=== PATIENT | female | born 1965 | race African-American/Black ===

== ENCOUNTER 2024-09-18 11:17 | Emergency (ER) | payer BC, SELFPAY ==
[2024-09-18 11:38] LABS: Glucose Point of Care 180 mg/dl (65-105)
[2024-09-18 11:40] VITALS: BP 137/70; PULSE 86
[2024-09-18 11:42] VITALS: BP 122/104; PULSE 90
[2024-09-18 11:44] VITALS: BP 133/85; PULSE 85
[2024-09-18 11:55] VITALS: BP 134/76; O2SAT 100
--- NOTE | 2024-09-18 12:18 | ED_ITS ---
HPI - General Adult General Chief complaint: Chest Pain Stated complaint: left side hurts History of Present Illness HPI narrative: Neetu Thakkar Is a 58 year female with past medical history CVA 1 year ago, diabetes, hypertension who presents with son with having generalized weakness this started today, left sided chest wall pain for 1 week. During triage her blood pressure was noted to be 61/42, patient felt dizzy repeated blood pressure was 62/44. Related Data Home Medications ?Medication ?Instructions ?Recorded ?Confirmed ?Last Taken ?Type aspirin 81 mg tablet,delayed 81 mg PO DAILY 09/18/24 09/18/24 Unknown History release carvedilol 6.25 mg tablet 6.25 mg PO DAILY 09/18/24 09/18/24 Unknown History dapagliflozin propanediol 10 mg 10 mg PO DAILY 09/18/24 09/18/24 Unknown History tablet (Farxiga) duloxetine 30 mg capsule,delayed 30 mg PO DAILY 09/18/24 09/18/24 Unknown History release furosemide 40 mg tablet 40 mg PO DAILY 09/18/24 09/18/24 Unknown History hydralazine 25 mg tablet 25 mg PO DAILY 09/18/24 09/18/24 Unknown History latanoprost 0.005 % eye drops 1 drp EACH EYE QPM 09/18/24 09/18/24 Unknown History Allergies Allergy/AdvReac Type Severity Reaction Status Date / Time No Known Allergies Allergy Verified 09/18/24 12:27 Review of Systems Review of Systems: All systems reviewed & are unremarkable except as noted in HPI and below PMFSH Past Medical History Medical History (Updated 09/18/24 @ 18:54 by Jasmine Lea PA-C) History of CVA (cerebrovascular accident) History of hypertension History of diabetes mellitus Social History Social History Substance use: never Exam Narrative: GENERAL: frail HEAD: Normocephalic, atraumatic. ENT: Nares clear, no rhinorrhea or epistaxis. NECK: Supple. No adenopathy or masses. CHEST: Clear to auscultation. No respiratory distress. No wheezes rales or rhonchi HEART: Regular rate and rhythm. Normal peripheral pulses. EXTREMITIES: Normal range of motion. No edema. SKIN: Warm, dry, no rash. NEURO: alert/ left sided residual weakness PSYCH: Normal mood, flat Course Course Level of Care: Express Care Visit Vital Signs Vital signs: Vital Signs Pulse Rate 86 09/18/24 11:40 Blood Pressure 137/70 09/18/24 11:40 Pulse Rate 85 09/18/24 11:44 Blood Pressure 134/76 09/18/24 11:55 Pulse Oximetry 100 09/18/24 11:55 Oxygen Delivery Room Air 09/18/24 11:55 Medical Decision Making MDM Narrative Medical decision making narrative: with pt arriving with weakness/ hypotension - she was taken to an exam room and layed down. she states she has had left sided chest pain for a week, Son states she has been more fatigued and weak today. She has needed help getting up which is new. EKG was done which is Normal Sinus rate 88, No ST elevation noted Orthostatics done and were negative but pt felt dizzy and if she was going to pass out. Blood sugar 180 Discussed with pt and son that I would recommend she go to the ER for more of a work up. She and her son are agreeable to this plan and agree to EMS transport I spoke with Attending Dr. Castillo at [facility], who accepts pt transfer. Medical Records Medical records reviewed: Yes I reviewed the external patient's medical records. Vital Signs Vital Signs: Vital Signs Pulse Rate 86 09/18/24 11:40 Blood Pressure 137/70 09/18/24 11:40 Pulse Rate 85 09/18/24 11:44 Blood Pressure 134/76 09/18/24 11:55 Pulse Oximetry 100 09/18/24 11:55 Oxygen Delivery Room Air 09/18/24 11:55 Lab Data Lab results reviewed: Yes I reviewed the patient's lab results. Labs: Lab Results 09/18/24 Range/Units 11:35 POC Capillary Glucose 180 H (65-105) mg/dl ECG Data EKG #1: Attestation: I personally reviewed and interpreted this ECG as follows: ECG completion date: 09/18/24 ECG completion time: 11:42 Prior ECG tracings: not available for review Interpretation: Sinus Rhythm Normal ECG, Rate 88, GA 144, QRS 84, QT 350, P 46 EKG Interpretation: normal rate, sinus rhythm and no ectopy Discharge Plan Discharge Clinical Impression: Chest pain in adult, Weakness Hypotension Qualifiers: Hypotension type: unspecified hypotension type Qualified Code(s): I95.9 - Hypotension, unspecified Patient Disposition: Acute Care Hospital [facility] Condition: Stable Patient Language: Indian Prescriptions: No Action loratadine [Claritin] 10 mg tablet 10 mg PO DAILY Qty: 30 0RF fluticasone propionate [Flonase Allergy Relief] 50 mcg/actuation s pray,suspension 2 spray NASAL DAILY Qty: 15.8 0RF Rx Instructions: administer into each nostril aspirin 81 mg tablet,delayed release (DR/EC) 81 mg PO DAILY carvedilol 6.25 mg tablet 6.25 mg PO DAILY dapagliflozin propanediol [Farxiga] 10 mg tablet 10 mg PO DAILY duloxetine 30 mg capsule,delayed release(DR/EC) 30 mg PO DAILY furosemide 40 mg tablet 40 mg PO DAILY hydralazine 25 mg tablet 25 mg PO DAILY latanoprost 0.005 % drops 1 drp EACH EYE QPM Follow-up/Referrals: Torsten,CAMI Daly [Primary Care Provider] - Time of Disposition: 12:05
--- NOTE | 2024-09-18 16:03 | ECG_ITS ---
Test Date: 2024-09-18 16:41:21 Measurements Intervals [place] Rate: 94 P: 56 HI: 150 QRS: 16 QRSD: 81 T: 49 QT: 343 QTc: 430 Interpretive Statements SINUS RHYTHM ST ELEVATION IN DIFFUSE LEAD- PROBABLY EARLY REPOLARIZATION BASELINE ARTIFACT- I, II, AVR, AVL, AVF, V1 BORDERLINE ECG Compared to ECG 09/18/2024 11:42:08 No significant changes Electronically Signed On 09-18-2024 16:44:11 PAINT PREPARER by Soy Chambers D.O.
== END 2024-09-18 11:55 | disposition short-term general hospital (02) ==
PROVIDERS: Emergency Provider Nurse Practitioner Family; PCP Physician Assistant
DX: I95.9 Hypotension, unspecified (principal); R07.9 Chest pain, unspecified; R53.1 Weakness; I10 Essential (primary) hypertension; E11.9 Type 2 diabetes mellitus without complications; Z86.73 Personal history of transient ischemic attack (TIA), and cerebral infarction without residual deficits; Z79.899 Other long term (current) drug therapy; Z79.82 Long term (current) use of aspirin
CPT/HCPCS: 82948; 93005; 99215; G0463

== ENCOUNTER 2024-09-18 12:21 | Emergency (ER) | payer BC, SELFPAY ==
[2024-09-18] VITALS (8 sets, daily range): BP systolic 94–143; BP diastolic 56–79; PULSE 89–93; RESP 14–20; TEMP 36.6; O2SAT 100
--- NOTE | ~2024-09-18 | XR_ITS ---
EXAMINATION: XR chest 2V DATE: 09/18/2024 15:27 INDICATION: Left-sided chest pain and dizziness TECHNIQUE: PA and lateral views of the chest were obtained. COMPARISON: Chest radiograph dated 05/21/2018 and 03/05/2012 FINDINGS: The lungs are clear with no focal airspace opacities, pulmonary edema, pleural effusion or pneumothor ax. The cardiomediastinal silhouette is normal. Mild thoracic spondylosis with chronic mild anterior wedging of a midthoracic vertebral body. IMPRESSION: 1. No acute cardiopulmonary disease. Reviewed, dictated and finalized at location A. TER [facility]ART[facility]APHIC
--- OUTSIDE RECORDS SUMMARY | 2024-09-18 12:24 | XMS_ITS | Clinical Summary ---
Author Organization [facility] Address [address] [place] [id number] Phone Care Team Providers Care Clinical Academic Allergist Name Role Phone Malika Sarmiento Primary Care Provider [phone] Allergies No known active allergies Medications Medication Sig Dispensed Refills Start Date End Date Status furosemide (LASIX) 40 MG tablet Take 40 mg by mouth 1 (one) time each day Active latanoprost (XALATAN) 0.005 % ophthalmic solution Administer 1 drop into both eyes every night Active carvedilol (COREG) 6.25 MG tablet Take 6.25 mg by mouth in the morning and 6.25 mg in the evening. Take with meals. Active hydrALAZINE (APRESOLINE) 25 MG tablet Take 25 mg by mouth in the morning and 25 mg in the evening and 25 mg before bedtime. Active aspirin (ST AHMET) 81 MG EC tablet Take 81 mg by mouth 1 (one) time each day Active insulin lispro (HumaLOG) 100 UNIT/ML injection Inject under the skin 3 (three) times a day before meals Active rosuvastatin (CRESTOR) 10 MG tablet Take 10 mg by mouth at bed time Active insulin glargine (LANTUS) 100 UNIT/ML injection Inject 30 Units under the skin every night Active Dapagliflozin Propanediol (Farxiga) 10 MG tablet Take 10 mg by mouth 1 (one) time each day Active DULoxetine (CYMBALTA) [address] capsule Take 30 mg by mouth 1 (one) time each day Active latanoprost (XALATAN) 0.005 % ophthalmic solution 1 drop every night Active brimonidine (ALPHAGAN P) 0.1 % ophthalmic solution Active Active Problems Problem Noted Date Diagnosed Date Iron deficiency anemia 06/17/2024 Serum creatinine above reference range Diabetes mellitus 06/16/2024 Essential hypertension 06/16/2024 Encounters Date Type Department Care Team Description 06/18/2024 1:40 PM LEAD COATER Office Visit [facility] [address] [facility] [address] [place] [address] Timmy Gomez MD Stage 3b chronic kidney disease (CMS-HCC) (Primary Dx); Essential hypertension from Last 3 Months Social History Tobacco Use Types Packs/Day Years Used Date Smoking Tobacco: Never Smokeless Tobacco: Never Tobacco Cessation:Counseling Given: Not Answered Sex and Gender Information Value Date Recorded Sex Assigned at Not on file Gender Identity Not on file Sexual Orientation Not on file Last Filed Vital Signs Vital Sign Reading Time Taken Comments Blood Pressure 138/77 06/18/2024 1:39 PM LEAD COATER Pulse 98 06/18/2024 1:39 PM LEAD COATER Temperature - - Respiratory Rate - - Oxygen Saturation - - Inhaled Oxygen Concentration - - Weight 66.2 kg (146 lb) 06/18/2024 1:39 PM LEAD COATER Height 165.1 cm (5' 5 ) 06/18/2024 1:39 PM LEAD COATER Body Mass Index 24.3 06/18/2024 1:39 PM LEAD COATER Plan of Treatment Upcoming Encounters Date Type Department Care Team (Late st Contact Info) Description 09/22/2024 1:20 PM LEAD COATER Office Visit [facility] [address] [facility] [address] [place] [address] Timmy Gomez MD [address] [address] Health Maintenance Due Date Last Done Comments Diabetic Foot Exam 10/19/1975 Ophthalmology Exam 10/19/1975 Pneumococcal PPSV23 Highest Risk Adult (1 of 3 - PCV13 ) 1984 Influenza Vaccine (#1) 2024 Care Teams Clinical Academic Allergist Relationship Specialty Start Date End Date Malika Sarmiento PA [address] [place] [phone] PCP - General Family Medicine 06/16/24
--- OUTSIDE RECORDS SUMMARY | 2024-09-18 12:24 | XMS_ITS | Encounter Summary ---
Author Organization [facility] Address [address] [place] [id number] Care Team Providers Care Medical Technician Assistant Name Role Phone Dianna Garcia MD Primary Care Provider [facility] Malika Sarmiento PA-C Primary Care Provider [phone] Encounter Details Date Type Department Care Team (Latest Contact Info) Description 06/03/2018 Abstract [facility] , Maxine Whipple MD Social History Tobacco Use Types Packs/Day Years Used Date Smoking Tobacco: Never Comments Unknown Sex and Gender Information Value Date Recorded Sex Assigned at Female 08/19/2024 1:31 PM CHEMIST INTERN Legal Sex Female 9:22 PM CDT Gender Identity Not on file Sexual Orientation Not on file documented as of this encounter Plan of Treatment Not on file documented as of this encounter Visit Diagnoses Not on filedocumented in this encounter Care Teams Medical Technician Assistant Relationship Specialty Start Date End Date Dianna Garcia MD PCP - General 05/22/13 04/30/24 Malika Sarmiento PA-C [address] [place] [id number] PCP - General PHYSICIAN ZIPPER JOINER 05/01/24 documented as of this encounter
--- OUTSIDE RECORDS SUMMARY | 2024-09-18 12:24 | XMS_ITS | Clinical Summary ---
Author Organization [facility] Address [address] [place] [address] Care Team Providers Care Bulb Farmworker Name Role Phone Benji Zeng MD Unavailable Source Comments [facility],non-owned Affiliates and Associated Physician Practices is amultiple site organization consisting of ambulatory clinics and hospital sitesin [place], [place]. This disclosure is being madepursuant to the Care Everywhere program and may not contain all information available regarding this patient. Last updated 18.[facility] [employer] Social History Tobacco Use Types Packs/Day Years Used Date Smoking Tobacco: Never Assessed Sex and Gender Information Value Date Recorded Sex Assigned at Not on file Gender Identity Not on file Sexual Orientation Not on file Plan of Treatment Health Maintenance Due Date Last Done Comments COLOGUARD (AGES 45-75) - COL ON CA SCREENING 1965 COLON MONITORING 1965 COLONOSCOPY - COLON CA SCREENING 1965 CT COLONOGRAPHY - COLON CA SCREENING 1965 Colorectal Cancer Screening 1965 FIT - COLON CA SCREENING 1965 FLEX SIG - COLON CA SCREENING 1965 LIPID TESTING 1965 MAMMOGRAM 1965 PAP SMEAR 1965 HIV SCREENING 1980 HEPATITIS C SCREENING 10/14/1983 DTAP/TDAP/TD VACCINES (1 - Tdap) 1984 HEPATITIS B VACCINE (1 of 3 - 19+ 3-dose series) 1984 PNEUMOCOCCAL VACCINE 50+ (1 of 1 - PCV) 10/19/2015 ZOSTER VACCINE (1 of 2) 10/19/2015 COVID-19 VACCINE ( - 2023-2 5 season) 2024 INFLUENZA VACCINE (#1) 2024 DEPRESSION SCREENING 07/29/2024 HIB VACCINE Aged Out No longer eligi ble based on patient's age to complete this topic HPV VACCINE Aged Out No longer eligi ble based on patient's age to complete this topic MENINGOCOCCAL (Group B) VACCINE Aged Out No longer eligible based on patient's age to complete this topic MENINGOCOCCAL VACCINE Aged Out No aleshia juan diego eligible based on patient's age to complete this topic PNEUMOCOCCAL VACCINE Aged Out No long er eligible based on patient's age to complete this topic Care Teams Bulb Farmworker Relationship Specialty Start Date End Date Benji Zeng MD [address] [place] [address] Hospitalist 12/25/23
--- OUTSIDE RECORDS SUMMARY | 2024-09-18 12:24 | XMS_ITS | Patient Health Summary ---
Author Organization [facility] Address [address] [place] [address] Care Team Providers Care Washing Machine Operator Name Role Phone Benji Zeng MD Unavailable [phone] Note from [facility],non-owned Affiliates and Associated Physician Practices is amultiple site organization consisting of ambulatory clinics and hospital sitesin [place], [place], [place] and [place]. This disclosure is being madepursuant to the Care Everywhere program and may not contain all information available regarding this patient. Last updated 18.[facility] Social History Tobacco Use Types Packs/Day Years Used Date Smoking Tobacco: Never Assessed Sex and Gender Information Value Date Recorded Sex Assigned at Not on file Gender Identity Not on file Sexual Orientation Not on file Care Teams Washing Machine Operator Relationship Specialty Start Date End Date Benji Zeng MD [address] [facility] [place] [place] [address] Hospitalist 12/25/23
--- OUTSIDE RECORDS SUMMARY | 2024-09-18 12:24 | XMS_ITS | Clinical Summary ---
Author Organization [facility] Address [address] [place] [address] Care Team Providers Care Tearoom Hostess Name Role Phone Malika Sarmiento Primary Care Provider [phone] Allergies No known active allergies Medications aspirin 81 mg enteric coated tablet Take 1 tablet (81 mg total) by mouth daily 30 tablet 11 12/27/2023 12/27/19 25 Active carvediloL (COREG) 6.25 mg tablet Take 1 tablet (6.25 mg total) by mouth 2 (two) times a day with meals 60 tablet 1 12/26/2023 12/26/19 25 Active clopidogreL (PLAVIX) 75 mg tablet Take 1 tablet (75 mg total) by mouth daily 30 tablet 11 12/27/2023 12/27/19 25 Active furosemide (LASIX) 40 mg tablet Take 1 tablet (40 mg total) by mouth daily 30 tablet 12/27/2023 12/27/19 25 Active hydrALAZINE (APRESOLINE) 25 mg tabletIndicatio ns:hypertension Take 1 tablet (25 mg total) by mouth 3 (three) times a day 90 tablet 1 12/26/2023 12/26/19 25 Active mirtazapine (REMERON) 15 mg tablet Take 1 tablet (15 mg total) by mouth nightly 30 tablet 12/26/2023 Active rosuvastatin (CRESTOR) 10 mg tablet Take 1 tablet (10 mg total) by mouth nightly 30 tablet 11 12/26/2023 12/26/19 25 Active insulin glargine (LANTUS) 100 unit/mL (3 mL) pen for injection Inject 38 Units under the skin nightly 15 mL 12/26/2023 Active pen needle, diabetic (Pen Needle) 32 gauge x 5/32 needle Use as directed once a day. 100 each 12/26/2023 Active insulin lispro (HumaLOG) 100 unit/mL pen for injection Inject 2-10 units under the skin 3 (three) times a day with meals. Blood glucose mg/dL 150-199: 2 units, 200-249: 4 units, 250-299: 6 units, 300-349: 8 units, 350 and greater: 10 units. Notify provider for blood glucose greater than 299 mg/dL. Refer to After Visit Summary for Sliding Scale Insulin Instructions. 15 mL 12/26/2023 Active pen needle, diabetic 32 gauge x 5/32 needle Use as directed 3 times a day. 100 each 12/26/2023 Active glucagon 1 mg kit Inject 1 mg into the muscle once as directed by provider for low blood sugar. 1 kit 12/26/2023 Active Active Problems Problem Noted Date Diagnosed Date Acute kidney injury superimposed on chronic kidn ey disease 12/13/2023 DANAY (acute kidney injury) 12/11/2023 Diabetic ketoacidosis with c ki associated with type 2 diabetes mellitus ([facility]/HCC) 12/04/2023 Encounters Date Type Department Care Team Description 06/22/2024 3:20 PM ANATOMY TEACHER - 06/22/2024 11:59 PM ANATOMY TEACHER Hospital Encounter [address] [address] Stage 3b chronic kidney disease (CKD) (HCC); Primary hypertension Discharge Disposition: Discharge to home or self care from Last 3 Months Surgical History Surgery Date Site/Laterality Comments SECTION Medical History Medical History Date Comments Anemia Hypertension Depression Tendonitis De Quervain's disease (tenosynovitis) Type 2 diabetes mellitus (HCC) Social History Tobacco Use Types Packs/Day Years Used Date Smoking Tobacco: Never Tobacco Cessation:Counseling Given: Not Answered [facility] Utilities Answer Date Recorded In the past 12 months has e [employer] gas, oil, or water [employer] threatened to shut off services in your home? No 12/05/2023 Social Connection and Isolat ion Panel [NHANES] Answer Date Recorded In a typical week, how many times do you talk on the phone with family, friends, or neighbors? More than three times a week 12/05/2023 How often do you get togethe r with friends or relatives? More than three times a week 12/05/2023 How often do you attend chur ch or amish services? More than 4 times per year 12/05/2023 Do you belong to any clubs o r organizations such as mormonism groups, unions, fraternal or athletic groups, or school groups? No 12/05/2023 How often do you attend meet ings of the clubs or organizations you belong to? Never 12/05/2023 Are you , , di vorced, , never , or living with a partner? 12/05/2023 Overall Financial Resource Strain (CARDIA) Answe r Date Recorded How hard is it for you to pa y for the very basics like food, housing, medical care, and heating? Not very hard 12/05/2023 Hunger Vital Sign Answer Date Recorded Within the past 12 months, y ou worried that your food would run out before you got the money to buy more. Never true 12/05/19 24 Within the past 12 months, t he food you bought just didn't last and you didn't have money to get more. Never true 12/05/2023 PRAPARE - Transportation Answer Date Re corded In the past 12 months, has l ack of transportation kept you from medical appointments or from getting medications? No 03/2024 In the past 12 months, has l ack of transportation kept you from meetings, work, or from getting things needed for daily living? No 12/05/2023 Housing Stability Vital Sign Answer Renny e Recorded In the last 12 months, was t here a time when you were not able to pay the mortgage or rent on time? No 12/05/2023 In the last 12 months, how many places have you lived? 1 12/05/2023 In the last 12 months, was t here a time when you did not have a steady place to sleep or slept in a skilled nursing (including now)? No 12/05/2023 Personal Safety Answer Date Recorded Have you ever been in or are you currently in a harmful physical or emotional relationship or is someone making you feel afraid or unsafe? Denies 12/13/2023 Comments Unknown Sex and Gender Information Value Date Recorded Sex Assigned at Not on file Legal Sex Female 1:36 AM ANATOMY TEACHER Gender Identity Not on file Sexual Orientation Not on file Obstetrics History Last Filed Vital Signs Vital Sign Reading Time Taken Comments Blood Pressure 93/64 12/26/2023 11:29 AM CDT Pulse 98 12/26/2023 11:29 AM CDT Temperature 36.8 C (98.2 F) 12/26/2023 11:29 AM CDT Respiratory Rate 16 12/26/2023 7:16 AM CDT Oxygen Saturation 99% 12/26/2023 11:29 AM CDT Inhaled Oxygen Concentration - - Weight 73.2 kg (161 lb 4.8 oz) 12/24/2023 3:00 P M CDT Height 167.6 cm (5' 5.98 ) 12/04/2023 12:00 PM C DT Body Mass Index 26.05 12/04/2023 12:00 PM CDT Plan of Treatment Health Maintenance Due Date Last Done Comments Breast Cancer Screening-Mammogram 1965 Cervical Cancer Screening 1965 Colon Cancer Screening-Colonoscopy 1965 Depression Screening 1965 Hepatitis C Screening 1965 Dilated Eye Exam 1965 Foot Exam 1965 Hepatitis B Screening 10/19/1983 Regular Well Visit/Exam 18-64 10/19/1983 Pneumococcal vaccine <65 (1 of 2 - PCV) 1984 Zoster Vaccine (1 of 2) 10/19/2015 Influenza Vaccine (#1) 2024 , 05/10/2022, 05/09/2021 Hemoglobin A1C 06/05/2024 12/04/2023 Lipid Panel 12/10/2024 12/11/2023, 08/23/2011 Albumin Creatinine Ratio, Urine 12/11/2024 4 eGFR 12/25/2024 12/26/2023, 11/27, 12/24/2023, Additional history exists DTaP/Tdap/Td Vaccine (3 - Td or Tdap) 02/28/2030 02/29/2020, 12/22/2008 Procedures Procedure Name Priority Date/Time Associated Diagnosis Comments US KIDNEY COMPLETE Schedule Routine, Read Routine (OP Routine) 06/22/2024 4:14 PM ANATOMY TEACHER Stage 3b chronic kidney disease (CKD) (HCC) Primary hypertension EGFR Routine 12/26/2023 9:26 AM CDT ALBUMIN CREATININE RATIO, URINE Routine 12/12/2023 2:20 PM CDT LIPID PANEL Routine 12/11/2023 3:34 AM CDT HEMOGLOBIN A1C STAT 12/04/2023 4:56 AM CDT from Last 3 Months or Most Recently Relevant to Health Maintenance Results * US Kidney Complete (06/22/2024 4:14 PM ANATOMY TEACHER) Anatomical Region Laterality Modality Kidney N/A Ultrasound 06/25/2024 9:00 PM ANATOMY TEACHER Narrative 06/25/2024 9:19 PM ANATOMY TEACHER EXAM DESCRIPTION: US KIDNEY COMPLETE REASON FOR STUDY: Abnormal renal function tests 1 week ago. TECHNIQUE: Ultrasound of the kidneys and urinary bladder was performed with grayscale imaging. COMPARISON: 12/06/2023 FINDINGS: RIGHT KIDNEY: The right kidney measures 10.5 cm in length. There is no hydronephrosis. There is normal cortical thickness and echogenicity. There is a 1.3 cm right renal cyst. LEFT KIDNEY: The left kidney measures 10.6 cm in length. There is no hydronephrosis. There is normal cortical thickness and echogenicity. URINARY BLADDER: The urinary bladder, as visualized, appears unremarkable. Only the left ureteral jet was visualized. OTHER: No other additional findings. IMPRESSION: 1.3 cm right renal cyst. Otherwise negative renal ultrasound. THIS IS AN ELECTRONICALLY VERIFIED FINAL REPORT 06/25/2024 9:19 PM - Electronically signed by Jamie Staley M.D. KT T: Report ID: [id number] Reading Location: [id number] Procedure Note Jamie Staley MD - 06/25/2024 EXAM DESCRIPTION: US KIDNEY COMPLETE REASON FOR STUDY: Abnormal renal function tests 1 week ago. TECHNIQUE: Ultrasound of the kidneys and urinary bladder was performedwith grayscale imaging. COMPARISON: 12/06/2023 FINDINGS: RIGHT KIDNEY: The right kidney measures 10.5 cm in length.There is no hydronephrosis. There is normal cortical thickness and echogenicity. There is a 1.3 cm right renal cyst. LEFT KIDNEY: The left kidney measures 10.6 cm in length. There is no hydronephrosis. There is normal cortical thickness and echogenicity. URINARY BLADDER: The urinary bladder, as visualized, appearsunremarkable. Only the left ureteral jet was visualized. OTHER: No other additional findings. IMPRESSION: 1.3 cm right renal cyst. Otherwise negative renalultrasound. THIS IS AN ELECTRONICALLY VERIFIED FINAL REPORT 06/25/2024 9:19 PM - Electronically signed by Jamie Staley M.D. KT T: Report ID: [id number] Reading Location: [place] [id number] us Timmy Gomez MD IM US PROCEDURES Final Result * (ABNORMAL) eGFR (12/26/2023 9:26 AM CDT) eGFR 38(L) >=60 mL/min/1. 73 m2 Comment: Interpretive Data Reference Interval Normal >/= 90 mL/min/1.73m2 Mildly decreased* 60 - 89 mL/min/1.73m2 Mildly to moderately decreased 45 - 59 mL/min/1.73m2 Moderately to severely decreased 30 - 44 mL/min/1.73m2 Severely decreased 15 - 29 mL/min/1.73m2 Kidney Failure < 15 mL/min/1.73m2 *Relative to young adult level Estimated glomerular filtration rate is determined by the 2020 CKD-EPI equation recommended by the National Kidney Foundation (A Unifying Approach to GFR Estimation: Recommendations of the NKF-ASK Task Force on Reassessing the Inclusion of Race in Diagnosing Kidney Disease, JASN 2020). The CKD-EPI equation should not be used for patients with unstable renal function and has not been validated in children and those over 70. Current interpretive data was last reviewed 2021. Blood 12/26/2023 9:26 AM CDT 12/26/2023 9:35 AM CDT us Benji Zeng MD LAB BLOOD ORDERABLES Final Res ult Performing Organization Address [facility] Co de Phone Number SARAH [address] [address] * (ABNORMAL) Albumin Creatinine Ratio, Urine (12/12/2023 2:20 PM CDT) Albumin Ur 39.6 mg/L Comment: Interpretive Data No reference range established. Current interpretive data was last revised 2018. Creatinine Ur 20.1 mg/dL SARAH Comment: Interpretive Data No reference range established. Current interpretive data was last revised 2018. Albumin Creatinine Ratio, Ur 197(H) 1 - 29 mg/g SARAH Urine 12/12/2023 2:20 PM CDT 12/12/2023 2:26 PM CDT us Dick Hoff MD LAB URINE ORDERABLES Final Re sult Performing Organization Address [facility] Co de Phone Number [address] [address] * (ABNORMAL) Lipid panel (12/11/2023 3:34 AM CDT) Cholesterol 125 30 - 199 mg/dL Comment: Interpretive Data Ages < or = 19 years Acceptable: <170 mg/dL Borderline high: 170-199 mg/dL High: >or= 200 mg/dL Ages > or = 20 years Desirable: <200 mg/dL Borderline high: 200-239 mg/dL High: >or= 240 mg/dL Literature References: 1. Expert Panel on Integrated Guidelines for Cardiovascular Health and Risk Reduction in Children and Adolescents. Pediatrics 2011;128:S213 2. NCEP Expert Panel. Circulation 2004;110:227 Current Interpretive Data was last revised on 2018. Triglycerides 224(H) <=149 mg/dL SARAH Comment: Interpretive Data Ages < or = 9 years Acceptable: <75 mg/dL Borderline high: 75-99 mg/dL High: >or= 100 mg/dL Ages 10 to 20 years Acceptable: <90 mg/dL Borderline high: 90-129 mg/dL High: >or= 130 mg/dL Ages > or = 20 years Desirable: <150 mg/dL Borderline high: 150-199 mg/dL High: 200-499 mg/dL Very high: >or= 499 mg/dL Literature References: 1. Expert Panel on Integrated Guidelines for Cardiovascular Health and Risk Reduction in Children and Adolescents. Pediatrics 2011;128:S213 2. NCEP Expert Panel. Circulation 2004;110:227 Current Interpretive Data was last revised on 2018. HDL 17(L) >=40 mg/dL SARAH NUNEZ Comment: Interpretive Data Ages < or = 19 years Acceptable: >45 mg/dL Borderline low: 40-45 mg/dL Low: <40 mg/dL Ages > or = 20 years Desirable: >or= 60 mg/dL Low: <40 mg/dL Literature References: 1. Expert Panel on Integrated Guidelines for Cardiovascular Health and Risk Reduction in Children and Adolescents. Pediatrics 2011;128:S213 2. NCEP Expert Panel. Circulation 2004;110:227 Current Interpretive Data was last revised on 2018. LDL, calculated 63 <=129 mg/dL SARAH NUNEZ Comment: Interpretive Data Ages < or = 19 years Acceptable: <110 mg/dL Borderline high: 110-129 mg/dL High: >or= 130 mg/dL Ages > or = 20 years Optimal: <100 mg/dL Near optimal: 100-129 mg/dL Borderline high: 130-159 mg/dL High: >160 mg/dL Literature References: 1. Expert Panel on Integrated Guidelines for Cardiovascular Health and Risk Reduction in Children and Adolescents. Pediatrics 2011;128:S213 2. NCEP Expert Panel. Circulation 2004;110:227 Current Interpretive Data was last revised on 2018. Non-HDL Cholesterol 108 mg/dL SARAH NUNEZ Comment: Interpretive Data Ages < or = 19 years Acceptable: <120 mg/dL Borderline high: 120-144 mg/dL High: >145 mg/dL Ages > or = 20 years When triglycerides are >200 mg/dL, Non-HDL cholesterol is a secondary target of therapy with treatment goals that are 30 mg/dL greater than the LDL cholesterol target. Literature References: 1. Expert Panel on Integrated Guidelines for Cardiovascular Health and Risk Reduction in Children and Adolescents. Pediatrics 2011;128:S213 2. NCEP Expert Panel. Circulation 2004;110:227 Current Interpretive Data was last revised on 2018. Chol/HDL ratio 7 SARAH Blood 12/11/2023 3:34 AM CDT 12/11/2023 3:55 AM CDT Kaylen Rosenthal MD LAB BLOOD ORDERABLE S Final Result Performing Organization Address [facility] de Phone Number [facility] [address] [place] [address] * (ABNORMAL) Hemoglobin A1c (12/04/2023 4:56 AM CDT) Hgb A1C 12.9(H) 4.0 - 5.6 % Estimated Average Glucose 324 mg/dL SARAH Comment: The ADA recommends reporting an estimated Average Glucose (eAG) with all Hemoglobin A1c results using the equation derived from a study of 507 normal and diabetic adults. Minority populations were underrepresented and children were not included. (Diabetes Care 31:2621-8503, 2008). The eAG is not equivalent to a fasting glucose. Blood 12/04/2023 4:56 AM CDT 12/04/2023 5:04 AM CDT Ovidio Whitfield MD LAB BLOOD ORDERABLES Final Result Performing Organization Address [facility] Co de Phone Number [facility] [address] [place] [address] from Last 3 Months or Most Recently Relevant to Health Maintenance Insurance [facility] Advance Directives For more information, please contact: [phone] * Full Code (Latest Code Status on File) Date Activated Date Inactivated Comments 12/06/2023 4:12 PM 12/26/2023 8:17 PM Care Teams Tearoom Hostess Relationship Specialty Start Date End Date Malika Sarmiento PA [address] [place] [id number] PCP - General Physician Tactical Air Control Party Manager 12/26/23
--- OUTSIDE RECORDS SUMMARY | 2024-09-18 12:24 | XMS_ITS | Clinical Summary ---
Author Organization [facility] Address [address] [place] [id number] Care Team Providers Care Digital Specialist Name Role Phone Malika Sarmiento PA-C Primary Care Provider [phone] Encounters Date Type Department Care Team Description 09/02/2024 3:01 PM PUBLIC HEALTH REGISTRAR - 09/02/2024 11:59 PM PUBLIC HEALTH REGISTRAR [place] [address] Lazara Goldman PA-C Discharge Disposition: Home or Self Care (Routine Discharge) 09/02/2024 Travel 07/06/2024 1:04 PM PUBLIC HEALTH REGISTRAR - 07/06/2024 11:59 PM PUBLIC HEALTH REGISTRAR [place] [address] Timmy Gomez MD Discharge Disposition: Home or Self Care (Routine Discharge) 07/06/2024 Travel 07/01/2024 4:26 PM PUBLIC HEALTH REGISTRAR - 07/01/2024 11:59 PM PUBLIC HEALTH REGISTRAR [place] [address] Timmy Gomez MD Discharge Disposition: Home or Self Care (Routine Discharge) 07/01/2024 10:07 AM PUBLIC HEALTH REGISTRAR - 07/01/2024 4:25 PM PUBLIC HEALTH REGISTRAR [place] [address] Timmy Gomez MD Discharge Disposition: Home or Self Care (Routine Discharge) 07/01/[address] [place] [address] Timmy Gomez MD 07/01/2024 Travel from Last 3 Months Social History Tobacco Use Types Packs/Day Years Used Date Smoking Tobacco: Never Comments Unknown Sex and Gender Information Value Date Recorded Sex Assigned at Female 08/19/2024 1:31 PM PUBLIC HEALTH REGISTRAR Legal Sex Female 9:22 PM CDT Gender Identity Not on file Sexual Orientation Not on file Last Filed Vital Signs Vital Sign Reading Time Taken Comments Blood Pressure 132/86 05/22/2013 8:57 AM CDT Pulse 94 05/22/2013 8:57 AM CDT Temperature - - Respiratory Rate - - Oxygen Saturation - - Inhaled Oxygen Concentration - - Weight 88.5 kg (195 lb) 05/22/2013 8:57 AM CDT Height 165.1 cm (5' 5 ) 08/12/2012 12:06 PM PUBLIC HEALTH REGISTRAR Body Mass Index 32.45 08/12/2012 12:06 PM PUBLIC HEALTH REGISTRAR Plan of Treatment Health Maintenance Due Date Last Done Comments Cervical Cancer Screening Pa p Smear (Age 30 to 64) Every 3 Years 1965 Colorectal Cancer Screening Colonoscopy (10 Years) 1965 Kidney Health Evaluation 1965 Annual Physical 1968 Pneumococcal Vaccine: Pediatrics (0 to 5 Years) and At-Risk Patients (6 to 64 Years) (1 of 2 - PCV) 10/19/1971 Diabetes: Retinopathy Eye Exam 10/19/1983 Hepatitis C 10/19/1983 DTaP, Tdap and Td Vaccines ( 1 - Tdap) 1984 Hepatitis B Vaccines (1 of 3 - 19+ 3-dose series) 1984 Cervical Cancer Screening Pa p with HPV Testing (Age 30 to 64) Every 5 Years 10/19/1995 Cervical Cancer Screening wi th HPV 10/19/1995 Mammogram Screening 2005 Lipid Panel 08/23/2012 08/23/2011 Zoster Vaccines (1 of 2) 10/19/2015 COVID-19 Vaccine ( - 2023-2 5 season) 2024 06/17/2021, 05/12/2021 Influenza Adult (#1) 2024 Hemoglobin A1C 12/30/2024 07/01/2024, 12/04/2023, 05/22/2013 Meningococcal B Vaccine Aged Out No l onger eligible based on patient's age to complete this topic Meningococcal Vaccine Aged Out No aleshia juan diego eligible based on patient's age to complete this topic RSV Immunizations Under 20 Months Aged Out No longer eligible b ased on patient's age to complete this topic Procedures Procedure Name Priority Date/Time Associated Diagnosis Comments MRI BRAIN WO CON Routine 09/02/2024 4:58 PM PUBLIC HEALTH REGISTRAR Epilepsy, unspecified, not intractable, without status epilepticus ([facility]/HCC HHS/HCC) CREATININE URINE RANDOM Routine 07/06/2024 1:05 PM PUBLIC HEALTH REGISTRAR Stage 3b chronic kidney disease ([facility]/HCC HHS/HCC) Hypertension, essential PROTEIN TOTAL URINE RANDOM Routine 07/06/2024 1:05 PM PUBLIC HEALTH REGISTRAR Stage 3b chronic kidney disease ([facility]/HCC HHS/HCC) Hypertension, essential HC URINALYSIS AUTO W/O MICRO Routine 07/06/2024 1:05 PM PUBLIC HEALTH REGISTRAR Stage 3b chronic kidney disease (CMS/HCC HHS/HCC) Hypertension, essential FERRITIN Routine 07/01/2024 10:21 AM PUBLIC HEALTH REGISTRAR Stage 3b chronic kidney disease ([facility]/HCC HHS/HCC) Hypertension, essential HEMOGLOBIN, GLYCOSYLATED Routine 07/01/2024 10:21 AM PUBLIC HEALTH REGISTRAR Stage 3b chronic kidney disease ([facility]/HCC HHS/HCC) Hypertension, essential VITAMIN D, 25 OH Routine 07/01/2024 10:2 1 AM PUBLIC HEALTH REGISTRAR Stage 3b chronic kidney disease (CMS/HCC HHS/HCC) Hypertension, essential CBC W/DIFF AUTOMATED Routine 07/01/2024 10:21 AM PUBLIC HEALTH REGISTRAR Stage 3b chronic kidney disease (CMS/HCC HHS/HCC) Hypertension, essential RENAL FUNCTION PANEL Routine 07/01/2024 10:21 AM PUBLIC HEALTH REGISTRAR Stage 3b chronic kidney disease ([facility]/HCC HHS/HCC) Hypertension, essential LIPID PANEL Routine 08/23/2011 12:00 AM PUBLIC HEALTH REGISTRAR from Last 3 Months or Most Recently Relevant to Health Maintenance Results * MRI BRAIN WO CON (09/02/2024 4:58 PM PUBLIC HEALTH REGISTRAR) Anatomical Region Laterality Modality Head Magnetic Resonan ce 09/02/2024 7:45 PM PUBLIC HEALTH REGISTRAR Impressions 09/02/2024 7:47 PM PUBLIC HEALTH REGISTRAR IMPRESSION: 1. No acute intracranial abnormality. 2. 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 Referred By: LAZARA GOLDMAN Interpreted By: Klever Chavis MD, 09/02/2024 7:45 PM Narrative 09/02/2024 7:47 PM PUBLIC HEALTH REGISTRAR [address] [address] EXAMINATION: MRI BRAIN WO CON, 09/02/2024 7:45 PM TECHNIQUE: Multiplanar multisequence magnetic resonance images of the brain were obtained without intravenous contrast. HISTORY: Seizure on 2023 COMPARISON: CT head 02/19/2007 FINDINGS: There is no restricted diffusion to suggest an acute infarction. No hemorrhagic focus of susceptibility. Hippocampal formations demonstrate normal volume, signal intensity and architecture. Sella, callosal, pineal, and craniovertebral junction regions appear within normal limits. There is no extra-axial fluid collection. Old infarct involving the left centrum semiovale region extending into the internal capsule. Old infarct involving the inferolateral right cerebellar hemisphere. Possible additional old infarct involving the posterior limb of the internal capsule on the right/anterior thalamus. Orbital contents appear normal. Mild mucosal thickening of the paranasal sinuses. Trace left mastoid air cell fluid. The right mastoid air cells are well-aerated. Procedure Note Klever Chavis MD - 09/02/20[address], [place] [address] EXAMINATION: MRI BRAIN WO CON, 09/02/2024 7:45 PM TECHNIQUE: Multiplanar multisequence magnetic resonance images of thebrain were obtained without intravenous contrast. HISTORY: Seizure on 2023 COMPARISON: CT head 02/19/2007 FINDINGS: There is no restricted diffusion to suggest an acute infarction.No hemorrhagic focus of susceptibility. Hippocampal formationsdemonstrate normal volume, signal intensity and architecture. Sella,callosal, pineal, and craniovertebral junction regions appear withinnormal limits. There is no extra-axial fluid collection. Old infarct involving the leftcentrum semiovale region extending into the internal capsule. Old infarctinvolving the inferolateral right cerebellar hemisphere. Possibleadditional old infarct involving the posterior limb of the internalcapsule on the right/anterior thalamus. Orbital contents appear normal.Mild mucosal thickening of the paranasal sinuses. Trace left mastoid aircell fluid. The right mastoid air cells are well-aerated. IMPRESSION: 1. No acute intracranial abnormality. 2. 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 Referred By: LAZARA GOLDMAN Interpreted By: Klever Chavis MD, 09/02/2024 7:45 PM Lazara Goldman PA-C MRI Final Resu lt * PROTEIN TOTAL URINE RANDOM (07/06/2024 1:05 PM PUBLIC HEALTH REGISTRAR) PROTEIN URINE TOTAL RANDOM 5.6 <10 MG/DL 07/06/2024 1:49 PM PUBLIC HEALTH REGISTRAR [facility] URINE SPECIMEN / Unknown 07/06/2024 1:05 PM PUBLIC HEALTH REGISTRAR us Timmy Gomez MD URINE ORDERABLES Final Result [facility] [address] [place] [address], [place] [phone] * CREATININE URINE RANDOM (07/06/2024 1:05 PM PUBLIC HEALTH REGISTRAR) CREATININE (U) 40.5 28 - 217 MG/DL 07/06/2024 1:49 PM [facility] URINE SPECIMEN / Unknown 07/06/2024 1:05 PM PUBLIC HEALTH REGISTRAR Timmy Gomez MD URINE ORDERABLES Final Result [facility] [address] [place] [address], [place] [phone] * (ABNORMAL) URINALYSIS (07/06/2024 1:05 PM PUBLIC HEALTH REGISTRAR) SPECIMEN TYPE URINE CLEAN CATCH 07/06/2024 1:05 PM [facility] COLOR (U) LIGHT YELLOW 07/06/2024 1:45 PM [facility] TRANSPARENCY CLEAR 07/06/2024 1:45 PM [facility] SPECIFIC GRAVITY (U) 1.007 1.001 - 1.030 07/06/2024 1:45 PM PUBLIC HEALTH REGISTRAR [facility] U PH 5.0 5.0 - 9.0 07/06/2024 1:45 PM [facility] LEUKOCYTES (U) 250(A) NEGATIVE 07/06/2024 1:45 PM [facility] NITRITES NEGATIVE NEGATIVE 07/06/2024 1:45 PM [facility] PROTEIN RANDOM (U) NEGATIVE <30 MG/DL 07/06/2024 1:45 PM [facility] GLUCOSE (U) >1000(A) NORMAL MG/DL 07/06/2024 1:45 PM [facility] KETONES MG/DL (U) NEGATIVE NEGATIVE MG/DL 07/06/2024 1:45 PM PUBLIC HEALTH REGISTRAR [facility] UROBILINOGEN NORMAL NORMAL MG/DL 07/06/2024 1:45 PM PUBLIC HEALTH REGISTRAR [facility] BILIRUBIN (U) NEGATIVE NEGATIVE MG/DL 07/06/2024 1:45 PM PUBLIC HEALTH REGISTRAR [facility] BLOOD (U) NEGATIVE NEGATIVE 07/06/2024 1:45 PM PUBLIC HEALTH REGISTRAR [facility] MUCUS MANY /LPF 07/06/2024 1:45 PM PUBLIC HEALTH REGISTRAR [facility] WBC/HPF 14(H) <6 /HPF 07/06/2024 1:45 PM PUBLIC HEALTH REGISTRAR [facility] BACTERIA (U) RARE(A) NONE /HPF 07/06/2024 1:45 PM PUBLIC HEALTH REGISTRAR [facility] SQUAMOUS EPITHELIALS RARE /HPF 07/06/2024 1:45 PM PUBLIC HEALTH REGISTRAR [facility] URINE SPECIMEN OBTAINED BY CLEAN CATCH PROCEDURE / Unknown 07/06/2024 1:05 PM PUBLIC HEALTH REGISTRAR Timmy Gomez MD URINE ORDERABLES Final Result [facility] [address] [place] [address], * (ABNORMAL) HEMOGLOBIN, GLYCOSYLATED (07/01/2024 10:21 AM PUBLIC HEALTH REGISTRAR) HGB A1C 6.3(H) <5.7 % 07/01/2024 11:10 AM PUBLIC HEALTH REGISTRAR [facility] Comment: ADA GUIDELINES 2010 5.7 TO 6.4% INCREASED RISK OF DIABETES > OR = 6.5% CONSISTENT WITH DIABETES ESTIMATED AVG GLUCOSE 134 mg/dL 07/01/2024 11:10 AM PUBLIC HEALTH REGISTRAR [facility] 07/01/2024 10:2 1 AM PUBLIC HEALTH REGISTRAR Timmy Gomez MD LABORATORY Final Result [facility] [address] [place] [address], * (ABNORMAL) RENAL FUNCTION PANEL (07/01/2024 10:21 AM PUBLIC HEALTH REGISTRAR) [facility] Signature GLUCOSE 88 70 - 99 MG/DL 07/01/2024 11:03 AM [facility] BUN 25(H) 7 - 18 MG/DL 07/01/2024 11:03 AM [facility] CREATININE S/P/B 1.47(H) 0.55 - 1.02 MG/DL 07/01/2024 11:03 AM [facility] SODIUM S/P/B 137 136 - 145 MMOL/L 07/01/2024 11:03 AM [facility] POTASSIUM S/P/B 3.8 3.5 - 5.1 MMOL/L 07/01/2024 11:03 AM [facility] CHLORIDE S/P/B 106 97 - 115 MMOL/L 07/01/2024 11:03 AM [facility] CO2 27.5 21 - 32 MMOL/L 07/01/2024 11:03 AM [facility] CALCIUM S/P/B 9.9 8.5 - 10.1 MG/DL 07/01/2024 11:03 AM [facility] ALBUMIN S/P/B 3.3(L) 3.4 - 5.0 G/DL 07/01/2024 11:03 AM [facility] PHOSPHORUS 3.7 2.5 - 4.9 MG/DL 07/01/2024 11:03 AM [facility] ANION GAP 3.5 2 - 10 MMOL/L 07/01/2024 11:03 AM [facility] BUN CREATININE RATIO 17.0 6 - 26 07/01/2024 11:03 AM [facility] GFR ESTIMATE 41(L) >90 ML/MIN/1.7 3 M2 07/01/2024 11:03 AM [facility] Comment: NOTE: eGFR is not calculated for patients <18 years of age or gender unknown. This is an estimated GFR calculation using the new CKD EPI creatinine equation without race and so does not require a correction factor for race. This estimated GFR should not be used for calculating drug doses. 07/01/2024 10:2 1 AM PUBLIC HEALTH REGISTRAR Timmy Gomez MD LABORATORY Final Result [facility] [address] [place] [address], * (ABNORMAL) CBC W/DIFF AUTOMATED (07/01/2024 10:21 AM PUBLIC HEALTH REGISTRAR) WBC 5.77 4.5 - 11.0 x10'3/uL 07/01/2024 10:41 AM [facility] RBC 3.56(L) 4.20 - 5.40 x10'6/uL 07/01/2024 10:41 AM [facility] HGB 10.2(L) 12.0 - 16.0 G/DL 07/01/2024 10:41 AM [facility] HCT 31.2(L) 38.0 - 48.0 % 07/01/2024 10:41 AM [facility] MCV 87.6 81.0 - 99.0 FL 07/01/2024 10:41 AM [facility] MCH 28.7 27.0 - 31.0 PG 07/01/2024 10:41 AM [facility] MCHC 32.7 32.0 - 36.0 G/DL 07/01/2024 10:41 AM [facility] RDW 12.5 11.5 - 14.5 % 07/01/2024 10:41 AM [facility] PLT 239 130 - 400 x10'3/uL 07/01/2024 10:41 AM [facility] MPV 9.5 9.3 - 12.2 FL 07/01/2024 10:41 AM [facility] DIFFERENTIAL TYPE AUTOMATED DIFFERENTIAL 07/01/2024 10:41 AM [facility] NEUTROPHILS % 54.1 % 07/01/2024 10:41 AM [facility] LYMPHOCYTES % 37.3 % 07/01/2024 10:41 AM [facility] MONOCYTES % 6.6 % 07/01/2024 10:41 AM [facility] EOSINOPHILS 1.4 % 07/01/2024 10:41 AM [facility] BASOPHILS 0.3 % 07/01/2024 10:41 AM [facility] IMMATURE GRANS % 0.3 % 07/01/20 10:41 AM [facility] ABS. NEUTROPHILS 3.12 1.80 - 7.70 x10'3/uL 07/01/2024 10:41 AM [facility] ABS. LYMPHOCYTES 2.15 1.00 - 4.80 x10'3/uL 07/01/2024 10:41 AM [facility] ABS. MONOCYTES 0.38 0.24 - 0.86 x10'3/uL 07/01/2024 10:41 AM [facility] ABS. EOSINOPHILS 0.08 0.04 - 0.36 x10'3/uL 07/01/2024 10:41 AM PUBLIC HEALTH REGISTRAR [facility] ABS. BASOPHILS 0.02 0.01 - 0.08 x10'3/uL 07/01/2024 10:41 AM PUBLIC HEALTH REGISTRAR [facility] ABS. IMMATURE GRANULOCYTES 0.02 0.00 - 0.49 x10'3/uL 07/01/2024 10:41 AM PUBLIC HEALTH REGISTRAR [facility] 07/01/2024 10:2 1 AM PUBLIC HEALTH REGISTRAR us Timmy Gomez MD LABORATORY Final Result [facility] [address] [place] [address], [place] [phone] * (ABNORMAL) VITAMIN D, 25 OH (07/01/2024 10:21 AM PUBLIC HEALTH REGISTRAR) VITAMIN D 25 HYDROXY S/P/B 29(L) 30 - 100 NG/ML 07/01/2024 11:10 AM PUBLIC HEALTH REGISTRAR [facility] Comment: INTERPRETATION DEFICIENT <20 INSUFFICIENT 20-29 SUFFICIENT 30-100 07/01/2024 10:2 1 AM PUBLIC HEALTH REGISTRAR us Timmy Gomez MD LABORATORY Final Result [facility] [address] [place] [address], [place] [phone] * FERRITIN (07/01/2024 10:21 AM PUBLIC HEALTH REGISTRAR) FERRITIN 239.2 8.0 - 388.0 NG/ML 07/01/2024 12:34 PM PUBLIC HEALTH REGISTRAR [facility] 07/01/2024 10:2 1 AM PUBLIC HEALTH REGISTRAR us Timmy Gomez MD LABORATORY Final Result [facility] [address] [place] [address], * LIPID PANEL (08/23/2011 12:00 AM PUBLIC HEALTH REGISTRAR) TRIGLYCERIDES 92 20 - 199 MEDINF ORMATIX TO EPIC CONVERSION CHOLESTEROL 220 50 - 199 MEDINFOR MATIX TO EPIC CONVERSION LDL CHOLESTEROL (LMP) 143 45 - 99 MEDINFORMATIX T O EPIC CONVERSION GLUCOSE 208 70 - 120 MEDINFORMA TIX TO EPIC CONVERSION HDL 59 46 - 100 MEDINFORMA TIX TO EPIC CONVERSION 08/23/2011 08/23/2011 us Generic Conversion [facility] Final R esult MEDINFORMATIX TO EPIC CONVERSION from Last 3 Months or Most Recently Relevant to Health Maintenance Insurance [facility] C/O PROVIDER SERVICES [employer] [id number] Care Teams Digital Specialist Relationship Specialty Start Date End Date Malika Sarmiento PA-C [address] [place] [id number] PCP - General PHYSICIAN SALESPERSON WIGS 05/01/24
--- OUTSIDE RECORDS SUMMARY | 2024-09-18 12:24 | XMS_ITS | Referral Summary ---
Author Organization [facility] Address [address] [place] [address] Care Team Providers Care Corporate Strategy Intern Name Role Phone Benji Zeng MD Unavailable [phone] Source Comments [facility] Affiliates and Associated Physician Practices is amultiple site organization consisting of ambulatory clinics and hospital sitesin [place], [place], [place] and [place]. This disclosure is being madepursuant to the Care Everywhere program and may not contain all information available regarding this patient. Last updated 18.[facility] Social History Tobacco Use Types Packs/Day Years Used Date Smoking Tobacco: Never Assessed Sex and Gender Information Value Date Recorded Sex Assigned at Not on file Gender Identity Not on file Sexual Orientation Not on file Plan of Treatment Not on file Care Teams Corporate Strategy Intern Relationship Specialty Start Date End Date Benji Zeng MD [address] [place] [address] Hospitalist 12/25/23
--- OUTSIDE RECORDS SUMMARY | 2024-09-18 12:24 | XMS_ITS | Referral Summary ---
Author Organization [facility] Address [address] [place] [address] Care Team Providers Care Program Director Name Role Phone Malika Sarmiento Primary Care Provider [phone] Encounters Date Type Department Care Team Description 06/22/2024 3:20 PM INFORMATION ASSURANCE ANALYST - 06/22/2024 11:59 PM INFORMATION ASSURANCE ANALYST Hospital Encounter [facility] [place] [address], [place] [id number] Stage 3b chronic kidney disease (CKD) (HCC); Primary hypertension Discharge Disposition: Discharge to home or self care from Last 3 Months Allergies No known active allergies Medications aspirin [...] daily 30 tablet 12/27/2023 12/27/19 25 Active furosemide (LASIX) 40 mg tablet Take 1 tablet (40 mg total) by mouth daily 30 tablet 11 12/27/2023 12/27/19 25 Active hydrALAZINE (APRESOLINE) 25 [...] ki associated with type 2 diabetes mellitus ([facility]) 12/04/2023 Social History Tobacco Use Types Packs/Day Years Used Date Smoking Tobacco: Never Tobacco Cessation:Counseling Given: Not Answered [facility] Utilities Answer Date Recorded In the past 12 months has [employer], [employer], [employer], or water [employer] threatened to shut off services in your [...] often do you attend chur ch or sabianism services? More than 4 times per year 12/05/2023 Do you belong to any clubs o r organizations such as rastafarian groups, unions, fraternal or athletic groups, or [...] place to sleep or slept in a chcf (including now)? No 12/05/2023 Personal Safety Answer Date Recorded Have you ever been in or are you currently in a harmful physical or emotional relationship or is someone making you feel afraid or unsafe? Denies 12/13/2023 Comments Unknown Sex and Gender Information Value Date Recorded Sex Assigned at Not on file Legal Sex Female 1:36 AM INFORMATION ASSURANCE ANALYST Gender Identity Not on file Sexual Orientation [...] 12/04/2023 12:00 PM CDT Plan of Treatment Not on file Procedures Procedure Name Priority Date/Time Associated Diagnosis Comments US KIDNEY COMPLETE Schedule Routine, Read Routine (OP Routine) 06/22/2024 4:14 PM INFORMATION ASSURANCE ANALYST Stage 3b chronic kidney disease (CKD) (HCC) Primary hypertension EGFR Routine 12/26/2023 9:26 AM CDT ALBUMIN CREATININE RATIO, URINE Routine 12/12/2023 2:20 PM CDT LIPID PANEL Routine 12/11/2023 3:34 AM CDT HEMOGLOBIN A1C STAT 12/04/2023 4:56 AM CDT from Last 3 Months or Most Recently Relevant to Health Maintenance Results * US Kidney Complete (06/22/2024 4:14 PM INFORMATION ASSURANCE ANALYST) Anatomical Region Laterality Modality Kidney N/A Ultrasound 06/25/2024 9:00 PM INFORMATION ASSURANCE ANALYST Narrative 06/25/2024 9:19 PM INFORMATION ASSURANCE ANALYST EXAM DESCRIPTION: US KIDNEY COMPLETE REASON FOR [...] Jamie Staley M.D. KT T: Report ID: [id number] Reading Location: [id number] Procedure Note Jamie Staley MD - 06/25/2024 [...] Jamie Staley M.D. KT T: Report ID: [id number] Reading Location: [id number] Timmy Gomez MD [facility] US PROCEDURES Final Result * (ABNORMAL) eGFR [...] ORDERABLES Final Res ult Performing Organization Address City/[facility]/ZIP Co de Phone Number [id number] [place] [address] * (ABNORMAL) Albumin Creatinine Ratio, Urine (12/12/2023 2:20 PM CDT) Albumin Ur 39.6 mg/L Comment: Interpretive Data No reference range established. Current interpretive data was last revised 2018. Creatinine Ur 20.1 mg/dL [facility] Comment: Interpretive Data No reference range established. Current interpretive data was last revised 2018. Albumin Creatinine Ratio, Ur 197(H) 1 - 29 mg/g [facility] Urine 12/12/2023 2:20 PM CDT 12/12/2023 2:26 PM CDT us Dick Hoff MD LAB URINE ORDERABLES Final Re sult Performing Organization Address City/[facility]/ZIP Co de Phone Number [address] [place] [address] * (ABNORMAL) Lipid panel (12/11/2023 3:34 AM [...] on 2018. HDL 17(L) >=40 mg/dL [facility] Comment: Interpretive Data Ages < [...] 2018. LDL, calculated 63 <=129 mg/dL [facility]AH Comment: Interpretive Data Ages < [...] on 2018. Non-HDL Cholesterol 108 mg/dL [facility] Comment: Interpretive Data Ages < [...] MD LAB BLOOD ORDERABLE S Final Result [facility] [address] [facility] [place] [address] * (ABNORMAL) Hemoglobin A1c (12/04/2023 4:56 AM CDT) Hgb A1C 12.9(H) 4.0 - 5.6 % Estimated Average Glucose 324 mg/dL [facility] Comment: The ADA recommends reporting an estimated Average Glucose (eAG) with all Hemoglobin A1c results using the equation derived from a study of 507 normal and diabetic adults. Minority populations were underrepresented and children were not included. (Diabetes Care 31:0630-2396, 2008). The eAG is not equivalent to a fasting glucose. Blood 12/04/2023 4:56 AM CDT 12/04/2023 5:04 AM CDT us Ovidio Whitfield MD LAB BLOOD ORDERABLES Final Result [facility] [address] [facility] [place] [address] from Last 3 Months or Most Recently Relevant to Health Maintenance Insurance PLAN PLAN Advance Directives For more information, please contact: [phone] * Full Code (Latest Code Status on File) Date Activated Date Inactivated Comments 12/06/2023 4:12 PM 12/26/2023 8:17 PM Care Teams Program Director Relationship Specialty Start Date End Date Malika Sarmiento PA [address] [place] [id number] PCP - General Physician Carpentry Teacher 12/26/23
--- OUTSIDE RECORDS SUMMARY | 2024-09-18 12:24 | XMS_ITS | Encounter Summary ---
Author Organization [facility] Address [address] [place] [address] Care Team Providers Care Slip Tender Name Role Phone Benji Zeng MD Unavailable Reason for Referral * Consultation (Routine) - Denied Specialty Diagnoses / Procedures Referred By Contac t Referred To Contact Neurology Diagnoses Other specified polyneuropathies Malika Sarmiento PA-C [address] [place] [phone] Job Knox MD [address] [place] [address] Referral ID Status Reason Start Date Expiration Date V isits Requested Visits Authorized [id number] Denied Specialty Services Required 06/17/2024 06/17/2025 1 0 R Encounter Details Date Type Department Care Team (Latest Contact Info) Description 06/17/2024 Transcribe Orders [facility] - Centralized Scheduling [address] [place] [phone] Malika Sarmiento PA-C [address] [place] [phone] Other specified polyneuropathies Social History Tobacco Use Types Packs/Day Years Used Date Smoking Tobacco: Never Assessed Sex and Gender Information Value Date Recorded Sex Assigned at Not on file Gender Identity Not on file Sexual Orientation Not on file documented as of this encounter Plan of Treatment Scheduled Referrals Name Type Priority Associated Diagnoses Orde r Schedule AMB REFERRAL TO NEUROLOGY Outpatient Referral Routine Other specified polyneuropathies 1 Occurrences starting 06/17/2024 until 06/17/2025 documented as of this encounter Visit Diagnoses Diagnosis Other specified polyneuropathies- Primary documented in this encounter Care Teams Slip Tender Relationship Specialty Start Date End Date Benji Zeng MD [address] [address] Hospitalist 12/25/23 documented as of this encounter
--- OUTSIDE RECORDS SUMMARY | 2024-09-18 12:25 | XMS_ITS | Data Portability ---
Author Organization [facility] Address [address] [place] [address] Care Team Providers Care Product Distribution Specialist Name Role Phone MALIKA CAMPBELL Primary Care Provider [phone] Assessment Encounter Date Assessment Date Assessment LastModified by Organization Details LastModified Time 06/17/2024 06/17/2024 Lab completed on 06/09/2024 A1C 6.4%, Albumin 11.1, Creatinine 91.0 Labs completed on 05/19/2024 Cholesterol 190, Trig 124, LDL 120, HDL 52, Sodium 137, Potassium 4.4, Chloride 99, Co2 27, BUN 29, Creatinine 1.64, Glucose 130, Calcium 10.3, Bilirubin 0.2, AST 11, ALT 7, Protein 7.8, Albumin 4.2, Alkphos 78, CK 44 Laboratories performed on 04/07/2024 labs performed on glucose 178, BUN 19, creatinine 1.37, sodium 131 potassium 4.4, chloride 94, bicarb 27, calcium 10.1, protein 7.0, albumin 3.9, bilirubin 0.2, alkaline phosphatase 100, AST 12, ALT 6, white blood cell count 7500, hemoglobin 9.5, platelet count [id number] iron binding capacity, iron and iron saturations are within normal limits, ferritin was elevated at 359 03/03/2024 cholesterol 150 triglycerides 203 HDL 36, LDL 80, white blood cell count 7400, hemoglobin 9.0, platelet count [id number] ECG performed on 04/22/2024 shows sinus rhythm with a rate 92 beats per minute, early repolarization pattern. ASSESSMENT CORONARY CALCIFICATION with a calcium score of [address] calcium scoring done on 05/01/2024. 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 PLAN: Recommend a low-fat low-cholesterol low-sodium diabetic diet. I would recommend she undergo a treadmill stress test in light of her elevated coronary calcium score of 179. I recommend she remain on aspirin 81 mg daily, carvedilol 6.25 mg p.o. b.i.d., clopidogrel 75 mg daily, furosemide 40 mg daily, Farxiga 10 mg daily hydralazine 25 mg p.o. t.i.d. and I asked her to increase her rosuvastatin from 10 mg up to 20 mg p.o. daily. I asked her to stop her rosuvastatin if she has any muscle pains or weakness. I would like to set her up for a Lexiscan Myoview stress test evaluate her for myocardial ischemia in light of her coronary calcification and diabetes mellitus as well as her hypertension and hyperlipidemia but she can not walk on a treadmill due to her left-sided weakness she walks with a cane so we will set her up for the Lexiscan Myoview stress test. I would like her to return in 6 weeks' time and obtain a fasting lipid profile, complete metabolic profile, CBC and a CPK prior to her follow-up visit. CARDIAC TESTING TRANSESOPHAGEAL ECHOCARDIOGRAM 12/13/2023 which showed normal Doppler flow and structure of the aortic mitral tricuspid and pulmonic valves intact interatrial septum with no evidence of [id number] shunt normal left ventricular systolic function mildly dilated left atrial appendage the left atrium was normal in size as was the right atrium ECHOCARDIOGRAM 12/10/2023 when she was admitted with DKA. It showed LV is normal in size with moderate concentric left ventricular hypertrophy LVEF 60 to 65% RV cavity size and function are normal severe left atrial enlargement the aortic valve is trileaflet with a mobile entity on the ventricular side of the valve with 8 mm x 3 mm echo density could not rule out vegetation there is moderate tricuspid regurgitation trace to mild mitral regurgitation the IVC was upper limits of normal with impaired respiratory variation consistent with elevated right atrial pressure and unable to calculate RVSP, by strict criteria, diastolic function is normal. EVENT MONITOR 12/27/2023 it stated she word for 3 days however I believe it is a typo as she tells me she worked for the entire 30 day baseline rhythm was sinus rhythm with an average heart rate of 98 beats per minute a minimal heart rate was 77 beats per minute maximum heart rate was 120 beats per minute less than 1% PVC burden and less than 1% Pac burden there were no pauses more than 3 seconds and no episodes of atrial fibrillation there was no serious or critical events there were no patient triggered events CT CALCIUM SCORE 05/01/2024: Total Cardiac Calcium Score: 179. Left main coronary artery score 4.3, lad a score of 0.642, left circumflex artery score 89.4 and right coronary artery had score 84.3. This implies a moderate plaque burden with moderate nonobstructive coronary artery disease highly likely. A cardiac calcium score of 179 is above the 90th percentile for women between the ages of 55 and 59, exact percentile is calculated to be 99%. This means that 98% of the population is a lower calcium score. [email or web address] Not available 06/17/2024 17:16:42 Plan of Treatment Reminders Order Date Submit Date Provider Last Modified By Organization Details Last Modified Time Details Appointments ANY 15 2024 09:00A Javy Carrasco MD Not available Not available Not available ANY 30 2024 09:00A CAMI GRIMM Not available Not available Not available Lab CMP, serum or plasma 2023 024 MEET [facility] (Lab), [address] [place], [address], 07/16/2024 14:11:40 glucose, fingerst ick, blood 2023 024 [email or web address] In-Office Order, Internal Use Only DO Not Attach Compendium DO Not Attach Compendium, Do Not Delete/merge, [id number] 07/13/2024 15:22:47 lipid panel, serum 2023 025 MEET [employer] [facility] (Lab), [address] [place], [address], 07/31/2024 21:22:48 CK (creatin e kinase), total, serum 2023 025 [facility] (Lab), [address], [place], [address], 07/31/2024 21:22:41 CMP, serum or plasma 2023 025 [facility] (Lab), [address], [place], [address], 07/31/2024 21:22:47 CBC 2023 025 [facility] (Lab), [address], [place], [address], 07/31/2024 21:17:25 HbA1c (hemoglo bin A1c), blood 2023 024 [email or web address] In-Office Order, Internal Use Only DO Not Attach Compendium DO Not Attach Compendium, Do Not Delete/merge, [id number] 06/09/2024 10:16:34 microalb umin/cre atinine, mass ratio, urine 2023 024 SCRANTON [facility], [address], [facility] [address], [address], 06/10/2024 11:17:12 Referral neurolog ist referral 2023 024 [email or web address] [facility], [address] [place] [facility], [facility] [address], [address], 09/07/2024 15:38:30 hematolo gist referral 2023 024 [email or web address] Fortune MD, [address] [facility], [address], 05/26/2024 07:57:57 Procedures lexiscan cardioli te stress test (PROC) [id number] [facility] Central Scheduling, [address] [place], [address], 07/16/2024 07:22:17 upper endoscop y procedur e (EGD) (PROC) 2023 024 [facility] (Surgery Sched), [address] [place], [address], 05/05/2024 14:26:45 colonosc opy procedur e (PROC) - Is patient on blood thinners ?: NPacemak er or defibril lator?: NPrep (Colonos copy Procedur e): PEG 3350, Go Lytely, Colyte or Gavalyte G, dependin g on insuranc e coverage If patient has had coronary / vascular stent, provide date: NoIf patient has had heart attack or stroke, provide date: NoHas patient ever had problems with anesthes ia or sedation ?: NoHas patient had problems with opening mouth or breathin g tubes?: NoDoes patient use a wheelcha ir?: N 2023 [facility] (Surgery Sched), [address] [place], [address], 05/05/2024 14:24:59 Surgeries None recorded . Imaging MRI, brain, w/o contrast [address] Scheduling, [place], [address], 08/28/2024 07:44:10 electrom yogram + nerve conducti on study - BILATERA L UPPER EXTREMIT IES [address] Scheduling, [place], [address], 05/20/2024 08:17:50 Medication Orders rosuvast atin 20 mg tablet [id number] [facility] [address], [address], [place], [address], 06/17/2024 17:17:25 duloxeti ne 30 mg capsule, delayed release 2023 [facility] [address], [address], [place], [address], 06/09/2024 10:27:33 Farxiga 10 mg tablet 2023 [facility] [address], [address], [place], [address], 06/09/2024 10:28:46 Dulcolax (bisacod yl) 5 mg tablet,d elayed release 2023 [facility] [address], [address], [place], [address], 05/05/2024 14:13:55 Miralax 17 gram/dos e oral powder 2023 [facility] [address], [address], [place], [address], 05/05/2024 14:13:55 Patient TargetsNo targets recorded. Patient Instructions Encounter Date Encounter Id Patient Instructions Last Modified By Organization Details Last Modified Time 05/05/2024 [id number] RL About Your Colonoscopy 1 Day Prep [email or web address] Not available 05/05/2024 14:13:47 Reason for Referral Referring Physician: Malika Campbell, Family Medicine, Encounter Date: 05/08/2024 Neurologist Referral for Epi lepsy concern for absence seizures vs other seizure activity vs TIA vs CVA Referring Physician: Rina Goldman, Family Medicine, Encounter Date: 07/13/2024 Results Created Date Observation Date Name Description Value Unit Range Abnormal Flag Note LastModifiedBy Organization Detail LastModifiedTime 04/07/20 24 04/09/2024 COMP. METAB OLIC PANEL (14) glucose 178 mg/dL 70-99 above high normal Not Available [facility] [address] [place] [address], [address], 04/09/2024 21:07:57 04/07/20 24 04/09/2024 COMP. METAB OLIC PANEL (14) BUN 19 mg/dL 6-24 Not Available [facility] [address] [place] [address], [address], 04/09/2024 21:07:57 04/07/20 24 04/09/2024 COMP. METAB OLIC PANEL (14) creatinine 1.37 mg/dL 0.76-1 .27 above high normal Not Available [facility] [address] [place] [address], [address], 04/09/2024 21:07:57 04/07/20 24 04/09/2024 COMP. METAB OLIC PANEL (14) eGFR 45 >=60 below low normal Units for eGFR value s are mL/mi n/1.7 3 The eGFR Calcu latio n has not been valid ated for patie nts under the age of 18. If test resul ts are displ ayed for a patie nt under the age of 18, disre génesis that value . Not Available [facility] [address] [place] [address], [address], 04/09/2024 21:07:57 04/07/20 24 04/09/2024 COMP. METAB OLIC PANEL (14) BUN/creatini ne ratio 14 9-23 Not Available [facility] [address] [place] [address], [address], 04/09/2024 21:07:57 04/07/20 24 04/09/2024 COMP. METAB OLIC PANEL (14) sodium 131 mmol/ L 134-14 4 below low normal Not Available [facility] [address] [place] [address], [address], 04/09/2024 21:07:57 04/07/20 24 04/09/2024 COMP. METAB OLIC PANEL (14) potassium 4.4 mmol/ L 3.5-5. 2 Not Available [facility] [address] [place], [address], 04/09/2024 21:07:57 04/07/20 24 04/09/2024 COMP. METAB OLIC PANEL (14) chloride 94 mmol/ L 96-106 below low normal Not Available [facility] [address] [place], [address], 04/09/2024 21:07:57 04/07/20 24 04/09/2024 COMP. METAB OLIC PANEL (14) carbon dioxide, total 27 mmol/ L 20-29 Not Available [facility] [address] [place], [address], 04/09/2024 21:07:57 04/07/20 24 04/09/2024 COMP. METAB OLIC PANEL (14) calcium 10.1 mg/dL 8.7-10 .2 Not Available [facility] [address] [place], [address], 04/09/2024 21:07:57 04/07/20 24 04/09/2024 COMP. METAB OLIC PANEL (14) protein, total 7.0 g/dL 6.0-8. 5 Not Available [facility] [address] [place], [address], 04/09/2024 21:07:57 04/07/20 24 04/09/2024 COMP. METAB OLIC PANEL (14) albumin 3.9 g/dL 3.8-4. 9 Not Available [facility] [address] [place], [address], 04/09/2024 21:07:57 04/07/20 24 04/09/2024 COMP. METAB OLIC PANEL (14) globulin, total 3.1 g/dL 1.5-4. 5 Not Available [facility] [address] [place] [address], [address], 04/09/2024 21:07:57 04/07/20 24 04/09/2024 COMP. METAB OLIC PANEL (14) A/G ratio 1.0 1.2-2. 2 below low normal Not Available [facility] [address] [place] [address], [address], 04/09/2024 21:07:57 04/07/20 24 04/09/2024 COMP. METAB OLIC PANEL (14) bilirubin, total 0.2 mg/dL 0.0-1. 2 Not Available [facility] [address] [place] [address], [address], 04/09/2024 21:07:57 04/07/20 24 04/09/2024 COMP. METAB OLIC PANEL (14) alkaline phosphatase 100 IU/L 44-121 Not Available [facility] Department [address] [place], [address], 04/09/2024 21:07:57 04/07/20 24 04/09/2024 COMP. METAB OLIC PANEL (14) AST (SGOT) 12 IU/L 0-40 Not Available [facility] [address] [place] [address], [address], 04/09/2024 21:07:57 04/07/20 24 04/09/2024 COMP. METAB OLIC PANEL (14) ALT (SGPT) 6 IU/L 0-32 Not Available [facility] [address] [place] [address], [address], 04/09/2024 21:07:57 04/07/20 24 04/09/2024 CBC WITH DIFFE RENTI AL/PL ATELE T WBC 7.5 x10e3 /uL 3.4-10 .8 Not Available [facility] [address] [place] [address], [address], 04/09/2024 21:07:58 04/07/20 24 04/09/2024 CBC WITH DIFFE RENTI AL/PL ATELE T RBC 3.35 x10e6 /uL 3.77-5 .28 below low normal Not Available [facility] [address] [place], [address], 04/09/2024 21:07:58 04/07/20 24 04/09/2024 CBC WITH DIFFE RENTI AL/PL ATELE T hemoglobin 9.5 g/dL 11.1-1 5.9 below low normal Not Available [facility] [address] [place], [address], 04/09/2024 21:07:58 04/07/2004/09/2024 CBC WITH DIFFE RENTI AL/PL ATELE T hematocrit 29.7 % 34.0-4 6.6 below low normal Not Available [facility] [address] [place] [address], [address], 04/09/2024 21:07:58 04/07/20 24 04/09/2024 CBC WITH DIFFE RENTI AL/PL ATELE T MCV 89 fL 79-97 Not Available [facility] [address] [place] [address], [address], 04/09/2024 21:07:58 04/07/20 24 04/09/2024 CBC WITH DIFFE RENTI AL/PL ATELE T MCH 28.4 pg 26.6-3 3.0 Not Available [facility] [address] [place] [address], [address], 04/09/2024 21:07:58 04/07/20 24 04/09/2024 CBC WITH DIFFE RENTI AL/PL ATELE T MCHC 32.0 g/dL 31.5-3 5.7 Not Available [facility] [address] [place] [address], [address], 04/09/2024 21:07:58 04/07/20 24 04/09/2024 CBC WITH DIFFE RENTI AL/PL ATELE T RDW 12.8 % 11.5-1 4.5 Not Available [facility] [address] [place], [address], 04/09/2024 21:07:58 04/07/2004/09/2024 CBC WITH DIFFE RENTI AL/PL ATELE T platelets 345 x10e3 /uL 150-45 0 Not Available [facility] [address] [place], [address], 04/09/2024 21:07:58 04/07/2004/09/2024 CBC WITH DIFFE RENTI AL/PL ATELE T neutrophils 62 % notest b. Not Available [facility] [address] [place] [address], [address], 04/09/2024 21:07:58 04/07/20 24 04/09/2024 CBC WITH DIFFE RENTI AL/PL ATELE T lymphs 30 % notest b. Not Available [facility] [address] [place] [address], [address], 04/09/2024 21:07:58 04/07/20 24 04/09/2024 CBC WITH DIFFE RENTI AL/PL ATELE T monocytes 6 % notest b. Not Available [facility] [address] [place] [address], [address], 04/09/2024 21:07:58 04/07/2004/09/2024 CBC WITH DIFFE RENTI AL/PL ATELE T eos 2 % notest b. Not Available [facility] [address] [place], [address], 04/09/2024 21:07:58 04/07/2004/09/2024 CBC WITH DIFFE RENTI AL/PL ATELE T basos 0 % notest b. Not Available [facility] [address] [place] [address], [address], 04/09/2024 21:07:58 04/07/20 24 04/09/2024 CBC WITH DIFFE RENTI AL/PL ATELE T neutrophils (absolute) 4.7 x10e3 /uL 1.4-7. 0 Not Available [facility] [address] [place], [address], 04/09/2024 21:07:58 04/07/20 24 04/09/2024 CBC WITH DIFFE RENTI AL/PL ATELE T lymphs (absolute) 2.2 x10e3 /uL 0.7-3. 1 Not Available [facility] [address] [place], [address], 04/09/2024 21:07:58 04/07/2004/09/2024 CBC WITH DIFFE RENTI AL/PL ATELE T monocytes(ab solute) 0.5 x10e3 /uL 0.1-0. 9 Not Available [facility] [address] [place], [address], 04/09/2024 21:07:58 04/07/20 24 04/09/2024 CBC WITH DIFFE RENTI AL/PL ATELE T eos (absolute) 0.1 x10e3 /uL 0.0-0. 4 Not Available [facility] [address] [place], [address], 04/09/2024 21:07:58 04/07/20 24 04/09/2024 CBC WITH DIFFE RENTI AL/PL ATELE T baso (absolute) 0.0 x10e3 /uL 0.0-0. 2 Not Available [facility] [address] [place], [address], 04/09/2024 21:07:58 04/07/2004/09/2024 CBC WITH DIFFE RENTI AL/PL ATELE T immature granulocytes 0.3 % notest b. Not Available [facility] [address] [place], [address], 04/09/2024 21:07:58 04/07/20 24 04/09/2024 CBC WITH DIFFE RENTI AL/PL ATELE T immature grans (abs) 0.0 x10e3 /uL 0.0-0. 1 Not Available [facility] [address] [place], [address], 04/09/2024 21:07:58 04/07/20 24 04/09/2024 CBC WITH DIFFE RENTI AL/PL ATELE T NRBC 0 % 0-0 Not Available [facility] [address] [place], [address], 04/09/2024 21:07:58 04/07/20 24 04/10/2024 IRON AND TIBC iron bind.cap.(TI BC) 263 ug/dL 250-45 0 Not Available [facility] ([facility]) [address] [place], [address], 04/10/2024 11:16:27 04/07/20 24 04/10/2024 IRON AND TIBC UIBC 213 ug/dL 131-42 5 Not Available [facility] ([facility]) [address] [place], [address], 04/10/2024 11:16:27 04/07/20 24 04/10/2024 IRON AND TIBC iron 50 ug/dL 27-159 Not Available [facility] ([facility]) [address] [place], [address], 04/10/2024 11:16:27 04/07/20 24 04/10/2024 IRON AND TIBC iron saturation 19 % 15-55 Not Available [facility] ([facility]) [address] [place], [address], 04/10/2024 11:16:27 04/07/20 24 04/10/2024 TONY TIN ferritin 359 NG/mL 15-150 above high normal Not Available [facility] ([facility]) [address] [place], [address], 04/10/2024 11:16:28 05/19/2005/19/2024 CREAT INE KINAS E creatine kinase 44 U/L 32-182 normal Not Available [facility] (Lab) [address], [place], [address], 05/19/2024 15:26:17 05/19/20 24 05/19/2024 COMPR EHENS THOMPSON METAB OLIC PANEL sodium 137 mmol/ L 134-14 4 normal Not Available [facility] (Lab) [address] [place], [address], 05/19/2024 15:36:39 05/19/2005/19/2024 COMPR EHENS THOMPSON METAB OLIC PANEL potassium 4.4 mmol/ L 3.5-5. 2 normal Not Available [facility] ([facility]) [address] [place], [address], 05/19/2024 15:36:39 05/19/2005/19/2024 COMPR EHENS THOMPSON METAB OLIC PANEL chloride 99 mmol/ L 96-106 normal Not Available [facility] (Lab) [address] [place], [address], 05/19/2024 15:36:39 05/19/20 24 05/19/2024 COMPR EHENS THOMPSON METAB OLIC PANEL carbon dioxide 27 mmol/ L 20-29 normal Not Available [facility] ([facility]) [address] [place], [address], 05/19/2024 15:36:39 05/19/20 24 05/19/2024 COMPR EHENS THOMPSON METAB OLIC PANEL anion gap 15.0 mmol/ L Not Available [facility] (Lab) [address] [place], [address], 05/19/2024 15:36:39 05/19/20 24 05/19/2024 COMPR EHENS THOMPSON METAB OLIC PANEL blood urea nitrogen 29 mg/dL 6-24 high Not Available [facility] (Lab) [address], [place], [address], 05/19/2024 15:36:39 05/19/2005/19/2024 COMPR EHENS THOMPSON METAB OLIC PANEL creatinine 1.64 mg/dL 0.76-1 .27 high Not Available [facility] (Lab) [address], [place], [address], 05/19/2024 15:36:39 05/19/2005/19/2024 COMPR EHENS THOMPSON METAB OLIC PANEL glomerular filtration rate 36 mL/mi n/1 Not Available [facility] (Lab) [address], [place], [address], 05/19/2024 15:36:39 05/19/2005/19/2024 COMPR EHENS THOMPSON METAB OLIC PANEL BUN creatinine ratio 18 9-23 normal Not Available [facility] (Lab) [address], [place], [address], 05/19/2024 15:36:39 05/19/20 24 05/19/2024 COMPR EHENS THOMPSON METAB OLIC PANEL glucose 130 mg/dL 70-99 high Not Available [facility] (Lab) [address], [place], [address], 05/19/2024 15:36:39 05/19/20 24 05/19/2024 COMPR EHENS THOMPSON METAB OLIC PANEL osmolality calculated 281 275-29 5 normal Not Available [facility] (Lab) [address] [place], [address], 05/19/2024 15:36:39 05/19/20 24 05/19/2024 COMPR EHENS THOMPSON METAB OLIC PANEL calcium 10.3 mg/dL 8.7-10 .2 high Not Available [facility] (Lab) [address] [place], [address], 05/19/2024 15:36:39 05/19/20 24 05/19/2024 COMPR EHENS THOMPSON METAB OLIC PANEL bilirubin total 0.2 mg/dL 0.0-1. 2 normal Not Available [facility] (Lab) [address] [place], [address], 05/19/2024 15:36:39 05/19/20 24 05/19/2024 COMPR EHENS THOMPSON METAB OLIC PANEL aspartate amino transferase 11 IU/L 0-40 normal Not Available [facility] ([facility]) [address] [place], [address], 05/19/2024 15:36:39 05/19/20 24 05/19/2024 COMPR EHENS THOMPSON METAB OLIC PANEL alanine aminotransfe rase 7 IU/L 0-32 normal Not Available [facility] (Lab) [address], [place], [address], 05/19/2024 15:36:39 05/19/20 24 05/19/2024 COMPR EHENS THOMPSON METAB OLIC PANEL total protein 7.8 g/dL 6.0-8. 5 normal Not Available [facility] (Lab) [address] [place], [address], 05/19/2024 15:36:39 05/19/20 24 05/19/2024 COMPR EHENS THOMPSON METAB OLIC PANEL albumin level 4.2 g/dL 3.8-4. 9 normal Not Available [facility] (Lab) [address] [place], [address], 05/19/2024 15:36:39 05/19/20 24 05/19/2024 COMPR EHENS THOMPSON METAB OLIC PANEL globulin 3.6 g/dL 1.5-4. 5 normal Not Available [facility] (Lab) [address] [place], [address], 05/19/2024 15:36:39 05/19/20 24 05/19/2024 COMPR EHENS THOMPSON METAB OLIC PANEL albumin globulin ratio 1.0 1.2-2. 2 low Not Available [facility] (Lab) [address] [place], [address], 05/19/2024 15:36:39 05/19/2005/19/2024 COMPR EHENS THOMPSON METAB OLIC PANEL alkaline phosphatase 78 IU/L 44-121 normal Not Available [facility] ([facility]) [address] [place], [address], 05/19/2024 15:36:39 05/19/2005/19/2024 LIPID PANEL triglyceride s 124 mg/dL 0-149 normal Not Available [facility] (Lab) [address] [place], [address], 05/19/2024 15:36:39 05/19/2005/19/2024 LIPID PANEL cholesterol 190 mg/dL 100-19 9 normal Not Available [facility] (Lab) [address] [place], [address], 05/19/2024 15:36:39 05/19/2005/19/2024 LIPID PANEL LDL cholesterol 120 mg/dL 0-99 high Not Available [facility] ([facility]) [address] [place], [address], 05/19/2024 15:36:39 05/19/20 24 05/19/2024 LIPID PANEL VLDL cholesterol (calc) 25 mg/dL 5-40 normal Not Available [facility] (Lab) [address] [place], [address], 05/19/2024 15:36:39 05/19/20 24 05/19/2024 LIPID PANEL HDL cholesterol 52 mg/dL 40-999 normal Not Available [facility] ([facility]) [address] [place], [address], 05/19/2024 15:36:39 05/19/20 24 05/19/2024 LIPID PANEL LDL HDL ratio 2.3 0-3.2 normal Not Available [facility] (Lab) [address] [place], [address], 05/19/2024 15:36:39 05/19/20 24 05/19/2024 LIPID PANEL chol HDL ratio 4.0 mg/dL 0-4.4 normal Not Available [facility] (Lab) [address] [place], [address], 05/19/2024 15:36:39 06/09/20 24 06/10/2024 ALBUM IN/CR EAT RATIO , RANDO M UR creatinine, urine 91.0 mg/dL notest ab. Not Available [facility] ([facility]) [address] [facility] [address] [facility], [place], [address], 06/10/2024 11:17:12 06/09/20 24 06/10/2024 ALBUM IN/CR EAT RATIO , RANDO M UR albumin, urine 11.1 ug/mL notest ab. Not Available [facility] ([facility]) [address] [facility] [facility], [place], [address], 06/10/2024 11:17:12 06/09/20 24 06/10/2024 ALBUM IN/CR EAT RATIO , RANDO M UR alb/creat ratio 12 mg/g_ creat 0-29 Caterina l: 0 - 29 Moder ately incre ased: 30 - 300 Sever perla incre ased: >300 Not Available [facility] ([facility]) [address] [facility] [address], [place], [address], 06/10/2024 11:17:12 06/09/20 24 06/09/2024 HbA1c (hemo globi n A1c), blood HbA1c 6.4% Not Available In-Office Order Internal Use Only DO Not Attach Compendium DO Not Attach Compendium, Do Not Delete/merge, [id number] 06/09/2024 10:15:23 06/19/20 24 06/19/2024 COMPL ETE BLOOD COUNT NO DIFF white blood count 5.8 x10e3 /uL 3.4-10 .8 normal Not Available [facility] (Lab) [address], [place], [address], 06/19/2024 14:26:45 06/19/20 24 06/19/2024 COMPL ETE BLOOD COUNT NO DIFF red blood count 4.14 x10e6 /uL 3.77-5 .28 normal Not Available [facility] (Lab) [address], [place], [address], 06/19/2024 14:26:45 06/19/20 24 06/19/2024 COMPL ETE BLOOD COUNT NO DIFF hemoglobin 11.9 g/dL 11.1-1 5.9 normal Not Available [facility] (Lab) [address], [place], [address], 06/19/2024 14:26:45 06/19/20 24 06/19/2024 COMPL ETE BLOOD COUNT NO DIFF hematocrit 35.6 % 34.0-4 6.6 normal Not Available [facility] (Lab) [address], [place], [address], 06/19/2024 14:26:45 06/19/20 24 06/19/2024 COMPL ETE BLOOD COUNT NO DIFF mean corpuscular volume 86 fL 79-97 normal Not Available [facility] [address], [place], [address], 06/19/2024 14:26:45 06/19/20 24 06/19/2024 COMPL ETE BLOOD COUNT NO DIFF mean corpuscular hemoglobin 28.7 pg 26.6-3 3.0 normal Not Available [facility] (Lab) [address], [place], [address], 06/19/2024 14:26:45 06/19/20 24 06/19/2024 COMPL ETE BLOOD COUNT NO DIFF mean corpuscular HGB conc 33.4 g/dL 31.5-3 5.7 normal Not Available [facility] ([facility]) [address], [place], [address], 06/19/2024 14:26:45 06/19/20 24 06/19/2024 COMPL ETE BLOOD COUNT NO DIFF red cell distribution width 12.5 % 11.5-1 4.5 normal Not Available [facility] (Lab) [address] [place], [address], 06/19/2024 14:26:45 06/19/20 24 06/19/2024 COMPL ETE BLOOD COUNT NO DIFF platelet count 266 x10e3 /uL 150-45 0 normal Not Available [facility] (Lab) [address] [place], [address], 06/19/2024 14:26:45 06/19/20 24 06/19/2024 COMPL ETE BLOOD COUNT NO DIFF mean platelet volume 8.5 fL 8.9-12 .7 low Not Available [facility] (Lab) [address] [place], [address], 06/19/2024 14:26:45 06/19/20 24 06/19/2024 COMPL ETE BLOOD COUNT NO DIFF nucleated red blood cells auto 0 % 0-0 normal Not Available [facility] (Lab) [address] [place], [address], 06/19/2024 14:26:45 06/19/20 24 06/19/2024 CREAT INE KINAS E creatine kinase 54 U/L 32-182 normal Not Available [facility] (Lab) [address] [place], [address], 06/19/2024 15:02:50 06/19/20 24 06/19/2024 COMPR EHENS THOMPSON METAB OLIC PANEL sodium 141 mmol/ L 134-14 4 normal Not Available [facility] (Lab) [address] [place], [address], 06/19/2024 16:35:27 06/19/20 24 06/19/2024 COMPR EHENS THOMPSON METAB OLIC PANEL potassium 3.9 mmol/ L 3.5-5. 2 Not Available [facility] (Lab) [address] [place], [address], 06/19/2024 16:35:27 06/19/20 24 06/19/2024 COMPR EHENS THOMPSON METAB OLIC PANEL chloride 103 mmol/ L 96-106 normal Not Available [facility] (Lab) [address] [place], [address], 06/19/2024 16:35:27 06/19/20 24 06/19/2024 COMPR EHENS THOMPSON METAB OLIC PANEL carbon dioxide 28 mmol/ L 20-29 normal Not Available [facility] (Lab) [address] [place], [address], 06/19/2024 16:35:27 06/19/20 24 06/19/2024 COMPR EHENS THOMPSON METAB OLIC PANEL anion gap 14.0 mmol/ L Not Available [facility] (Lab) [address], [place], [address], 06/19/2024 16:35:27 06/19/20 24 06/19/2024 COMPR EHENS THOMPSON METAB OLIC PANEL blood urea nitrogen 18 mg/dL 6-24 normal Not Available [facility] [address] [place], [address], 06/19/2024 16:35:27 06/19/20 24 06/19/2024 COMPR EHENS THOMPSON METAB OLIC PANEL creatinine 1.22 mg/dL 0.76-1 .27 normal Not Available [facility] (Lab) [address], [place], [address], 06/19/2024 16:35:27 06/19/20 24 06/19/2024 COMPR EHENS THOMPSON METAB OLIC PANEL glomerular filtration rate 51 mL/mi n/1 Not Available [facility] (Lab) [address] [place], [address], 06/19/2024 16:35:27 06/19/20 24 06/19/2024 COMPR EHENS THOMPSON METAB OLIC PANEL BUN creatinine ratio 15 9-23 normal Not Available [facility] [address] [place], [address], 06/19/2024 16:35:27 06/19/20 24 06/19/2024 COMPR EHENS THOMPSON METAB OLIC PANEL glucose 96 mg/dL 70-99 normal Not Available [facility] (Lab) [address] [place], [address], 06/19/2024 16:35:27 06/19/20 24 06/19/2024 COMPR EHENS THOMPSON METAB OLIC PANEL osmolality calculated 283 275-29 5 normal Not Available [facility] (Lab) [address] [place], [address], 06/19/2024 16:35:27 06/19/20 24 06/19/2024 COMPR EHENS THOMPSON METAB OLIC PANEL calcium 10.6 mg/dL 8.7-10 .2 high Not Available [facility] (Lab) [address] [place], [address], 06/19/2024 16:35:27 06/19/20 24 06/19/2024 COMPR EHENS THOMPSON METAB OLIC PANEL bilirubin total 0.3 mg/dL 0.0-1. 2 normal Not Available [facility] (Lab) [address], [place], [address], 06/19/2024 16:35:27 06/19/20 24 06/19/2024 COMPR EHENS THOMPSON METAB OLIC PANEL aspartate amino transferase 15 IU/L 0-40 normal Not Available [facility] [address] [place], [address], 06/19/2024 16:35:27 06/19/20 24 06/19/2024 COMPR EHENS THOMPSON METAB OLIC PANEL alanine aminotransfe rase 14 IU/L 0-32 normal Not Available [facility] ([facility] [address] [place], [address], 06/19/2024 16:35:27 06/19/20 24 06/19/2024 COMPR EHENS THOMPSON METAB OLIC PANEL total protein 8.0 g/dL 6.0-8. 5 normal Not Available [facility]) [address] [place], [address], 06/19/2024 16:35:27 06/19/20 24 06/19/2024 COMPR EHENS THOMPSON METAB OLIC PANEL albumin level 4.4 g/dL 3.8-4. 9 normal Not Available [facility] ([facility]) [address] [place], [address], 06/19/2024 16:35:27 06/19/20 24 06/19/2024 COMPR EHENS THOMPSON METAB OLIC PANEL globulin 3.6 g/dL 1.5-4. 5 normal Not Available [facility] (Lab) [address], [place], [address], 06/19/2024 16:35:27 06/19/20 24 06/19/2024 COMPR EHENS THOMPSON METAB OLIC PANEL albumin globulin ratio 1.0 1.2-2. 2 low Not Available [facility] (Lab) [address], [place], [address], 06/19/2024 16:35:27 06/19/20 24 06/19/2024 COMPR EHENS THOMPSON METAB OLIC PANEL alkaline phosphatase 68 IU/L 44-121 normal Not Available [facility] (Lab) [address] [place], [address], 06/19/2024 16:35:27 06/19/20 24 06/19/2024 LIPID PANEL triglyceride s 121 mg/dL 0-149 normal Not Available [facility] ([facility]) [address] [place], [address], 06/19/2024 16:35:29 06/19/20 24 06/19/2024 LIPID PANEL cholesterol 145 mg/dL 100-19 9 normal Not Available [facility] (Lab) [address] [place], [address], 06/19/2024 16:35:29 06/19/20 24 06/19/2024 LIPID PANEL LDL cholesterol 73 mg/dL 0-99 normal Not Available [facility] (Lab) [address] [place], [address], 06/19/2024 16:35:29 06/19/20 24 06/19/2024 LIPID PANEL VLDL cholesterol (calc) 24 mg/dL 5-40 normal Not Available [facility] ([facility]) [address], [place], [address], 06/19/2024 16:35:29 06/19/20 24 06/19/2024 LIPID PANEL HDL cholesterol 55 mg/dL 40-999 normal Not Available [facility] (Lab) [address], [place], [address], 06/19/2024 16:35:29 06/19/20 24 06/19/2024 LIPID PANEL LDL HDL ratio 1.3 0-3.2 normal Not Available [facility] ([facility]) [address], [place], [address], 06/19/2024 16:35:29 06/19/20 24 06/19/2024 LIPID PANEL chol HDL ratio 3.0 mg/dL 0-4.4 normal Not Available [facility] ([facility]) [address], [place], [address], 06/19/2024 16:35:29 07/13/20 24 07/13/2024 gluco se, finge rstic k, blood Blood Glucose: mg/dl 211 Not Available In-Off ice Order Internal Use Only DO Not Attach Compendium DO Not Attach Compendium, Do Not Delete/merge, [id number] 07/13/2024 14:49:09 07/14/20 24 07/15/2024 COMP. METAB OLIC PANEL (14) glucose 169 mg/dL 70-99 above high normal Not Available [facility] ([facility]) [address] [facility] [facility], [place], [address], 07/16/2024 14:11:40 07/14/20 24 07/15/2024 COMP. METAB OLIC PANEL (14) BUN 25 mg/dL 6-24 above high normal Not Available [facility] ([facility]) [address] [place], [address], 07/16/2024 14:11:40 07/14/20 24 07/15/2024 COMP. METAB OLIC PANEL (14) creatinine 1.56 mg/dL 0.57-1 .00 above high normal Not Available [facility] ([facility]) [address] [facility], [place], [address], 07/16/2024 14:11:40 07/14/20 24 07/15/2024 COMP. METAB OLIC PANEL (14) eGFR 38 mL/mi n/1.7 3 >59 below low normal Not Available [facility] ([facility]) [address] [place], [address], 07/16/2024 14:11:40 07/14/20 24 07/15/2024 COMP. METAB OLIC PANEL (14) BUN/creatini ne ratio 16 9-23 Not Available [facility] ([facility]) [address] [place], [address], 07/16/2024 14:11:40 07/14/20 24 07/15/2024 COMP. METAB OLIC PANEL (14) sodium 141 mmol/ L 134-14 4 Not Available [facility] ([facility]) [address] [place], [address], 07/16/2024 14:11:40 07/14/20 24 07/15/2024 COMP. METAB OLIC PANEL (14) potassium 4.4 mmol/ L 3.5-5. 2 Not Available [facility] ([facility]) [address] [place], [address], 07/16/2024 14:11:40 07/14/20 24 07/15/2024 COMP. METAB OLIC PANEL (14) chloride 104 mmol/ L 96-106 Not Available [facility] ([facility]) [address] [place], [address], 07/16/2024 14:11:40 07/14/20 24 07/15/2024 COMP. METAB OLIC PANEL (14) carbon dioxide, total 25 mmol/ L 20-29 Not Available [facility] ([facility]) [address] [place], [address], 07/16/2024 14:11:40 07/14/20 24 07/15/2024 COMP. METAB OLIC PANEL (14) calcium 10.1 mg/dL 8.7-10 .2 Not Available [facility] ([facility]) [address] [facility] [address], [place], [address], 07/16/2024 14:11:40 07/14/20 24 07/15/2024 COMP. METAB OLIC PANEL (14) protein, total 7.1 g/dL 6.0-8. 5 Not Available [facility] ([facility]) [address] [place] [place], [address], 07/16/2024 14:11:40 07/14/20 24 07/15/2024 COMP. METAB OLIC PANEL (14) albumin 4.4 g/dL 3.8-4. 9 Not Available [facility] ([facility]) [address] [place] [place], [address], 07/16/2024 14:11:40 07/14/20 24 07/15/2024 COMP. METAB OLIC PANEL (14) globulin, total 2.7 g/dL 1.5-4. 5 Not Available [facility] ([facility]) [address] [place], [address], 07/16/2024 14:11:40 07/14/20 24 07/15/2024 COMP. METAB OLIC PANEL (14) bilirubin, total <0.2 mg/dL 0.0-1. 2 Not Available [facility] ([facility]) [address] [facility], [place], [address], 07/16/2024 14:11:40 07/14/20 24 07/15/2024 COMP. METAB OLIC PANEL (14) alkaline phosphatase 66 IU/L 44-121 Not Available [facility] ([facility]) [address] [facility] [address] [facility], [place], [address], 07/16/2024 14:11:40 07/14/20 24 07/15/2024 COMP. METAB OLIC PANEL (14) AST (SGOT) 16 IU/L 0-40 Not Available [facility] ([facility]) [address] [facility] [facility], [place], [address], 07/16/2024 14:11:40 07/14/20 24 07/15/2024 COMP. METAB OLIC PANEL (14) ALT (SGPT) 12 IU/L 0-32 Not Available [facility] ([facility]) [address] [facility], [place], [address], 07/16/2024 14:11:40 07/31/19 25 07/31/2024 COMPL ETE BLOOD COUNT NO DIFF white blood count 7.1 x10e3 /uL 3.4-10 .8 normal Not Available [facility] (Lab) [address] [place], [address], 07/31/2024 21:17:25 07/31/19 25 07/31/2024 COMPL ETE BLOOD COUNT NO DIFF red blood count 3.85 x10e6 /uL 3.77-5 .28 normal Not Available [facility] (Lab) [address], [place], [address], 07/31/2024 21:17:25 07/31/19 25 07/31/2024 COMPL ETE BLOOD COUNT NO DIFF hemoglobin 11.1 g/dL 11.1-1 5.9 normal Not Available [facility] (Lab) [address] [place], [address], 07/31/2024 21:17:25 07/31/19 25 07/31/2024 COMPL ETE BLOOD COUNT NO DIFF hematocrit 34.1 % 34.0-4 6.6 normal Not Available [facility] ([facility]) [address], [place], [address], 07/31/2024 21:17:25 07/31/19 25 07/31/2024 COMPL ETE BLOOD COUNT NO DIFF mean corpuscular volume 89 fL 79-97 normal Not Available [facility] ([facility]) [address], [place], [address], 07/31/2024 21:17:25 07/31/19 25 07/31/2024 COMPL ETE BLOOD COUNT NO DIFF mean corpuscular hemoglobin 28.8 pg 26.6-3 3.0 normal Not Available [facility] (Lab) [address], [place], [address], 07/31/2024 21:17:25 07/31/19 25 07/31/2024 COMPL ETE BLOOD COUNT NO DIFF mean corpuscular HGB conc 32.6 g/dL 31.5-3 5.7 normal Not Available [facility] (Lab) [address], [place], [address], 07/31/2024 21:17:25 07/31/19 25 07/31/2024 COMPL ETE BLOOD COUNT NO DIFF red cell distribution width 12.6 % 11.5-1 4.5 normal Not Available [facility] (Lab) [address] [place], [address], 07/31/2024 21:17:25 07/31/19 25 07/31/2024 COMPL ETE BLOOD COUNT NO DIFF platelet count 259 x10e3 /uL 150-45 0 normal Not Available [facility] (Lab) [address] [place], [address], 07/31/2024 21:17:25 07/31/19 25 07/31/2024 COMPL ETE BLOOD COUNT NO DIFF mean platelet volume 9.7 fL 8.9-12 .7 normal Not Available [facility] ([facility]) [address] [place], [address], 07/31/2024 21:17:25 07/31/19 25 07/31/2024 COMPL ETE BLOOD COUNT NO DIFF nucleated red blood cells auto 0 % 0-0 normal Not Available [facility] ([facility]) [address] [place], [address], 07/31/2024 21:17:25 07/31/19 25 07/31/2024 CREAT INE KINAS E creatine kinase 47 U/L 32-182 normal Not Available [facility] ([facility]) [address], [place], [address], 07/31/2024 21:22:41 07/31/19 25 07/31/2024 COMPR EHENS THOMPSON METAB OLIC PANEL sodium 142 mmol/ L 134-14 4 normal Not Available [facility] ([facility]) [address] [place], [address], 07/31/2024 21:22:47 07/31/19 25 07/31/2024 COMPR EHENS THOMPSON METAB OLIC PANEL potassium 3.4 mmol/ L 3.5-5. 2 low Not Available [facility] ([facility]) [address] [place], [address], 07/31/2024 21:22:47 07/31/19 25 07/31/2024 COMPR EHENS THOMPSON METAB OLIC PANEL chloride 101 mmol/ L 96-106 normal Not Available [facility] ([facility]) [address] [place], [address], 07/31/2024 21:22:47 07/31/19 25 07/31/2024 COMPR EHENS THOMPSON METAB OLIC PANEL carbon dioxide 29 mmol/ L 20-29 normal Not Available [facility] ([facility]) [address] [place], [address], 07/31/2024 21:22:47 07/31/19 25 07/31/2024 COMPR EHENS THOMPSON METAB OLIC PANEL anion gap 15.0 mmol/ L Not Available [facility] (Lab) [address] [place], [address], 07/31/2024 21:22:47 07/31/19 25 07/31/2024 COMPR EHENS THOMPSON METAB OLIC PANEL blood urea nitrogen 29 mg/dL 6-24 high Not Available [facility] ([facility]) [address], [place], [address], 07/31/2024 21:22:47 07/31/19 25 07/31/2024 COMPR EHENS THOMPSON METAB OLIC PANEL creatinine 1.78 mg/dL 0.76-1 .27 high Not Available [facility] (Lab) [address], [place], [address], 07/31/2024 21:22:47 07/31/19 25 07/31/2024 COMPR EHENS THOMPSON METAB OLIC PANEL glomerular filtration rate 33 mL/mi n/1 Not Available [facility] (Lab) [address] [place], [address], 07/31/2024 21:22:47 07/31/19 25 07/31/2024 COMPR EHENS THOMPSON METAB OLIC PANEL BUN creatinine ratio 16 9-23 normal Not Available [facility] ([facility]) [address] [place], [address], 07/31/2024 21:22:47 07/31/19 25 07/31/2024 COMPR EHENS THOMPSON METAB OLIC PANEL glucose 138 mg/dL 70-99 high Not Available [facility] (Lab) [address] [place], [address], 07/31/2024 21:22:47 07/31/19 25 07/31/2024 COMPR EHENS THOMPSON METAB OLIC PANEL osmolality calculated 291 275-29 5 normal Not Available [facility] (Lab) [address] [place], [address], 07/31/2024 21:22:47 07/31/19 25 07/31/2024 COMPR EHENS THOMPSON METAB OLIC PANEL calcium 10.5 mg/dL 8.7-10 .2 high Not Available [facility] (Lab) [address], [place], [address], 07/31/2024 21:22:47 07/31/19 25 07/31/2024 COMPR EHENS THOMPSON METAB OLIC PANEL bilirubin total 0.3 mg/dL 0.0-1. 2 normal Not Available [facility] (Lab) [address], [place], [address], 07/31/2024 21:22:47 07/31/19 25 07/31/2024 COMPR EHENS THOMPSON METAB OLIC PANEL aspartate amino transferase 13 IU/L 0-[address] [facility] (Lab) [address], [place], [address], 07/31/2024 21:22:47 07/31/19 25 07/31/2024 COMPR EHENS THOMPSON METAB OLIC PANEL alanine aminotransfe rase 13 IU/L 0-32 normal Not Available [facility] ([facility]) [address], [place], [address], 07/31/2024 21:22:47 07/31/19 25 07/31/2024 COMPR EHENS THOMPSON METAB OLIC PANEL total protein 7.3 g/dL 6.0-8. 5 normal Not Available [facility] (Lab) [address] [place], [address], 07/31/2024 21:22:47 07/31/19 25 07/31/2024 COMPR EHENS THOMPSON METAB OLIC PANEL albumin level 4.2 g/dL 3.8-4. 9 normal Not Available [facility] (Lab) [address] [place], [address], 07/31/2024 21:22:47 07/31/19 25 07/31/2024 COMPR EHENS THOMPSON METAB OLIC PANEL globulin 3.1 g/dL 1.5-4. 5 normal Not Available [facility] ([facility]) [address] [place], [address], 07/31/2024 21:22:47 07/31/19 25 07/31/2024 COMPR EHENS THOMPSON METAB OLIC PANEL albumin globulin ratio 1.0 1.2-2. 2 low Not Available [facility] (Lab) [address] [place], [address], 07/31/2024 21:22:47 07/31/19 25 07/31/2024 COMPR EHENS THOMPSON METAB OLIC PANEL alkaline phosphatase 68 IU/L 44-121 normal Not Available [facility] (Lab) [address], [place], [address], 07/31/2024 21:22:47 07/31/19 25 07/31/2024 LIPID PANEL triglyceride s 120 mg/dL 0-149 normal Not Available [facility] ([facility]) [address] [place], [address], 07/31/2024 21:22:48 07/31/19 25 07/31/2024 LIPID PANEL cholesterol 153 mg/dL 100-19 9 normal Not Available [facility] (Lab) [address] [place], [address], 07/31/2024 21:22:48 07/31/19 25 07/31/2024 LIPID PANEL LDL cholesterol 80 mg/dL 0-99 normal Not Available [facility] [address] [place], [address], 07/31/2024 21:22:48 07/31/19 25 07/31/2024 LIPID PANEL VLDL cholesterol (calc) 24 mg/dL 5-40 normal Not Available [facility] ([facility]) [address] [place], [address], 07/31/2024 21:22:48 07/31/19 25 07/31/2024 LIPID PANEL HDL cholesterol 45 mg/dL 40-999 normal Not Available [facility] ([facility]) [address] [place], [address], 07/31/2024 21:22:48 07/31/19 25 07/31/2024 LIPID PANEL LDL HDL ratio 1.8 0-3.2 normal Not Available [facility] ([facility]) [address] [place], [address], 07/31/2024 21:22:48 07/31/19 25 07/31/2024 LIPID PANEL chol HDL ratio 3.0 mg/dL 0-4.4 normal Not Available [facility] ([facility]) [address], [place], [address], 07/31/2024 21:22:48 04/22/20 24 04/22/2024 elect rocar diogr am No observ ation record ed. SCRANTON In-Office Order Internal Use Only DO Not Attach Compendium DO Not Attach Compendium, Do Not Delete/merge, [id number] 04/22/2024 16:25:40 04/22/20 elect rocar diogr am No observ ation record ed. [email or web address] Not Available 04/22 16:25:40 05/03/20 24 05/01/2024 CT, coron matti calci um score No observ ation record ed. [facility] [address] [place], [address], 05/05/2024 11:34:43 05/25/20 24 05/25/2024 elect romyo gram + nerve condu ction study No observ ation record ed. [address], [address], 06/09/2024 10:17:43 05/27/20 24 05/25/2024 elect romyo gram + nerve condu ction study No observ ation record ed. [facility] [address] [facility], [place], [address], 05/29/2024 11:00:25 07/23/20 24 07/21/2024 tanya can cardi olite stres s test (PROC ) No observ ation record ed. [facility] [address], [place], [address], 07/23/2024 08:51:54 07/23/20 24 07/21/2024 tanya can cardi olite stres s test (PROC ) No observ ation record ed. [facility] [address], [place], [address], 07/23/2024 08:52:18 09/02/19 25 09/02/2024 MRI, brain , w/o contr ast No observ ation record ed. [facility] [address] [facility], [place], [address], 09/07/2024 15:39:16 Result Notes None recorded. Problems Name Problem SNOMED Code Status Onset Date Resolution Date Notes Provider Name and Address Organization Details Recorded Time Diabetes mellitus 72461360 Active 2023 Brandi Muniz [place] null, [place] - [place] 4 11:30:44 Hypertensive disorder 73235567 Active 2023 Brandi Muniz [place] null, [place] 4 11:30:50 Cerebrovascula r accident 215277429 Active 2023 CAMI WILLARD Attn: Nuris dangelo,[address], [place], [address], [facility] - [facility] 4 19:29:41 Iron deficiency anemia 57098160 Active 2023 CAMI WILLARD Attn: Nuris dangelo,[address], [place], [address], [facility] - [facility] 4 10:01:29 Type 2 diabetes mellitus without complication 229878375 Active 2023 CAMI WILLARD Attn: Nuris dangelo,[address] [facility], [place], [address], [place] - [facility] 4 19:29:34 Mixed hyperlipidemia 437972766 Active 2023 Maxine Carrasco MD Attn: Nuris dangelo,[address] [facility], [place], [address], [place] [facility] 4 16:16:32 Bilateral lower leg edema 210807336 Active 2023 Maxine Carracso MD Attn: Nuris dangelo,[address] [facility], [place], [address], [place] [facility] 4 16:16:33 History of cerebrovascula r accident 905237068 Active 2023 CAMI WILLARD Attn: Nuris dangelo,[address] [facility], [place], [address], [place] [facility] 4 10:25:06 Essential hypertension 80668352 Active 2023 CAMI WILLARD Attn: Nuris dangelo,[address] [facility], [place], [address], [place] [facility] 4 10:28:25 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 CAMI WLILARD Attn: Nuris dangelo,[address] [facility], [place], [address], [place] [facility] 4 11:01:14 Anemia of chronic disease 242075846 Active 2023 CAMI WILLARD Attn: Nuris dangelo,[address] [facility], [place], [address], [place] [facility] 4 10:23:22 Calcification of coronary artery 569155983 Active 2023 Maxine Carrasco MD Attn: Nuris dangelo,[address] [facility], [place], [address], [place] [facility] 4 17:00:34 Anemia 674466817 Active 2023 Maxine Carrasco MD Attn: Nuris dangelo,[address] , [place], [address], [facility] 4 17:04:14 Problem Notes None recorded. Procedures Surgical History Date Name Laterality Status Provider Name and Address Organization Details Recorded Time section completed Brandi Muniz MA [facility] 03/03/2024 11:32:19 Imaging Results Imaging Date Name Status LastModified by Organization Details LastModified Time 04/22/2024 electrocardiogram completed [facility] In-Offi ce Order Internal Use Only DO Not Attach Compendium DO Not Attach Compendium, Do Not Delete/merge, [id number] 04/22/2024 16:25:40 04/22/2024 electrocardiogram completed [email or web address] Informa tion not available 04/22/2024 16:25:40 05/01/2024 CT, coronary calcium score completed [facility] [address] [place], [address], 05/05/2024 11:34:43 05/25/2024 electromyogram + nerve conduction study completed [address], [address], 06/09/2024 10:17:43 05/25/2024 electromyogram + nerve conduction study completed [facility] [address] [place], [address], 05/29/2024 11:00:25 07/21/2024 lexiscan cardiolite stress test (PROC) completed [facility] [address] [place], [address], 07/23/2024 08:51:54 07/21/2024 lexiscan cardiolite stress test (PROC) completed [facility] [address] [place], [address], 07/23/2024 08:52:18 09/02/2024 MRI, brain, w/o contrast completed [address], [place], [address], 09/07/2024 15:39:16 Procedure Notes None recorded. Medical Equipment None Reported. Allergies No known drug allergies Medications Name Sig Start Date Stop Date Status Note LastModified by Organization Details LastModified Time furosemide 40 mg tablet TAKE 1 TABLET BY MOUTH ONCE DAILY active Not Available Not Available No t Available latanoprost 0.005 % eye drops INSTILL 1 DROP IN BOTH EYES ONCE DAILY AT NIGHT TIME active Not Available Not Available No t Available carvedilol 6.25 mg tablet TAKE 1 TABLET BY MOUTH TWICE DAILY WITH MEALS 2024 active Not Available Not Available Not Avai lable hydralazine 25 mg tablet TAKE 1 TABLET BY MOUTH THREE TIMES DAILY DIRECTED 2023 active Not Available Not Available Not Avai lable clopidogrel 75 mg tablet TAKE 1 TABLET BY MOUTH ONCE DAILY active Not Available Not Available No t Available sulfamethox azole 800 mg-trimetho prim 160 mg tablet active Not Available Not Available Not Available aspirin 81 mg tablet,mahad yed release TAKE 1 TABLET BY MOUTH ONCE DAILY active Not Available Not Available No t Available OneTouch Ultra Test strips USE 1 STRIP TO CHECK GLUCOSE THREE TIMES DAILY active Not Available Not Available No t Available brimonidine 0.2 % eye drops active Not Available Not Available Not Available mirtazapine 15 mg tablet TAKE 1 TABLET EVERYDAY DIRECTED FOR 30 DAYS active Not Available Not Available No t Available cefuroxime axetil 500 mg tablet TAKE 1 TABLET BY MOUTH TWICE DAILY FOR 10 DOSES 03/03 completed Not Available Not Available Not Available polyethylen e glycol 3350 17 gram/dose oral powder IN A PITCHER, MIX ENTIRE BOTTLE OF MIRALAX IN ONE 64 OZ BOTTLE OF YELLOW OR GREEN GATORADE. BEGINNING AT 5PM THE EVENING BEFORE COLONOSCO PY, DRINK 1 8OZ GLASS EVERY 15 MINUTES UNTIL COMPLETED . DRINK 4 GLASSES OF WATER AFTER FINISHING MIX. active Not Available Not Available No t Available timolol maleate 0.5 % eye drops INSTILL 1 DROP INTO EACH EYE IN THE MORNING active Not Available Not Available No t Available amoxicillin 875 mg-sophiau m clavulanate 125 mg tablet TAKE 1 TABLET BY MOUTH TWICE DAILY FOR 14 DAYS 03/03 completed Not Available Not Available Not Available Laxative (bisacodyl) 5 mg tablet,mahad yed release At 2:00 PM the day before the colonosco py, take all 4 tablets of Dulcolax by mouth at one time with 8 ounces of water active Not Available Not Available No t Available insulin lispro (U-100) 100 unit/mL subcutaneou s pen INJECT SUBCUTANE OUSLY 3 TIMES DAILY WITH MEALS. FOR BLOOD SUGAR 150-199 = 2 UNITS, 200-249 = 4 UNITS, 250-299 = 6 UNITS, 300-349 = 8 UNITS, 350+ = [address] FOR BLOOD SUGAR >299. active Not Available Not Available No t Available rosuvastati n 10 mg tablet TAKE 1 TABLET BY MOUTH NIGHTLY active Not Available Not Available No t Available rosuvastati n 20 mg tablet Take 1 tablet every day by oral route. active Not Available Not Available No t Available duloxetine 30 mg capsule,del ayed release TAKE 1 CAPSULE BY MOUTH ONCE DAILY IN THE MORNING active Not Available Not Available No t Available Levemir FlexPen 100 unit/mL (3 mL) solution subcutaneou s insulin pen Inject 30 unit(s) every day by subcutane ous route at bedtime for 30 days. active Not Available Not Available No t Available Lantus Solostar U-100 Insulin 100 unit/mL (3 mL) subcutaneou s pen Inject 30 units every day by subcutane ous route at bedtime for 30 days, for diabetes. 05/07 completed Not Available Not Available Not Available Farxiga 10 mg tablet TAKE 1 TABLET BY MOUTH ONCE DAILY IN THE MORNING FOR DIABETES active Not Available Not Available No t Available BD Shyann 2nd Gen Pen Needle 32 gauge x 5/32 2023 active Not Available Not Available Not Avai lable OneTouch Ultra2 Meter USE DIRECTED THREE TIMES DAILY active Not Available Not Available No t Available OneTouch Delica Plus Lancet 33 gauge USE 1 TO CHECK GLUCOSE THREE TIMES DAILY active Not Available Not Available No t Available Baqsimi 3 mg/actuatio n nasal spray USE 1 SPRAY(S) INTO NOSTRIL A ONE TIME DOSE DIRECTED FOR LOW BLOOD SUGAR active Not Available Not Available No t Available insulin glargine-yf gn (U-100) 100 unit/mL (3 mL) subcutaneou s pen Inject by subcutane ous route for 40 days. 2023 active Not Available Not Available Not Avai lable Vitals Date Recorded Body height Body mass index (BMI) Body weight Heart rate Body temperature Systolic blood pressure Diastolic blood pressure Provider Name and Address Organization Details Last Updated DateTime 4 165.1 cm 24.6 kg/m2 57014.5 9 g 92 /min 98.8 [degF] 141 mm[Hg] 82 mm[Hg] Kayla Syed [facility] 4 12:26:26 Date Recorded Body height Body mass index (BMI) Body weight Oxygen saturation Oxygen saturation in Arterial blood by Pulse oximetry Heart rate Respiratory rate Systolic blood pressure Diastolic blood pressure Provider Name and Address Organization Details Last Updated DateTime 4 165.1 cm 24.6 kg/m2 39389.3 7 g 98 % 98 % 80 /min 18 /min 107 mm[Hg] 66 mm[Hg] Brandi Muniz MA [facility] 4 10:05:00 Date Recorded Body height Body mass index (BMI) Body weight Oxygen saturation Oxygen saturation in Arterial blood by Pulse oximetry Heart rate Respiratory rate Systolic blood pressure Diastolic blood pressure Provider Name and Address Organization Details Last Updated DateTime 4 165.1 cm 24.3 kg/m2 15548.4 9 g 100 % 100 % 99 /min 18 /min 95 mm[Hg] 62 mm[Hg] Terri Rich MA [facility] 4 10:11:48 Date Recorded Body height Body mass index (BMI) Body weight Heart rate Oxygen saturation Oxygen saturation in Arterial blood by Pulse oximetry Systolic blood pressure Diastolic blood pressure Provider Name and Address Organization Details Last Updated DateTime 4 165.1 cm 23.8 kg/m2 98441.7 1 g 95 /min 98 % 98 % 102 mm[Hg] 60 mm[Hg] Lili Nicole MA [facility] 4 16:25:17 Date Recorded Body height Body mass index (BMI) Body weight Oxygen saturation Oxygen saturation in Arterial blood by Pulse oximetry Heart rate Respiratory rate Body temperature Systolic blood pressure Diastolic blood pressure Provider Name and Address Organization Details Last Updated DateTime 165.1 cm 23.8 kg/m2 86876.1 1 g 98 % 98 % 94 /min 18 /min 98.2 [degF] 106 mm[Hg] 65 mm[Hg] Lolly Mares MA [place] [facility] 14:22:58 Social History Question Answer Notes LastModified by Organizat ion Details LastModified Time Tobacco Smoking Status Never Smoker Brandi Muniz [place], [place] - [facility] 03/03/2024 11:32:12 Do You Have An Advance Directive? No Information not available 05/05/2024 What Is Your Level Of Alcohol Consumption? None Information not available 07/13/2024 What Is Your Level Of Caffeine Consumption? Occasional Information not available 07/13/2024 In The 14 Days Before Symptom Onset, Have You Had Close Contact With A Laboratory-confir med COVID-19 While That Case Was Ill? No Information not available 05/05/2024 In The 14 Days Before Symptom Onset, Have You Had Close Contact With A Person Who Is Under Investigation For COVID-19 While That Person Was Ill? No Information not available 05/05/2024 Have You Been To An Area Known To Be High Risk For COVID-19? No Information not available 05/05/2024 Are You Currently Employed? No Information not available 05/05/2024 What Type Of Diet Are You Following? REGULAR Information not available 05/05/2024 Do You Or Have You Ever Used E-cigarettes Or Vape? Never Used Electronic Cigarettes Information not available 07/13/2024 What Is The Highest Grade Or Level Of School You Have Completed Or The Highest Degree You Have Received? [id number] Information not available 05/05/2024 Do You Have A Medical Power Of Section Gang Worker? No Information not available 05/05/2024 What Was The Date Of Your Most Recent Tobacco Screening? 06/17/2024 Information not available 06/17/2024 Do You Have Smoke And Carbon Monoxide Detectors In Your Home? Yes Information not available 05/05/2024 Are You Passively Exposed To Smoke? No Information no t available 05/05/2024 Do You Or Have You Ever Used Smokeless Tobacco? Never Used Smokeless Tobacco Information not available 07/13/2024 Do You Use Any Illicit Or Recreational Drugs? No Information not available 07/13/2024 Has Tobacco Cessation Counseling Been Provided? Yes [email or web address] Information not available 03/03/2024 On What Date Was Tobacco Cessation Counseling Provided? 06/17/2024 Information not available 06/17/2024 Do You Or Have You Ever Used Any Other Forms Of Tobacco Or Nicotine? No Information not available 07/13/2024 Sex: Female Functional Status Question Answer Note LastModified by Organizat ion Details LastModified Time What is your exercise level? Occasional Information not available 05/05/2024 Mental Status None recorded. Family History Relationship Description Onset Age of this Age Resolved Age Notes LastModified by Organization Details LastModified Time Father No current problems or disability [email or web address] Not available 06/28 14:26:23 Mother No current problems or disability [email or web address] Not available 06/28 14:26:23 Medical History Condition Response Diabetes Y High Blood Pressure Y Stroke Y High Cholesterol Y Gynecological History Statement/Question Response Date of Last Pap Smear Date of Last Mammogram Age at First Child 23 Obstetrics History GPAL:G 3 P 0 0 0 3 Type Value Living 3 Total 3 Past Encounters Encounter ID Performer Location Encounter Start Date Encounter Closed Date Diagnosis/Indication Diagnosis SNOMED-CT Code Diagnosis ICD10 Code Diagnosis Note [id number] CAMI WILLARD [facility] [address] [place] [address] 03/03/2024 11:22:07 03/03/2024 12:03:53 Type 2 diabetes mellitus without complication 814461308 E11.9 a1c today 7.8[place] insulin [place] how much insulin or BS numbers, son does all of it for itencour ed to bring BS log at f/u appt in 1 mo Long-term drug therapy 746902598 Z79.899 routine labs Hospital i npatient stay within past 30 days 5288718976 106 Z76.89 Admitted to [facility] 12/04/23 to 12/26/23DKA : sugar 800 - resolved, discharged w/ lispro SSI and lantus 38 unitsSepsi s 2/2 UTI with bilateral pyelonephr itis w/ DANAY - discharged w/ 14 days of augmentinC [facility] - continue plavix, aspirin, and statinHypo tension - resolvedHy pertension - discharged w/ hydralazin etachycard ia - discharged w/ carvedilol carotid artery stenosis - f/u w/ outpatient vascular surgerylef t atrial enlargemen t per TTE and EF nlwill discuss referrals at f/u visit Depression screening 171 222453 Z13.31 PHQ 0 History of cerebrovascular accident 949983458 Z86.73 per patient, mini stroke on L sidedeclin es deficitsgo ing to PT once a week [id number] Terri Rich MA [facility] [address] [place] [address] 03/06/2024 12:34:59 03/06/2024 14:23:56 [id number] Terri Rich MA [facility] [address] [place] [address] 03/17/2024 11:18:59 03/17/2024 11:27:07 Adult health examination 015725420 Z00.00 [id number] CAMI WILLARD [facility] [address] [place] [address] 04/07/2024 09:38:19 04/07/2024 10:25:56 Iron deficiency anemia 06135277 D50.9 per admission- anemia was secondary to sepsis and DANAY, GI bleed ruled outsent to GI on 03/18/24- hgb 9, iron sat 14, ferritin 541pt has been taking 65 mg iron every other dayre-chec k levels today- pt has stores of iron and iron sats slightly low, not as concerned for LANEY, need to r/o other causes of anemia Type 2 eboni betes mellitus without complication 964989880 E11.9 04/07/24: avg BS before bed 300only giving herself 10 units LA at bedtimenee ds test stripsrec' d pt increase LA insulin to 30 units before bed, add agustin 10, advised pt of ADRf/u in 1 mo with BS log Last A1C: Fasting BG range: Current Therapy: Statin: rosu 40 MICHAEL/ARB: NONE Foot Exam: Microalbum in: Pneumovax 23: DM eye exam: Pt was counseled on low carbohydra te diet to better manage diabetes. We went discussed pt's diet at length and I made specific dietary recommenda tions. I also encouraged regular exercise of 30-60 minutes most days of the week. Pt was encouraged to get yearly diabetic eye exams as well. 03/03/24: a1c today 7.8has insulin LA and [place] how much insulin or BS numbers, [facility] to bring BS log at f/u appt in 1 mo Depression screening 171 723722 Z13.31 PHQ 0 Left atria l enlargement 2995249717 9109 I51.7 per [facility] admissiona cute on chronic diastolic CHFrefer to cardio Serum crea tinine above reference range 632200235 R79.89 03/03/24: Cr 1.52, eGFR 40recheck today Screening for malignant neoplasm of breast 022071936 Z12.39 pt declined [id number] Terri Rich MA [facility] [address] [place] [address] 04/09/2024 12:28:41 04/09/2024 14:07:03 [id number] Maxine Carrasco MD [facility] [place] [facility] [address] [place] [address] 04/22/2024 15:15:25 04/27/2024 10:29:21 Cardiomegaly 0507367 I51.7 Essential hypertension 23656473 I10 History of cerebrovascular accident 486403202 Z86.73 Mixed hyperlipidemia 267 988108 E78.2 Bilateral lower leg edema 100554418 R60.0 Type 2 eboni betes mellitus without complication 155806353 E11.9 [id number] MERVAT ALMANZA [facility] [address] [place] [address] 05/05/2024 12:17:07 05/06/2024 08:17:42 Anemia 447550791 D64.9 on PO iron, Hgb remains around 9-9.5CBC and CMP in chart 04/07/2024 [id number] CAMI WILLARD [facility] [address] [place] [address] 05/08/2024 09:59:12 05/08/2024 10:47:22 Cardiomegaly 2224461 I51.7 following with Cardioorde red echo and CT calcium score Type 2 eboni betes mellitus without complication 343506797 E11.9 05/08/24: BS fasting 167, before bed 120, highest 500sDF exam nlc/w insulin and farxigaf/u in 1 mo for a1crec'd pt take rosuvastat in 04/07/24: avg BS before bed 300only giving herself 10 units LA at bedtimenee ds test stripsrec' d pt increase LA insulin to 30 units before bed, add farxiga 10, advised pt of ADRf/u in 1 mo with BS log Last A1C:Fastin g BG range:Curr ent Therapy:St atin: rosu 40ACE/ARB: NONEFoot Exam: completed 05/08/24, nlMicroalb umin: unable to leave urinePneum ovax 23: refusedDM eye exam:Pt was counseled on low carbohydra te diet to better manage diabetes. We went discussed pt's diet at length and I made specific dietary recommenda tions. I also encouraged regular exercise of 30-60 minutes most days of the week. Pt was encouraged to get yearly diabetic eye exams as well. 03/03/24: a1c today 7.8has insulin [place] and [place] how much insulin or BS numbers, son does all of it for itencourag ed to bring BS log at f/u appt in 1 mo Iron defic iency anemia 68583958 D50.9 05/05/24- saw GI, rec'd colonoscop yrefer to hematology per admission- anemia was secondary to sepsis and DANAY, GI bleed ruled outsent to GI on 03/18/24- hgb 9, iron sat 14, ferritin 541pt has been taking 65 mg iron every other dayre-chec k levels today- pt has stores of iron and iron sats slightly low, not as concerned for LANEY, need to r/o other causes of anemia Influenza vaccination declined 103400909 Z28.21 Pneumococc al vaccination declined 864449095 Z28.21 Serum crea tinine above reference range 393929880 R79.89 05/08/24: printed off referral and encouraged pt to call to schedule appt 04/14/24: Cr 1.36, eGFR 45refer to nephrology 03/03/24: Cr 1.52, eGFR 40recheck today Paresthesi a of bilateral hands 420579553 R20.2 since 11/2023numb ness/tingl ing/throbb ing to bilateral handsPEx- nlordered EMG bilat UE Depression screening 171 114349 Z13.31 PHQ 0 [id number] Maxine Carrasco MD [facility] [place] [facility] [address] [place] [address] 06/17/2024 15:47:41 06/18/2024 17:37:40 Cerebrovascular accident 089056616 I63.9 Essential hypertension 80011341 I10 History of cerebrovascular accident 987366860 Z86.73 Mixed hyperlipidemia 267 671738 E78.2 Bilateral lower leg edema 556061899 R60.0 Calcificat ion of coronary artery 505150807 I25.84 Anemia 085190977 D64.9 [id number] CAMI WILLARD [facility] [address] [place] [address] 06/09/2024 10:03:11 06/09/2024 10:33:34 Type 2 diabetes mellitus without complication 341548718 E11.9 06/09/24: a1c today 6.4last a1c 7.8decreas e levemir from 30 to 20 units due to fasting 120s-140s, advised to call office if fasting BS <100microa lbumin pendingf/u in 3 mo for a1c 05/08/24: BS fasting 167, before bed 120, highest 500sDF exam nlc/w insulin and farxigaf/u in 1 mo for a1crec'd pt take rosuvastat in 04/07/24: avg BS before bed 300only giving herself 10 units LA at bedtimenee ds test stripsrec' d pt increase LA insulin to 30 units before bed, add farxiga 10, advised pt of ADRf/u in 1 mo with BS log Last A1C:Fastin g BG range:Curr ent Therapy:St atin: rosu 40ACE/ARB: NONEFoot Exam: completed 05/08/24, nlMicroalb umin: unable to leave urinePneum ovax 23: refusedDM eye exam: encouraged to schedulePt was counseled on low carbohydra te diet to better manage diabetes. We went discussed pt's diet at length and I made specific dietary recommenda tions. I also encouraged regular exercise of 30-60 minutes most days of the week. Pt was encouraged to get yearly diabetic eye exams as well. 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 found on EMG BUE 4ref er to neurology- printed off referral and encouraged pt to call to schedule apptwants to try something for nerve pain to hands, trial cymbalta, advised pt of ADR Anemia of chronic disease 543736924 D63.8 upcoming colonoscop y and EGD, needs cardiac clearance due to pt taking plavixiron labs nlrefer to hematology - printed off referral and encouraged pt to call to schedule appt History of cerebrovascular accident 062840084 Z86.73 per patient, mini stroke on L sidedeclin es deficitsre [facility] [id number] CAMI APPIAH [facility] [address] [place] [address] 07/13/2024 13:54:44 07/13/2024 16:01:02 Type 2 diabetes mellitus 28782892 E11.9 -BS 211 after recent food intake-Con tinue medication s as prescribed . Monitor BS and notify office if readings <100 or >200.-Foll ow up with PCP as scheduled Epilepsy 62279691 G40.90 9 -Hx CVA-Concer n for absence seizure vs other seizure activity vs TIA vs CVA-Neuro exam wnl, VSS, pt alert and oriented-U rgent neurology referral placed-Bra in MRI ordered-Di scussed importance of careful monitoring . Recommend reliable family member stay with pt to watch for any repeat episodes. Advised pt and son to go to the ER immediatel y if symptoms return, even if symptoms resolve spontaneou sly Hypercalcemia 70757933 E 83.52 -Previous CMP with slightly elevated calcium at 10.6-Will repeat today to reassess Health Concerns Section Related Observation LastModified by Organization Detai ls LastModified Time None Recorded Concern Status LastModified by Organization Details LastModified Time None Recorded Advance Directives Directive N: Payers Encounter Date Sequence Insurance Name Policy Number Policy Diana Covered Member ID Diana Member ID Guarantor Name 05/05/2024 1 [place] [facility] (MEDICAID REPLACEMENT - HMO) [id number] Neetu Thakkar [id number] Neetu Thakkar 05/08/2024 1 [place] [facility] (MEDICAID REPLACEMENT - [place]MO) [id number] Neetu Thakkar [id number] Neetu Thakkar 06/09/2024 1 [place] [facility] ([place]ICAID REPLACEMENT - [place]MO) [id number] Neetu Thakkar [id number] Neetu Thakkar 06/17/2024 1 [place] [facility] ([place]ICAID REPLACEMENT - [place]MO) [id number] Neetu Thakkar [id number] Neetu Thakkar 07/13/2024 1 [place] [facility] ([place]ICAID REPLACEMENT - [place]MO) [id number] Neetu Thakkar [id number] Neetu Thakkar Notes Date Note Type Note Provider Name and Address Organization Details Recorded Time 05/05/2024 text/html Patient presents today for evaluation of anemia. States she's on PO iron and continues to have anemia. Has had ~3 epsiodes of hematochezia over the years, nothing currently. Denies hematemesis, hemoptysis, abdominal pain, nausea, vomiting. MERVAT ALMANZA [address] [place], [address], [facility] 05/05/2024 14:24:38 05/08/2024 text/html Pt presents for 1 mo f/u. States that she is established with cardiology, but has not been taking carvedilol or rosuvastatin. Pt c/o numbness/tingling/ throbbing sensation to both hands since 11/2023.She has not established with nephrology. CAMI WILLARD Attn: Accounting,[address] [place], [address], [facility] 05/12/2024 11:34:51 06/09/2024 text/html Pt presents for T2DM f/u. States that her fasting BS have been between 120s-140s and post prandial 150s or less. She has upcoming appts with [facility] [employer]. Requesting shower chair. CAMI WILLARD Attn: Accounting,[address] [place], [address], [facility] 06/09/2024 11:12:39 06/17/2024 text/html Ms. Thakkar is a 58-year-old female who returns for follow-up visit. She did undergo a CT coronary calcium scoring on 05/01/2024 which showed a total calcium score of 179. she has not had any further stroke symptoms since she had a stroke back in November when she had DKA. She does walk with a cane due to the fact that she has residual weakness on her left side from her stroke. she is not following any particular diet but her hemoglobin A1c is 6.4 which was done on 06/09/2024. She is compliant with her medications Including her rosuvastatin. She denies any side effects from medications.. She denies any chest pain, shortness of breath, dizziness, syncope, orthopnea, paroxysmal nocturnal dyspnea, palpitations or lower extremity edema. Maxine Carrasco MD Attn: Accounting,[address] , [place], [address], [facility] 06/17/2024 17:19:35 07/13/2024 text/html 58 yo F with PMH x CVA presents for neurologic symptoms. Pts son is present and provided hx. Son states that on pt was stirring food when she suddenly started shaking vigorously while standing and was not responsive to verbal stimuli. Son states he called her name multiple times with no response. Son was concerned pt was going to fall, so got he into a seated position. Pt continued shaking and did not respond to the pt calling her name. Son called 911 and while on the phone, mother stopped shaking and became alert and oriented. Son hung up with 911. Pt has no recollection of these events. Son denies any signs of fatigue or lethargy following this episode. Did not go to the ER. Son states his brother lives with pt, but is not overly attentive or present so son is not certain if any repeat episodes have occurred. CAMI APPIAH Attn: Accounting,[address] [facility], [place], [address], [facility] 07/17/2024 10:23:51 OBGyn Episode No OBEpisode recorded.
--- NOTE | 2024-09-18 14:50 | ED.DIZZY ---
HPI - Dizziness General Chief Complaint: Dizziness <Lilly Valdivia PA-C - Last Filed: 09/18/24 15:06> Stated Complaint: from , dizziness and hypotension <Lilly Valdivia PA-C - Last Filed: 09/18/24 15:06> Time Seen by Provider: 09/18/24 14:50 <Lilly Valdivia PA-C - Last Filed: 09/18/24 15:06> Focused HPI: Patient is a 58-year-old female who presents the ED with report of left-sided chest pain. Patient reports she has been having pain in her L lateral chest for the past 1.5 weeks. States pain is fairly constant. Denies aggravation with exertion/movement, deep breaths. Has been using Vicks w/ minimal relief. She does report also having a soreness in her left upper extremity. Denies any injury. She went to an urgent care today where she then had an episode of dizziness/ near syncope. Her blood pressure was low at that time and she was referred to the ED for further evaluation. BP upon my evaluation, 106/65. Denies shortness breath, recent cough or cold symptoms, fevers. GENERAL: Appears older than stated age, mildly ill/pale appearing, and in no acute distress. HEAD: Normocephalic, atraumatic. CHEST: Clear to auscultation. ?No respiratory distress. HEART: Regular rate and rhythm.? MSK: TTP along L posterolateral rib cage w/o palpable bony deformities. No significant tenderness throughout LUE. NEURO: ?Alert and oriented x3. Patient screened in triage and initial orders placed.? ?Additional care and disposition to be based upon?diagnostic testing and treatment. <Lilly Valdivia PA-C - Last Filed: 09/18/24 15:06> Focused HPI: Patient is a 58-year-old female who presents the ED with report of left-sided chest/rib pain. Patient reports she has been having pain in her L lateral chest for the past 1.5 weeks. States pain is fairly constant. Denies aggravation with exertion/movement, deep breaths. Has been using Vicks w/ minimal relief. She does report also having a soreness in her left upper extremity. Denies any injury. She went to an urgent care today where she then had an episode of dizziness/ near syncope. Her blood pressure was low at that time and she was referred to the ED for further evaluation. BP upon my evaluation, 106/65. Denies shortness breath, recent cough or cold symptoms, fevers. GENERAL: Appears older than stated age, mildly ill/pale appearing, and in no acute distress. HEAD: Normocephalic, atraumatic. CHEST: Clear to auscultation. ?No respiratory distress. HEART: Regular rate and rhythm.? MSK: TTP along L posterolateral rib cage w/o palpable bony deformities. No significant tenderness throughout LUE. NEURO: ?Alert and oriented x3. Patient screened in triage and initial orders placed.? ?Additional care and disposition to be based upon?diagnostic testing and treatment. <PHI Baez Last Filed: 09/18/24 20:19> Source: patient <PHI Camarena Last Filed: 09/18/24 15:06> Mode of arrival: EMS <PHI Camarena Last Filed: 09/18/24 15:06> Limitations: no limitations <PHI Camarena Last Filed: 09/18/24 15:06> Related Data Home Medications: Home Medications ?Medication ?Instructions ?Recorded ?Confirmed ?Last Taken ?Type aspirin 81 mg tablet,delayed 81 mg PO DAILY 09/18/24 09/18/24 Unknown History release carvedilol 6.25 mg tablet 6.25 mg PO DAILY 09/18/24 09/18/24 Unknown History dapagliflozin propanediol 10 mg 10 mg PO DAILY 09/18/24 09/18/24 Unknown History tablet (Farxiga) duloxetine 30 mg capsule,delayed 30 mg PO DAILY 09/18/24 09/18/24 Unknown History release furosemide 40 mg tablet 40 mg PO DAILY 09/18/24 09/18/24 Unknown History hydralazine 25 mg tablet 25 mg PO DAILY 09/18/24 09/18/24 Unknown History latanoprost 0.005 % eye drops 1 drp EACH EYE QPM 09/18/24 09/18/24 Unknown History <PHI Camarena Last Filed: 09/18/24 15:06> Allergies/Adverse Reactions: Allergies Allergy/AdvReac Type Severity Reaction Status Date / Time No Known Allergies Allergy Verified 09/18/24 12:27 <Lilly Valdivia PA-C - Last Filed: 09/18/24 15:06> Review of Systems Review of Systems: All systems reviewed & are unremarkable except as noted in HPI and below <Jasmine Lea PA-C - Last Filed: 09/18/24 20:19> [facility] Past Medical History Medical History: Medical History (Updated 09/18/24 @ 20:15 by Jasmine Lea PA-C) History of CVA (cerebrovascular accident) History of hypertension History of diabetes mellitus <Lilly Valdivia PA-C - Last Filed: 09/18/24 15:06> Social History Social History: Social History (Updated 09/18/24 @ 18:56 by Jasmine Lea PA-C) Substance use: never <Lilly Valdivia PA-C - Last Filed: 09/18/24 15:06> Exam Narrative: GENERAL: Well-appearing, well-nourished, and in no acute distress. HEAD: Normocephalic, atraumatic. EYES: EOMI. ENT: Nares clear, no rhinorrhea or epistaxis. Mucous membranes moist. Oropharynx without tonsillar hypertrophy exudate or other lesions. NECK: Supple. No adenopathy or masses. No JVD CHEST: Clear to auscultation. No respiratory distress. No wheezes rales or rhonchi HEART: Regular rate and rhythm. No murmur heard. Normal peripheral pulses. EXTREMITIES: Normal range of motion. No edema. SKIN: Warm, dry, no rash. NEURO: No focal deficits. Alert and oriented x3. PSYCH: Normal mood and affect <Jasmine Lea PA-C - Last Filed: 09/18/24 20:19> Course Vital Signs Vital signs: Vital Signs Temperature 98 F 09/18/24 12:37 Pulse Rate 90 09/18/24 12:37 Respiratory Rate 16 09/18/24 12:37 Blood Pressure 94/56 L 09/18/24 12:37 Pulse Oximetry 100 09/18/24 12:37 Temperature 98 F 09/18/24 12:37 Pulse Rate 90 09/18/24 19:01 Respiratory Rate 14 09/18/24 19:01 Blood Pressure 122/68 09/18/24 19:01 Pulse Oximetry 100 09/18/24 19:01 <Lilly Valdivia PA-C - Last Filed: 09/18/24 15:06> Vital Signs Temperature 98 F 09/18/24 12:37 Pulse Rate 90 09/18/24 12:37 Respiratory Rate 16 09/18/24 12:37 Blood Pressure 94/56 L 09/18/24 12:37 Pulse Oximetry 100 09/18/24 12:37 Temperature 98 F 09/18/24 12:37 Pulse Rate 90 09/18/24 19:01 Respiratory Rate 14 09/18/24 19:01 Blood Pressure 122/68 09/18/24 19:01 Pulse Oximetry 100 09/18/24 19:01 <Jasmine Lea PA-C - Last Filed: 09/18/24 20:19> MDM - Dizziness MDM Narrative Medical decision making narrative: MSE by RAYSA in triage. BP 1505 - 105/65 <Lilly Valdivia PA-C - Last Filed: 09/18/24 15:06> MSE by RAYSA in triage. BP 15:05 - 105/65 Patient presents to the emergency department for dizziness from urgent care. Blood pressure soft upon arrival, this normalized after IV fluids. Patient reports feeling well. Cbc without leukocytosis. Shows normocytic anemia hemoglobin of 9.6. Metabolic panel likely with some evidence of dehydration. Patient did receive a L of IV fluids. EKG without concerning changes. Baseline troponin is negative. Chest x-ray without acute cardiopulmonary abnormality. Patient updated on her workup and agrees with plan of care. She is to follow up with primary provider. She was given warnings to return to the ER <Jasmine Lea PA-C - Last Filed: 09/18/24 20:19> Differential Diagnosis Differential diagnosis: Likely benign paroxysmal positional vertigo and orthostatic hypotension <PHI Baez Last Filed: 09/18/24 20:19> Lab Data Attestation: I reviewed the patient's lab results. <Jasmine Lae PA-C - Last Filed: 09/18/24 20:19> Result diagrams: 09/18/24 17:24 09/18/24 17:24 <Lilly Valdivia PA-C - Last Filed: 09/18/24 15:06> Labs: Lab Results 09/18/24 Range/Units 17:24 WBC 6.3 (4.5-10.0) K/mm3 RBC 3.26 L (4.2-5.4) M/mm3 Hgb 9.6 L (12.0-15.0) g/dL Hct 29.0 L (37.0-47.0) % MCV 89.0 (80-100) fl MCH 29.4 (26-34) pg MCHC 33.1 (32-36) g/dl RDW 12.4 (11.5-14.5) % Plt Count 219 (150-375) k/mm3 MPV 9.4 (7.4-10.4) fl Immature Gran % (Auto) 0.2 (0-0.5) % Neut % (Auto) 50.2 (45.5-73.1) % Lymph % (Auto) 40.3 (18.3-44.2) % [place] % (Auto) 7.1 (2.6-8.5) % Eos % (Auto) 1.6 (0-4.4) % Baso % (Auto) 0.6 (0.2-1.2) % Lymph # (Auto) 2.55 (0.9-3.2) K/mm3 [place] # (Auto) 0.5 (0.1-0.6) K/mm3 Eos # (Auto) 0.1 (0-0.3) K/mm3 Baso # (Auto) 0.0 (0.0-0.1) K/mm3 Abs Immat Gran (auto) 0.01 (0.00-0.031) K/mm3 Absolute Neuts (auto) 3.2 (1.3-6.7) K/mm3 Absolute Nucleated RBC 0.000 (0.0-0.012) K/mm3 Nucleated RBC % 0.0 (0.0-0.2) % PT 13.7 (11.1-14.7) Seconds INR 1.0 APTT 31.1 (22.3-36.8) Seconds D-Dimer 0.34 (<0.48) ug/mL Sodium 138 (137-145) mmol/L Potassium 3.7 (3.4-5.0) mmol/L Chloride 102 (98-107) mmol/L Carbon Dioxide 25 (22-30) mmol/L Anion Gap 11 (4-12) mmol/L BUN 23 H (7-17) mg/dL Creatinine 1.46 H (0.7-1.0) mg/dL Estim Creat Clear Calc 35 ml/min Estimated GFR 37 L (59 - ) Glucose 262 H (65-110) mg/dL Calcium 9.1 (8.4-10.2) mg/dL Total Bilirubin 0.4 (0.2-1.3) mg/dL AST 19 (14-36) U/L ALT 19 (6-35) U/L Alkaline Phosphatase 54 (38-126) U/L Troponin I < 0.012 (0.000-0.034) ng/mL Total Protein 7.0 (6.3-8.2) g/dL Albumin 3.5 (3.5-5.1) g/dL <Lilly Valdivia PA-C - Last Filed: 09/18/24 15:06> Lab Results 09/18/24 Range/Units 17:24 WBC 6.3 (4.5-10.0) K/mm3 RBC 3.26 L (4.2-5.4) M/mm3 Hgb 9.6 L (12.0-15.0) g/dL Hct 29.0 L (37.0-47.0) % MCV 89.0 (80-100) fl MCH 29.4 (26-34) pg MCHC 33.1 (32-36) g/dl RDW 12.4 (11.5-14.5) % Plt Count 219 (150-375) k/mm3 MPV 9.4 (7.4-10.4) fl Immature Gran % (Auto) 0.2 (0-0.5) % Neut % (Auto) 50.2 (45.5-73.1) % Lymph % (Auto) 40.3 (18.3-44.2) % [place] % (Auto) 7.1 (2.6-8.5) % Eos % (Auto) 1.6 (0-4.4) % Baso % (Auto) 0.6 (0.2-1.2) % Lymph # (Auto) 2.55 (0.9-3.2) K/mm3 [place] # (Auto) 0.5 (0.1-0.6) K/mm3 Eos # (Auto) 0.1 (0-0.3) K/mm3 Baso # (Auto) 0.0 (0.0-0.1) K/mm3 Abs Immat Gran (auto) 0.01 (0.00-0.031) K/mm3 Absolute Neuts (auto) 3.2 (1.3-6.7) K/mm3 Absolute Nucleated RBC 0.000 (0.0-0.012) K/mm3 Nucleated RBC % 0.0 (0.0-0.2) % PT 13.7 (11.1-14.7) Seconds INR 1.0 APTT 31.1 (22.3-36.8) Seconds D-Dimer 0.34 (<0.48) ug/mL Sodium 138 (137-145) mmol/L Potassium 3.7 (3.4-5.0) mmol/L Chloride 102 (98-107) mmol/L Carbon Dioxide 25 (22-30) mmol/L Anion Gap 11 (4-12) mmol/L BUN 23 H (7-17) mg/dL Creatinine 1.46 H (0.7-1.0) mg/dL Estim Creat Clear Calc 35 ml/min Estimated GFR 37 L (59 - ) Glucose 262 H (65-110) mg/dL Calcium 9.1 (8.4-10.2) mg/dL Total Bilirubin 0.4 (0.2-1.3) mg/dL AST 19 (14-36) U/L ALT 19 (6-35) U/L Alkaline Phosphatase 54 (38-126) U/L Troponin I < 0.012 (0.000-0.034) ng/mL Total Protein 7.0 (6.3-8.2) g/dL Albumin 3.5 (3.5-5.1) g/dL <Jasmine Lea PA-C - Last Filed: 09/18/24 20:19> Imaging Data Radiologist's impression: ITS Impressions Chest X-Ray 09/18/24 15:31 IMPRESSION: 1. No acute cardiopulmonary disease. <PHI Baez Last Filed: 09/18/24 20:19> ECG Data EKG #1: ECG completion date: 09/18/24 <PHI Baez Last Filed: 09/18/24 20:19> EKG Interpretation: normal rate, sinus rhythm, no ST changes and normal QT <PHI Baez Last Filed: 09/18/24 20:19> Critical Care Time Critical Care Time Critical Care Time: No <PHI Baez Last Filed: 09/18/24 20:19> Discharge Plan Discharge Clinical Impression: Orthostatic hypotension <PHI Camarena Last Filed: 09/18/24 15:06> Patient Disposition: Home, Self-Care <PHI Camarena Last Filed: 09/18/24 15:06> Condition: Improved <PHI Camarena Last Filed: 09/18/24 15:06> Instructions: Dizziness (ED) <PHI Camarena Last Filed: 09/18/24 15:06> Additional Instructions: Return to the emergency department if you experience fever, chest pain, shortness of breath, you pass out, weakness, numbness, or any other symptoms that are concerning to you. Remain well hydrated. Stand slowly from seated position Follow up with your primary care doctor <PHI Camarena Last Filed: 09/18/24 15:06> Patient Language: Botswanan <PHI Camarena Last Filed: 09/18/24 15:06> Prescriptions: No Action loratadine [Claritin] 10 mg tablet 10 mg PO DAILY Qty: 30 0RF fluticasone propionate [Flonase Allergy Relief] 50 mcg/actuation spray,suspension 2 spray NASAL DAILY Qty: 15.8 0RF Rx Instructions: administer into each nostril aspirin 81 mg tablet,delayed release (DR/EC) 81 mg PO DAILY carvedilol 6.25 mg tablet 6.25 mg PO DAILY dapagliflozin propanediol [Farxiga] 10 mg tablet 10 mg PO DAILY duloxetine 30 mg capsule,delayed release(DR/EC) 30 mg PO DAILY furosemide 40 mg tablet 40 mg PO DAILY hydralazine 25 mg tablet 25 mg PO DAILY latanoprost 0.005 % drops 1 drp EACH EYE QPM <Lilly Valdivia PA-C - Last Filed: 09/18/24 15:06> Follow-up/Referrals: Torsten,CAMI Daly [Primary Care Provider] - <Lilly Valdivia PA-C - Last Filed: 09/18/24 15:06>
--- NOTE | 2024-09-18 15:03 | ECG_ITS ---
Test Date: 2024-09-18 11:42:08 Measurements Intervals [place] Rate: 88 P: 46 SC: 144 QRS: 15 QRSD: 84 T: 31 QT: 350 QTc: 424 Interpretive Statements SINUS RHYTHM BASELINE ARTIFACT- I, III, AVR, AVL NORMAL ECG No previous ECG available for comparison Electronically Signed On 09-18-2024 15:55:08 NIP WRAPPER by Soy Chambers D.O.
[2024-09-18 17:30] LABS: Basophils Percent Auto 0.6 % (0.2-1.2); Eosinophils Absolute Auto 0.1 K/mm3 (0-0.3); Eosinophils Percent Auto 1.6 % (0-4.4); Hemoglobin 9.6 g/dL (12.0-15.0); Immature Granulocyte Absolute 0.01 K/mm3 (0.00-0.031); Immature Granulocyte Percent A 0.2 % (0-0.5); Lymphocytes Absolute Auto 2.55 K/mm3 (0.9-3.2); Lymphocytes Percent Auto 40.3 % (18.3-44.2); Mean Corpuscular HGB Conc 33.1 g/dl (32-36); Mean Corpuscular Hemoglobin 29.4 pg (26-34); Mean Platelet Volume 9.4 fl (7.4-10.4); Monocytes Absolute Auto 0.5 K/mm3 (0.1-0.6); Monocytes Percent Auto 7.1 % (2.6-8.5); Neutrophils Absolute Auto 3.2 K/mm3 (1.3-6.7); Neutrophils Percent Auto 50.2 % (45.5-73.1); Platelet Count Result 219 k/mm3 (150-375); Red Blood Count 3.26 M/mm3 (4.2-5.4); Red Cell Distribution Width 12.4 % (11.5-14.5); White Blood Count 6.3 K/mm3 (4.5-10.0)
[2024-09-18 17:46] LABS: Alanine Aminotransferase 19 U/L (6-35); Albumin Level 3.5 g/dL (3.5-5.1); Alkaline Phosphatase 54 U/L (38-126); Anion Gap 11 mmol/L (4-12); Aspartate Amino Transferase 19 U/L (14-36); Bilirubin,Total 0.4 mg/dL (0.2-1.3); Blood Urea Nitrogen 23 mg/dL (7-17); Calcium 9.1 mg/dL (8.4-10.2); Carbon Dioxide 25 mmol/L (22-30); Chloride 102 mmol/L (98-107); Estimated CRCL calculation 35 ml/min; Estimated Glomerular Filt Rate 37; Glucose 262 mg/dL (65-110); Potassium 3.7 mmol/L (3.4-5.0); Sodium 138 mmol/L (137-145)
[2024-09-18 17:55] LABS: Partial Thromboplastin Time 31.1 Seconds (22.3-36.8); Prothrombin Time 13.7 Seconds (11.1-14.7)
[2024-09-18 17:57] LABS: Troponin I < 0.012 ng/mL (0.000-0.034)
[2024-09-18 17:58] LABS: D Dimer 0.34 ug/mL (<0.48)
--- OUTSIDE RECORDS SUMMARY | 2024-09-18 18:56 | XMS_ITS | Referral Summary ---
Author Organization [facility] Address [address] [place] [address] Care Team Providers Care Support Team Member Name Role Phone Malika Sarmiento Primary Care Provider [phone] Encounters Date Type Department Care Team Description 06/22/2024 3:20 PM MOLD LAMINATOR - 06/22/2024 11:59 PM MOLD LAMINATOR Hospital Encounter [facility] [address] [place], [place] [id number] Stage 3b chronic kidney disease (CKD) (HCC); [...] ki associated with type 2 diabetes mellitus ([facility]) 12/04/2023 Social History Tobacco Use Types Packs/Day Years Used Date Smoking Tobacco: Never Tobacco Cessation:Counseling Given: Not Answered [facility] Utilities Answer Date Recorded In the past 12 months has [employer], [employer], or water [employer] threatened to shut off services in your [...] often do you attend chur ch or samaritan services? More than 4 times per year 12/05/2023 Do you belong to any clubs o r organizations such as samaritan groups, unions, fraternal or athletic groups, or [...] place to sleep or slept in a snf (including now)? No 12/05/2023 Personal Safety Answer Date Recorded Have you ever been in or are you currently in a harmful physical or emotional relationship or is someone making you feel afraid or unsafe? Denies 12/13/2023 Comments Unknown Sex and Gender Information Value Date Recorded Sex Assigned at Not on file Legal Sex Female 1:36 AM MOLD LAMINATOR Gender Identity Not on file Sexual Orientation [...] Read Routine (OP Routine) 06/22/2024 4:14 PM MOLD LAMINATOR Stage 3b chronic kidney disease (CKD) (HCC) Primary hypertension EGFR Routine 12/26/2023 9:26 AM CDT ALBUMIN CREATININE RATIO, URINE Routine 12/12/2023 2:20 PM CDT LIPID PANEL Routine 12/11/2023 3:34 AM CDT HEMOGLOBIN A1C STAT 12/04/2023 4:56 AM CDT from Last 3 Months or Most Recently Relevant to Health Maintenance Results * US Kidney Complete (06/22/2024 4:14 PM MOLD LAMINATOR) Anatomical Region Laterality Modality Kidney N/A Ultrasound 06/25/2024 9:00 PM MOLD LAMINATOR Narrative 06/25/2024 9:19 PM MOLD LAMINATOR EXAM DESCRIPTION: US KIDNEY COMPLETE REASON FOR [...] Jamie Staley M.D. KT T: Report ID: [id number] Reading Location: [id number] Procedure Note Jamie Staley MD - 06/25/2024 [...] Jamie Staley M.D. KT T: Report ID: [id number] Reading Location: [id number] Timmy Gomez MD [facility] PROCEDURES Final Result * (ABNORMAL) eGFR [...] ORDERABLES Final Res ult Performing Organization Address City/[facility]/ZIP Co de Phone Number [id number] [place] [address] * (ABNORMAL) Albumin Creatinine Ratio, Urine (12/12/2023 2:20 PM CDT) Albumin Ur 39.6 mg/L Comment: Interpretive Data No reference range established. Current interpretive data was last revised 2018. Creatinine Ur 20.1 mg/dL [facility] Comment: Interpretive Data No reference range established. Current interpretive data was last revised 2018. Albumin Creatinine Ratio, Ur 197(H) 1 - 29 mg/g [facility] Urine 12/12/2023 2:20 PM CDT 12/12/2023 2:26 PM CDT us Dick Hoff MD LAB URINE ORDERABLES Final Re sult Performing Organization Address City/[facility]/ZIP Co de Phone Number [address] [place] [address] * (ABNORMAL) Lipid panel (12/11/2023 3:34 AM [...] LAB BLOOD ORDERABLE S Final Result SARAH [address] [facility] [place] [address] * (ABNORMAL) Hemoglobin A1c (12/04/2023 4:56 AM CDT) Hgb A1C 12.9(H) 4.0 - 5.6 % Estimated Average Glucose 324 mg/dL SARAH NUNEZ Comment: The ADA recommends reporting an estimated Average Glucose (eAG) with all Hemoglobin A1c results using the equation derived from a study of 507 normal and diabetic adults. Minority populations were underrepresented and children were not included. (Diabetes Care 31:3989-3105, 2008). The eAG is not equivalent to a fasting glucose. Blood 12/04/2023 4:56 AM CDT 12/04/2023 5:04 AM CDT us Ovidio Whitfield MD LAB BLOOD ORDERABLES Final Result CERNER [facility] [address] [facility] [place] [address] from Last 3 Months or Most Recently Relevant to Health Maintenance Insurance PLAN PLAN Advance Directives For more information, please contact: [phone] * Full Code (Latest Code Status on File) Date Activated Date Inactivated Comments 12/06/2023 4:12 PM 12/26/2023 8:17 PM Care Teams Support Team Member Relationship Specialty Start Date End Date Malika Sarmiento PA [address] [place] [phone] PCP - General Physician Lead Process Engineer 12/26/23
--- OUTSIDE RECORDS SUMMARY | 2024-09-18 18:56 | XMS_ITS | Clinical Summary ---
Author Organization [facility] Address [address] [place] [address] Care Team Providers Care Hay Sorter Name Role Phone Malika Sarmiento PA-C Primary Care Provider [phone] Encounters Date Type Department Care Team Description 09/02/2024 3:01 PM MEDICAL ASSISTANT FLOAT - 09/02/2024 11:59 PM MEDICAL ASSISTANT [place] [address] Lazara Goldman PA-C Discharge Disposition: Home or Self Care (Routine Discharge) 09/02/2024 Travel 07/06/2024 1:04 PM MEDICAL ASSISTANT FLOAT - 07/06/2024 11:59 PM MEDICAL ASSISTANT FLOAT [place] [address] Timmy Gomez MD Discharge Disposition: Home or Self Care (Routine Discharge) 07/06/2024 Travel 07/01/2024 4:26 PM MEDICAL ASSISTANT FLOAT - 07/01/2024 11:59 PM MEDICAL ASSISTANT FLOAT [place] [address] Timmy Gomez MD Discharge Disposition: Home or Self Care (Routine Discharge) 07/01/2024 10:07 AM MEDICAL ASSISTANT FLOAT - 07/01/2024 4:25 PM MEDICAL ASSISTANT FLOAT [place] [address] Timmy Gomez MD Discharge Disposition: Home or Self Care (Routine Discharge) 07/01/[address] [place] [address] Timmy Gomez MD 07/01/2024 Travel from Last 3 Months Social History Tobacco Use Types Packs/Day Years Used Date Smoking Tobacco: Never Comments Unknown Sex and Gender Information Value Date Recorded Sex Assigned at Female 08/19/2024 1:31 PM MEDICAL ASSISTANT FLOAT Legal Sex Female 9:22 PM CDT Gender [...] cm (5' 5 ) 08/12/2012 12:06 PM MEDICAL ASSISTANT FLOAT Body Mass Index 32.45 08/12/2012 12:06 PM MEDICAL ASSISTANT FLOAT Plan of Treatment Health Maintenance Due Date [...] BRAIN WO CON Routine 09/02/2024 4:58 PM MEDICAL ASSISTANT FLOAT Epilepsy, unspecified, not intractable, without status epilepticus ([facility]/HCC HHS/HCC) CREATININE URINE RANDOM Routine 07/06/2024 1:05 PM MEDICAL ASSISTANT FLOAT Stage 3b chronic kidney disease ([facility]/HCC HHS/HCC) Hypertension, essential PROTEIN TOTAL URINE RANDOM Routine 07/06/2024 1:05 PM MEDICAL ASSISTANT FLOAT Stage 3b chronic kidney disease ([facility]/HCC HHS/HCC) Hypertension, essential HC URINALYSIS AUTO W/O MICRO Routine 07/06/2024 1:05 PM MEDICAL ASSISTANT FLOAT Stage 3b chronic kidney disease (CMS/HCC HHS/HCC) Hypertension, essential FERRITIN Routine 07/01/2024 10:21 AM MEDICAL ASSISTANT FLOAT Stage 3b chronic kidney disease ([facility]/HCC HHS/HCC) Hypertension, essential HEMOGLOBIN, GLYCOSYLATED Routine 07/01/2024 10:21 AM MEDICAL ASSISTANT FLOAT Stage 3b chronic kidney disease ([facility]/HCC HHS/HCC) Hypertension, essential VITAMIN D, 25 OH Routine 07/01/2024 10:2 1 AM MEDICAL ASSISTANT FLOAT Stage 3b chronic kidney disease (CMS/HCC HHS/HCC) Hypertension, essential CBC W/DIFF AUTOMATED Routine 07/01/2024 10:21 AM MEDICAL ASSISTANT FLOAT Stage 3b chronic kidney disease (CMS/HCC HHS/HCC) Hypertension, essential RENAL FUNCTION PANEL Routine 07/01/2024 10:21 AM MEDICAL ASSISTANT FLOAT Stage 3b chronic kidney disease ([facility]/HCC HHS/HCC) Hypertension, essential LIPID PANEL Routine 08/23/2011 12:00 AM MEDICAL ASSISTANT FLOAT from Last 3 Months or Most Recently Relevant to Health Maintenance Results * MRI BRAIN WO CON (09/02/2024 4:58 PM MEDICAL ASSISTANT FLOAT) Anatomical Region Laterality Modality Head Magnetic Resonan ce 09/02/2024 7:45 PM MEDICAL ASSISTANT FLOAT Impressions 09/02/2024 7:47 PM MEDICAL ASSISTANT FLOAT IMPRESSION: 1. No acute intracranial abnormality. 2. 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 Referred By: LAZARA GOLDMAN Interpreted By: Klever Chavis MD, 09/02/2024 7:45 PM Narrative 09/02/2024 7:47 PM MEDICAL ASSISTANT FLOAT [address] [address] EXAMINATION: MRI BRAIN WO CON, 09/02/2024 7:45 [...] Procedure Note Klever Chavis MD - 09/02/20[address], [place] [address] EXAMINATION: MRI BRAIN WO CON, 09/02/2024 7:45 [...] PROTEIN TOTAL URINE RANDOM (07/06/2024 1:05 PM MEDICAL ASSISTANT FLOAT) PROTEIN URINE TOTAL RANDOM 5.6 <10 MG/DL 07/06/2024 1:49 PM MEDICAL ASSISTANT FLOAT [facility] URINE SPECIMEN / Unknown 07/06/2024 1:05 PM MEDICAL ASSISTANT FLOAT us Timmy Gomez MD URINE ORDERABLES Final Result [facility] [address] [place] [address], [place] [phone] * CREATININE URINE RANDOM (07/06/2024 1:05 PM MEDICAL ASSISTANT FLOAT) CREATININE (U) 40.5 28 - 217 MG/DL 07/06/2024 1:[address] [facility] URINE SPECIMEN / Unknown 07/06/2024 1:05 PM MEDICAL ASSISTANT FLOAT Timmy Gomez MD URINE ORDERABLES Final Result [facility] [address] [place] [address], [place] [phone] * (ABNORMAL) URINALYSIS (07/06/2024 1:05 PM MEDICAL ASSISTANT FLOAT) SPECIMEN TYPE URINE CLEAN CATCH 07/06/2024 1:[address] [facility] COLOR (U) LIGHT YELLOW 07/06/2024 1:[address] [facility] TRANSPARENCY CLEAR 07/06/2024 1:[address] [facility] SPECIFIC GRAVITY (U) 1.007 1.001 - 1.030 07/06/2024 1:45 [address] [facility] U PH 5.0 5.0 - 9.0 07/06/2024 1:[address] [facility] LEUKOCYTES (U) 250(A) NEGATIVE 07/06/2024 1:[address] [facility] NITRITES NEGATIVE NEGATIVE 07/06/2024 1:[address] [facility] PROTEIN RANDOM (U) NEGATIVE <30 MG/DL 07/06/2024 1:[address] [facility] GLUCOSE (U) >1000(A) NORMAL MG/DL 07/06/2024 1:[address] [facility] KETONES MG/DL (U) NEGATIVE NEGATIVE MG/DL 07/06/2024 1:45 PM [address] ASS[address] FLOAT [facility] UROBILINOGEN NORMAL NORMAL MG/DL 07/06/2024 1:45 PM [address] FLOAT [facility] BILIRUBIN (U) NEGATIVE NEGATIVE MG/DL 07/06/2024 1:45 PM [address] ASSISTANT FLOAT [facility] BLOOD (U) NEGATIVE NEGATIVE 07/06/2024 1:45 PM MEDICAL ASSISTANT FLOAT [facility] MUCUS MANY /LPF 07/06/2024 1:45 PM [address] ASSISTANT FLOAT [facility] WBC/HPF 14(H) <6 /HPF 07/06/2024 1:45 PM MED[address] ASSISTANT FLOAT [facility] BACTERIA (U) RARE(A) NONE /HPF 07/06/2024 1:45 PM [address] ASSISTANT FLOAT [facility] SQUAMOUS EPITHELIALS RARE /HPF 07/06/2024 1:45 PM [address] ASSISTANT FLOAT [facility] URINE SPECIMEN OBTAINED BY CLEAN CATCH PROCEDURE / Unknown 07/06/2024 1:05 PM MEDICAL ASSISTANT FLOAT Timmy Gomez MD URINE ORDERABLES Final Result [facility] [address] [place] [address], * (ABNORMAL) HEMOGLOBIN, GLYCOSYLATED (07/01/2024 10:21 AM MEDICAL ASSISTANT FLOAT) HGB A1C 6.3(H) <5.7 % 07/01/2024 11:10 [address] [facility] Comment: ADA GUIDELINES 2010 5.7 TO 6.4% INCREASED RISK OF DIABETES > OR = 6.5% CONSISTENT WITH DIABETES ESTIMATED AVG GLUCOSE 134 mg/dL 07/01/2024 11:10 [address] [facility] 07/01/2024 10:2 1 AM MEDICAL ASSISTANT FLOAT Timmy Gomez MD LABORATORY Final Result [facility] [address] [place] [address], * (ABNORMAL) RENAL FUNCTION PANEL (07/01/2024 10:21 AM MEDICAL ASSISTANT FLOAT) [facility] Signature GLUCOSE 88 70 - 99 MG/DL 07/01/2024 11:[address] [facility] BUN 25(H) 7 - 18 MG/DL 07/01/2024 11:[address] [facility] CREATININE S/P/B 1.47(H) 0.55 - 1.02 MG/DL 07/01/2024 11:[address] [facility] SODIUM S/P/B 137 136 - 145 MMOL/L 07/01/2024 11:[address] [facility] POTASSIUM S/P/B 3.8 3.5 - 5.1 MMOL/L 07/01/2024 11:[address] [facility] CHLORIDE S/P/B 106 97 - 115 MMOL/L 07/01/2024 11:[address] [facility] CO2 27.5 21 - 32 MMOL/L 07/01/2024 11:[address] [facility] CALCIUM S/P/B 9.9 8.5 - 10.1 MG/DL 07/01/2024 11:[address] [facility] ALBUMIN S/P/B 3.3(L) 3.4 - 5.0 G/DL 07/01/2024 11:[address] [facility] PHOSPHORUS 3.7 2.5 - 4.9 MG/DL 07/01/2024 11:[address] [facility] ANION GAP 3.5 2 - 10 MMOL/L 07/01/2024 11:[address] [facility] BUN CREATININE RATIO 17.0 6 - 26 07/01/2024 11:[address] [facility] GFR ESTIMATE 41(L) >90 ML/MIN/1.7 3 M2 07/01/2024 11:[address] [facility] Comment: NOTE: eGFR is not calculated for patients <18 years of age or gender unknown. This is an estimated GFR calculation using the new CKD EPI creatinine equation without race and so does not require a correction factor for race. This estimated GFR should not be used for calculating drug doses. 07/01/2024 10:2 1 AM MEDICAL ASSISTANT FLOAT Timmy Gomez MD LABORATORY Final Result [facility] [address] [place] [address], * (ABNORMAL) CBC W/DIFF AUTOMATED (07/01/2024 10:21 AM MEDICAL ASSISTANT FLOAT) WBC 5.77 4.5 - 11.0 x10'3/uL 07/01/2024 10:[address] [facility] RBC 3.56(L) 4.20 - 5.40 x10'6/uL 07/01/2024 10:[address] [facility] HGB 10.2(L) 12.0 - 16.0 G/DL 07/01/2024 10:[address] [facility] HCT 31.2(L) 38.0 - 48.0 % 07/01/2024 10:[address] [facility] MCV 87.6 81.0 - 99.0 FL 07/01/2024 10:[address] [facility] MCH 28.7 27.0 - 31.0 PG 07/01/2024 10:[address] [facility] MCHC 32.7 32.0 - 36.0 G/DL 07/01/2024 10:[address] [facility] RDW 12.5 11.5 - 14.5 % 07/01/2024 10:[address] [facility] PLT 239 130 - 400 x10'3/uL 07/01/2024 10:[address] [facility] MPV 9.5 9.3 - 12.2 FL 07/01/2024 10:[address] [facility] DIFFERENTIAL TYPE AUTOMATED DIFFERENTIAL 07/01/2024 10:[address] [facility] NEUTROPHILS % 54.1 % 07/01/2024 10:[address] [facility] LYMPHOCYTES % 37.3 % 07/01/2024 10:[address] [facility] MONOCYTES % 6.6 % 07/01/2024 10:[address] [facility] EOSINOPHILS 1.4 % 07/01/2024 10:[address] [facility] BASOPHILS 0.3 % 07/01/2024 10:[address] [facility] IMMATURE GRANS % 0.3 % 07/01/20 10:[address] [facility] ABS. NEUTROPHILS 3.12 1.80 - 7.70 x10'3/uL 07/01/2024 10:[address] [facility] ABS. LYMPHOCYTES 2.15 1.00 - 4.80 x10'3/uL 07/01/2024 10:[address] [facility] ABS. MONOCYTES 0.38 0.24 - 0.86 x10'3/uL 07/01/2024 10:[address] [facility] ABS. EOSINOPHILS 0.08 0.04 - 0.36 x10'3/uL 07/01/2024 10:41 [address] MED[address] ASSIST[address] FLO[address] [facility] ABS. BASOPHILS 0.02 0.01 - 0.08 x10'3/uL 07/01/2024 10:41 [address] [facility] ABS. IMMATURE GRANULOCYTES 0.02 0.00 - 0.49 x10'3/uL 07/01/2024 10:41 [address] ASS[address] F[address] [facility] 07/01/2024 10:2 1 AM MEDICAL ASSISTANT FLOAT us Timmy Gomez MD LABORATORY Final Result [facility] [address] [place] [address], [place] [phone] * (ABNORMAL) VITAMIN D, 25 OH (07/01/2024 10:21 AM MEDICAL ASSISTANT FLOAT) VITAMIN D 25 HYDROXY S/P/B 29(L) 30 - 100 NG/ML 07/01/2024 11:10 AM [address] ASS[address] FLO[address] [facility] Comment: INTERPRETATION DEFICIENT <20 INSUFFICIENT 20-29 SUFFICIENT 30-100 07/01/2024 10:2 1 AM MEDICAL ASSISTANT FLOAT us Timmy Gomez MD LABORATORY Final Result [facility] [address] [place] [address], [place] [phone] * FERRITIN (07/01/2024 10:21 AM MEDICAL ASSISTANT FLOAT) FERRITIN 239.2 8.0 - 388.0 NG/ML 07/01/2024 12:34 [address] FLO[address] [facility] 07/01/2024 10:2 1 AM MEDICAL ASSISTANT FLOAT us Timmy Gomez MD LABORATORY Final Result [facility] [address] [place] [address], * LIPID PANEL (08/23/2011 12:00 AM MEDICAL ASSISTANT FLOAT) TRIGLYCERIDES 92 20 - 199 MEDINF ORMATIX [...] Most Recently Relevant to Health Maintenance Insurance [facility] C/O PROVIDER SERVICES [employer] [id number] Care Teams Hay Sorter Relationship Specialty Start Date End Date Malika Sarmiento PA-C [address] [place] [phone] PCP - General PHYSICIAN PSYCHIATRIC AIDE 05/01/24
--- OUTSIDE RECORDS SUMMARY | 2024-09-18 18:56 | XMS_ITS | Clinical Summary ---
Author Organization [facility] Address [address] [place] [address] Care Team Providers Care Tobacco Curer Name Role Phone Benji Zeng MD Unavailable [phone] Source Comments [facility],non-owned Affiliates and Associated Physician Practices is amultiple site organization consisting of ambulatory clinics and hospital sitesin [place], [place], [place] and [place]. This disclosure is being madepursuant to the Care Everywhere program and may not contain all information available regarding this patient. Last updated 18.[facility] Social History Tobacco Use Types Packs/Day Years [...] age to complete this topic Care Teams Tobacco Curer Relationship Specialty Start Date End Date Benji Zeng MD [address] [place] [address] Hospitalist 12/25/23
--- OUTSIDE RECORDS SUMMARY | 2024-09-18 18:56 | XMS_ITS | Clinical Summary ---
Author Organization [facility] Address [address] [place] [address] Care Team Providers Care Radiation Engineer Name Role Phone Malika Sarmiento Primary Care Provider [phone] Allergies No known active allergies Medications aspirin [...] 2 diabetes mellitus ([facility]/HCC) 12/04/2023 Encounters Date Type Department Care Team Description 06/22/2024 3:20 PM MEDIA DIRECTOR - 06/22/2024 11:59 PM MEDIA DIRECTOR Hospital Encounter [address] [address] Stage 3b chronic kidney disease (CKD) (HCC); [...] Tobacco: Never Tobacco Cessation:Counseling Given: Not Answered [facility] Utilities Answer Date Recorded In the past 12 months has e [employer] gas, oil, or water [employer] threatened to shut off services in your [...] often do you attend chur ch or episcopalian services? More than 4 times per year 12/05/2023 Do you belong to any clubs o r organizations such as religion groups, unions, fraternal or athletic groups, or [...] place to sleep or slept in a assisted (including now)? No 12/05/2023 Personal Safety Answer Date Recorded Have you ever been in or are you currently in a harmful physical or emotional relationship or is someone making you feel afraid or unsafe? Denies 12/13/2023 Comments Unknown Sex and Gender Information Value Date Recorded Sex Assigned at Not on file Legal Sex Female 1:36 AM MEDIA DIRECTOR Gender Identity Not on file Sexual Orientation [...] Read Routine (OP Routine) 06/22/2024 4:14 PM MEDIA DIRECTOR Stage 3b chronic kidney disease (CKD) (HCC) Primary hypertension EGFR Routine 12/26/2023 9:26 AM CDT ALBUMIN CREATININE RATIO, URINE Routine 12/12/2023 2:20 PM CDT LIPID PANEL Routine 12/11/2023 3:34 AM CDT HEMOGLOBIN A1C STAT 12/04/2023 4:56 AM CDT from Last 3 Months or Most Recently Relevant to Health Maintenance Results * US Kidney Complete (06/22/2024 4:14 PM MEDIA DIRECTOR) Anatomical Region Laterality Modality Kidney N/A Ultrasound 06/25/2024 9:00 PM MEDIA DIRECTOR Narrative 06/25/2024 9:19 PM MEDIA DIRECTOR EXAM DESCRIPTION: US KIDNEY COMPLETE REASON FOR [...] Jamie Staley M.D. KT T: Report ID: [id number] Reading Location: [id number] Procedure Note Jamie Staley MD - 06/25/2024 [...] Jamie Staley M.D. KT T: Report ID: [id number] Reading Location: [place] [address] us Timmy Gomez MD IM US PROCEDURES [...] ORDERABLES Final Res ult Performing Organization Address [facility] Co de Phone Number SARAH [address] [address] * (ABNORMAL) Albumin Creatinine Ratio, Urine (12/12/2023 2:20 PM CDT) Albumin Ur 39.6 mg/L Comment: Interpretive Data No reference range established. Current interpretive data was last revised 2018. Creatinine Ur 20.1 mg/dL SARAH Comment: Interpretive Data No reference range established. Current interpretive data was last revised 2018. Albumin Creatinine Ratio, Ur 197(H) 1 - 29 mg/g SARHA Urine 12/12/2023 2:20 PM CDT 12/12/2023 2:26 PM CDT us Dick Hoff MD LAB URINE ORDERABLES Final Re sult Performing Organization Address [facility] Co de Phone Number [address] [address] * (ABNORMAL) Lipid panel (12/11/2023 3:34 AM [...] ORDERABLE S Final Result Performing Organization Address [facility] de Phone Number [facility] [address] [place] [address] * (ABNORMAL) Hemoglobin A1c (12/04/2023 4:56 AM CDT) Hgb A1C 12.9(H) 4.0 - 5.6 % Estimated Average Glucose 324 mg/dL SARAH Comment: The ADA recommends reporting an estimated Average Glucose (eAG) with all Hemoglobin A1c results using the equation derived from a study of 507 normal and diabetic adults. Minority populations were underrepresented and children were not included. (Diabetes Care 31:5203-8031, 2008). The eAG is not equivalent to a fasting glucose. Blood 12/04/2023 4:56 AM CDT 12/04/2023 5:04 AM CDT Ovidio Whitfield MD LAB BLOOD ORDERABLES Final Result Performing Organization Address [facility] Co de Phone Number [facility] [address] [place] [address] from Last 3 Months or Most Recently Relevant to Health Maintenance Insurance [facility] Advance Directives For more information, please contact: [phone] * Full Code (Latest Code Status on File) Date Activated Date Inactivated Comments 12/06/2023 4:12 PM 12/26/2023 8:17 PM Care Teams Radiation Engineer Relationship Specialty Start Date End Date Malika Sarmiento PA [address] [place] [address] PCP - General Physician Planning Rn 12/26/23
--- OUTSIDE RECORDS SUMMARY | 2024-09-18 18:56 | XMS_ITS | Encounter Summary ---
Author Organization [facility] Address [address] [place] [address] Care Team Providers Care Petrophysicist Name Role Phone Dianna Garcia MD Primary Care Provider [facility] Malika Sarmiento PA-C Primary Care Provider [phone] Encounter Details Date Type Department Care Team (Latest Contact Info) Description 06/03/2018 Abstract [facility] , Maxine Whipple MD Social History Tobacco Use Types Packs/Day Years Used Date Smoking Tobacco: Never Comments Unknown Sex and Gender Information Value Date Recorded Sex Assigned at Female 08/19/2024 1:31 PM VICE PRESIDENT COMPLIANCE Legal Sex Female 9:22 PM CDT Gender Identity Not on file Sexual Orientation Not on file documented as of this encounter Plan of Treatment Not on file documented as of this encounter Visit Diagnoses Not on filedocumented in this encounter Care Teams Petrophysicist Relationship Specialty Start Date End Date Dianna Garcia MD PCP - General 05/22/13 04/30/24 Malika Sarmiento PA-C [address] [place] [phone] PCP - General PHYSICIAN NURSE ASSESSOR 05/01/24 documented as of this encounter
--- OUTSIDE RECORDS SUMMARY | 2024-09-18 18:56 | XMS_ITS | Encounter Summary ---
Author Organization [facility] Address [address] [place] [address] Care Team Providers Care Bath Solution Maker Name Role Phone Benji Zeng MD Unavailable [phone] Reason for Referral * Consultation (Routine) - Denied Specialty Diagnoses / Procedures Referred By Contac t Referred To Contact Neurology Diagnoses Other specified polyneuropathies Malika Sarmiento PA-C [address] [place] [address] Job Knox MD [address] [place] [address] Referral ID Status Reason Start Date Expiration Date V isits Requested Visits Authorized [id number] Denied Specialty Services Required 06/17/2024 06/17/2025 1 0 AGE CUTTER Encounter Details Date Type Department Care Team (Latest Contact Info) Description 06/17/2024 Transcribe Orders [facility] - Centralized Scheduling [address] [place] [id number] Malika Sarmiento PA-C [address] [place] [address] Other specified polyneuropathies Social History Tobacco [...] Primary documented in this encounter Care Teams Bath Solution Maker Relationship Specialty Start Date End Date Benji Zeng MD [address] [address] Hospitalist 12/25/23 documented as of this encounter
--- OUTSIDE RECORDS SUMMARY | 2024-09-18 18:56 | XMS_ITS | Patient Health Summary ---
Author Organization [facility] Address [address] [place] [address] Care Team Providers Care Mva Reactor Operator Head Name Role Phone Benji Zeng MD Unavailable [phone] Note from [facility],non-owned Affiliates and Associated Physician Practices is amultiple site organization consisting of ambulatory clinics and hospital sitesin [place], [place], [place] and [place]. This disclosure is being madepursuant to the Care Everywhere program and may not contain all information available regarding this patient. Last updated 18.[facility] Social History Tobacco Use Types Packs/Day Years Used Date Smoking Tobacco: Never Assessed Sex and Gender Information Value Date Recorded Sex Assigned at Not on file Gender Identity Not on file Sexual Orientation Not on file Care Teams Mva Reactor Operator Head Relationship Specialty Start Date End Date Benji Zeng MD [address] [place] [address] Hospitalist 12/25/23
--- OUTSIDE RECORDS SUMMARY | 2024-09-18 18:56 | XMS_ITS | Clinical Summary ---
Author Organization [facility] Address [address] [place] [address] Phone Care Team Providers Care Director Of Marketing Operations Name Role Phone Malika Sarmiento Primary Care Provider [phone] Allergies No known active allergies Medications Medication [...] Department Care Team Description 06/18/2024 1:40 PM PRIVATE SECURITY GUARD Office Visit [facility] [address] [place] [address] Timmy Gomez MD Stage 3b chronic kidney [...] Comments Blood Pressure 138/77 06/18/2024 1:39 PM PRIVATE SECURITY GUARD Pulse 98 06/18/2024 1:39 PM PRIVATE SECURITY GUARD Temperature - - Respiratory Rate - - Oxygen Saturation - - Inhaled Oxygen Concentration - - Weight 66.2 kg (146 lb) 06/18/2024 1:39 PM PRIVATE SECURITY GUARD Height 165.1 cm (5' 5 ) 06/18/2024 1:39 PM PRIVATE SECURITY GUARD Body Mass Index 24.3 06/18/2024 1:39 PM PRIVATE SECURITY GUARD Plan of Treatment Upcoming Encounters Date Type Department Care Team (Late st Contact Info) Description 09/22/2024 1:20 PM PRIVATE SECURITY GUARD Office Visit [facility] [address] [facility] [facility] [place] [address] Timmy Gomez MD [address] [address] Health Maintenance Due Date Last Done Comments Diabetic Foot Exam 10/19/1975 Ophthalmology Exam 10/19/1975 Pneumococcal PPSV23 Highest Risk Adult (1 of 3 - PCV13 ) 1984 Influenza Vaccine (#1) 2024 Care Teams Director Of Marketing Operations Relationship Specialty Start Date End Date Malika Sarmiento PA [address] [place] [phone] PCP - General Family Medicine 06/16/24
--- OUTSIDE RECORDS SUMMARY | 2024-09-18 18:56 | XMS_ITS | Referral Summary ---
Author Organization [facility] Address [address] [place] [address] Care Team Providers Care Health And Safety Instructor Name Role Phone Benji Zeng MD Unavailable [phone] Source Comments [facility],non-[facility]iliates and Associated Physician Practices is amultiple site organization consisting of ambulatory clinics and hospital sitesin [place], [place] and [place]. This disclosure is being madepursuant to the Care Everywhere program and may not contain all information available regarding this patient. Last updated 18.[facility] Social History Tobacco Use Types Packs/Day Years Used Date Smoking Tobacco: Never Assessed Sex and Gender Information Value Date Recorded Sex Assigned at Not on file Gender Identity Not on file Sexual Orientation Not on file Plan of Treatment Not on file Care Teams Health And Safety Instructor Relationship Specialty Start Date End Date Benji Zeng MD [address] [place] [address] Hospitalist 12/25/23
--- OUTSIDE RECORDS SUMMARY | 2024-09-18 18:57 | XMS_ITS | Data Portability ---
Author Organization [facility] Address [address] [place] [address] Care Team Providers Care Aircraft Ordnance Technician Name Role Phone MALIKA CAMPBELL Primary Care Provider [phone] Assessment Encounter Date Assessment Date Assessment LastModified [...] cell count 7500, hemoglobin 9.5, platelet count 825750 iron binding capacity, iron and iron saturations are within normal limits, ferritin was elevated at 359 03/03/2024 cholesterol 150 triglycerides 203 HDL 36, LDL 80, white blood cell count 7400, hemoglobin 9.0, platelet count 054000 ECG performed on 04/22/2024 shows sinus rhythm [...] intact interatrial septum with no evidence of [id number] shunt normal left ventricular systolic function mildly [...] CMP, serum or plasma 2023 024 MEET [employer] [facility] (Lab), [address] [place], [address], 07/16/2024 14:11:40 glucose, fingerst ick, blood 2023 024 [email or web address] In-Office Order, Internal Use Only DO Not Attach Compendium DO Not Attach Compendium, Do Not Delete/merge, [id number] 07/13/2024 15:22:47 lipid panel, serum 2023 025 MEET [employer] [facility] (Lab), [address] [place], [address], 07/31/2024 21:22:48 CK (creatin e kinase), total, serum 2023 025 [facility] (Lab), [address], [place], [address], 07/31/2024 21:22:41 CMP, serum or plasma 2023 025 [facility] (Lab), [address], [place], [address], 07/31/2024 21:22:47 CBC 2023 025 [facility] (Lab), [address], [place], [address], 07/31/2024 21:17:25 HbA1c (hemoglo bin A1c), blood 2023 024 [email or web address] In-Office Order, Internal Use Only DO Not Attach Compendium DO Not Attach Compendium, Do Not Delete/merge, [id number] 06/09/2024 10:16:34 microalb umin/cre atinine, mass ratio, urine 2023 024 LAMPASAS [facility], [address], [facility] [address], [address], 06/10/2024 11:17:12 Referral neurolog ist referral 2023 024 [email or web address] [facility], [address] [facility], [facility] [address], [address], 09/07/2024 15:38:30 hematolo gist referral 2023 024 [email or web address] Fortune MD, [address] [facility], [address], 05/26/2024 07:57:57 Procedures lexiscan cardioli te stress test (PROC) 2023 024 [email or web address] [facility] - Central Scheduling, [address] [place], [address], 09/18/2024 14:59:21 upper endoscop y procedur e (EGD) (PROC) 2023 024 [facility] (Surgery Sched), [address] [place], [address], 05/05/2024 14:26:45 colonosc opy procedur e (PROC) [...] patient use a wheelcha ir?: N 2023 [facility] (Surgery Sched), [address] [place], [address], 05/05/2024 14:24:59 Surgeries None recorded . Imaging MRI, brain, w/o contrast [address] Scheduling, [place], [address], 08/28/2024 07:44:10 electrom yogram + nerve conducti on study - BILATERA L UPPER EXTREMIT IES [address] Scheduling, [place], [address], 05/20/2024 08:17:50 Medication Orders rosuvast atin 20 mg tablet [id number] [facility], [address], [place], [address], 06/17/2024 17:17:25 duloxeti ne 30 mg capsule, delayed release 2023 [facility], [address], [place], [address], 06/09/2024 10:27:33 Farxiga 10 mg tablet 2023 [facility], [address], [place], [address], 06/09/2024 10:28:46 Dulcolax (bisacod yl) 5 mg tablet,d elayed release 2023 [facility], [address], [place], [address], 05/05/2024 14:13:55 Miralax 17 gram/dos e oral powder 2023 [facility], [address], [place], [address], 05/05/2024 14:13:55 Patient TargetsNo targets recorded. Patient Instructions Encounter Date Encounter Id Patient Instructions Last Modified By Organization Details Last Modified Time 05/05/2024 [id number] RL About Your Colonoscopy 1 Day Prep [email or web address] Not available 05/05/2024 14:13:47 Reason for Referral [...] mg/dL 70-99 above high normal Not Available [facility] Department [address] [place] [address], [address], 04/09/2024 21:07:57 04/07/20 24 04/09/2024 COMP. METAB OLIC PANEL (14) BUN 19 mg/dL 6-24 Not Available [facility] Department [address] [place] [address], [address], 04/09/2024 21:07:57 04/07/20 24 04/09/2024 COMP. METAB OLIC PANEL (14) creatinine 1.37 mg/dL 0.76-1 .27 above high normal Not Available [facility] Department [address] [place] [address], [address], 04/09/2024 21:07:57 04/07/20 24 04/09/2024 COMP. METAB [...] disre génesis that value . Not Available [facility] Department [address] [place] [address], [address], 04/09/2024 21:07:57 04/07/20 24 04/09/2024 COMP. METAB OLIC PANEL (14) BUN/creatini ne ratio 14 9-23 Not Available [facility] Department [address] [place] [address], [address], 04/09/2024 21:07:57 04/07/20 24 04/09/2024 COMP. METAB OLIC PANEL (14) sodium 131 mmol/ L 134-14 4 below low normal Not Available [facility] Department [address] [place] [address], [address], 04/09/2024 21:07:57 04/07/20 24 04/09/2024 COMP. METAB OLIC PANEL (14) potassium 4.4 mmol/ L 3.5-5. 2 Not Available [facility] Department [address] [place], [address], 04/09/2024 21:07:57 04/07/20 24 04/09/2024 COMP. METAB OLIC PANEL (14) chloride 94 mmol/ L 96-106 below low normal Not Available [facility] [address] [place], [address], 04/09/2024 21:07:57 04/07/20 24 04/09/2024 COMP. METAB OLIC PANEL (14) carbon dioxide, total 27 mmol/ L 20-29 Not Available [facility] Department [address] [place], [address], 04/09/2024 21:07:57 04/07/20 24 04/09/2024 COMP. METAB OLIC PANEL (14) calcium 10.1 mg/dL 8.7-10 .2 Not Available [facility] Department [address] [place], [address], 04/09/2024 21:07:57 04/07/20 24 04/09/2024 COMP. METAB OLIC PANEL (14) protein, total 7.0 g/dL 6.0-8. 5 Not Available [facility] Department [address] [place], [address], 04/09/2024 21:07:57 04/07/20 24 04/09/2024 COMP. METAB OLIC PANEL (14) albumin 3.9 g/dL 3.8-4. 9 Not Available [facility] [address] [place], [address], 04/09/2024 21:07:57 04/07/20 24 04/09/2024 COMP. METAB OLIC PANEL (14) globulin, total 3.1 g/dL 1.5-4. 5 Not Available [facility] [address] [place] [address], [address], 04/09/2024 21:07:57 04/07/20 24 04/09/2024 COMP. METAB OLIC PANEL (14) A/G ratio 1.0 1.2-2. 2 below low normal Not Available [facility] [address] [place] [address], [address], 04/09/2024 21:07:57 04/07/20 24 04/09/2024 COMP. METAB OLIC PANEL (14) bilirubin, total 0.2 mg/dL 0.0-1. 2 Not Available [facility] [address] [place] [address], [address], 04/09/2024 21:07:57 04/07/20 24 04/09/2024 COMP. METAB OLIC PANEL (14) alkaline phosphatase 100 IU/L 44-121 Not Available [facility] Department [address] [place], [address], 04/09/2024 21:07:57 04/07/20 24 04/09/2024 COMP. METAB OLIC PANEL (14) AST (SGOT) 12 IU/L 0-40 Not Available [facility] Department [address] [place] [address], [address], 04/09/2024 21:07:57 04/07/20 24 04/09/2024 COMP. METAB OLIC PANEL (14) ALT (SGPT) 6 IU/L 0-32 Not Available [facility] Department [address] [place] [address], [address], 04/09/2024 21:07:57 04/07/20 24 04/09/2024 CBC WITH DIFFE RENTI AL/PL ATELE T WBC 7.5 x10e3 /uL 3.4-10 .8 Not Available [facility] [address] [place] [address], [address], 04/09/2024 21:07:58 04/07/20 24 04/09/2024 CBC WITH DIFFE RENTI AL/PL ATELE T RBC 3.35 x10e6 /uL 3.77-5 .28 below low normal Not Available [facility] Department [address] [place], [address], 04/09/2024 21:07:58 04/07/20 24 04/09/2024 CBC WITH DIFFE RENTI AL/PL ATELE T hemoglobin 9.5 g/dL 11.1-1 5.9 below low normal Not Available [facility] Department [address] [place], [address], 04/09/2024 21:07:58 04/07/2004/09/2024 CBC WITH DIFFE RENTI AL/PL ATELE T hematocrit 29.7 % 34.0-4 6.6 below low normal Not Available [facility] [address] [place] [address], [address], 04/09/2024 21:07:58 04/07/20 24 04/09/2024 CBC WITH DIFFE RENTI AL/PL ATELE T MCV 89 fL 79-97 Not Available [facility] [address] [place] [address], [address], 04/09/2024 21:07:58 04/07/20 24 04/09/2024 CBC WITH DIFFE RENTI AL/PL ATELE T MCH 28.4 pg 26.6-3 3.0 Not Available [facility] [address] [place] [address], [address], 04/09/2024 21:07:58 04/07/20 24 04/09/2024 CBC WITH DIFFE RENTI AL/PL ATELE T MCHC 32.0 g/dL 31.5-3 5.7 Not Available [facility] [address] [place] [address], [address], 04/09/2024 21:07:58 04/07/20 24 04/09/2024 CBC WITH DIFFE RENTI AL/PL ATELE T RDW 12.8 % 11.5-1 4.5 Not Available [facility] [address] [place], [address], 04/09/2024 21:07:58 04/07/2004/09/2024 CBC WITH DIFFE RENTI AL/PL ATELE T platelets 345 x10e3 /uL 150-45 0 Not Available [facility] [address] [place], [address], 04/09/2024 21:07:58 04/07/2004/09/2024 CBC WITH DIFFE RENTI AL/PL ATELE T neutrophils 62 % notest b. Not Available [facility] [address] [place] [address], [address], 04/09/2024 21:07:58 04/07/20 24 04/09/2024 CBC WITH DIFFE RENTI AL/PL ATELE T lymphs 30 % notest b. Not Available [facility] [address] [place] [address], [address], 04/09/2024 21:07:58 04/07/20 24 04/09/2024 CBC WITH DIFFE RENTI AL/PL ATELE T monocytes 6 % notest b. Not Available [facility] [address] [place] [address], [address], 04/09/2024 21:07:58 04/07/2004/09/2024 CBC WITH DIFFE RENTI AL/PL ATELE T eos 2 % notest b. Not Available [facility] [address] [place], [address], 04/09/2024 21:07:58 04/07/2004/09/2024 CBC WITH DIFFE RENTI AL/PL ATELE T basos 0 % notest b. Not Available [facility] Department [address] [place] [address], [address], 04/09/2024 21:07:58 04/07/20 24 04/09/2024 CBC WITH DIFFE RENTI AL/PL ATELE T neutrophils (absolute) 4.7 x10e3 /uL 1.4-7. 0 Not Available [facility] Department [address] [place], [address], 04/09/2024 21:07:58 04/07/20 24 04/09/2024 CBC WITH DIFFE RENTI AL/PL ATELE T lymphs (absolute) 2.2 x10e3 /uL 0.7-3. 1 Not Available [facility] Department [address] [place], [address], 04/09/2024 21:07:58 04/07/2004/09/2024 CBC WITH DIFFE RENTI AL/PL ATELE T monocytes(ab solute) 0.5 x10e3 /uL 0.1-0. 9 Not Available [facility] [address] [place], [address], 04/09/2024 21:07:58 04/07/20 24 04/09/2024 CBC WITH DIFFE RENTI AL/PL ATELE T eos (absolute) 0.1 x10e3 /uL 0.0-0. 4 Not Available [facility] [address] [place], [address], 04/09/2024 21:07:58 04/07/20 24 04/09/2024 CBC WITH DIFFE RENTI AL/PL ATELE T baso (absolute) 0.0 x10e3 /uL 0.0-0. 2 Not Available [facility] [address] [place], [address], 04/09/2024 21:07:58 04/07/2004/09/2024 CBC WITH DIFFE RENTI AL/PL ATELE T immature granulocytes 0.3 % notest b. Not Available [facility] [address] [place], [address], 04/09/2024 21:07:58 04/07/20 24 04/09/2024 CBC WITH DIFFE RENTI AL/PL ATELE T immature grans (abs) 0.0 x10e3 /uL 0.0-0. 1 Not Available [facility] [address] [place], [address], 04/09/2024 21:07:58 04/07/20 24 04/09/2024 CBC WITH DIFFE RENTI AL/PL ATELE T NRBC 0 % 0-0 Not Available [facility] [address] [place], [address], 04/09/2024 21:07:58 04/07/20 24 04/10/2024 IRON AND TIBC iron bind.cap.(TI BC) 263 ug/dL 250-45 0 Not Available [facility] ([facility]) [address] [place], [address], 04/10/2024 11:16:27 04/07/20 24 04/10/2024 IRON AND TIBC UIBC 213 ug/dL 131-42 5 Not Available [facility] ([facility]) [address] [place], [address], 04/10/2024 11:16:27 04/07/20 24 04/10/2024 IRON AND TIBC iron 50 ug/dL 27-159 Not Available [facility] ([facility]) [address] [place], [address], 04/10/2024 11:16:27 04/07/20 24 04/10/2024 IRON AND TIBC iron saturation 19 % 15-55 Not Available [facility] ([facility]) [address] [place], [address], 04/10/2024 11:16:27 04/07/20 24 04/10/2024 TONY TIN ferritin 359 NG/mL 15-150 above high normal Not Available [facility] ([facility]) [address] [place], [address], 04/10/2024 11:16:28 05/19/2005/19/2024 CREAT INE KINAS E creatine kinase 44 U/L 32-182 normal Not Available [facility] (Lab) [address], [place], [address], 05/19/2024 15:26:17 05/19/20 24 05/19/2024 COMPR EHENS THOMPSON METAB OLIC PANEL sodium 137 mmol/ L 134-14 4 normal Not Available [facility] (Lab) [address] [place], [address], 05/19/2024 15:36:39 05/19/2005/19/2024 COMPR EHENS THOMPSON METAB OLIC PANEL potassium 4.4 mmol/ L 3.5-5. 2 normal Not Available [facility] ([facility]) [address] [place], [address], 05/19/2024 15:36:39 05/19/2005/19/2024 COMPR EHENS THOMPSON METAB OLIC PANEL chloride 99 mmol/ L 96-106 normal Not Available [facility] ([facility]) [address] [place], [address], 05/19/2024 15:36:39 05/19/20 24 05/19/2024 COMPR EHENS THOMPSON METAB OLIC PANEL carbon dioxide 27 mmol/ L 20-29 normal Not Available [facility] ([facility]) [address] [place], [address], 05/19/2024 15:36:39 05/19/20 24 05/19/2024 COMPR EHENS THOMPSON METAB OLIC PANEL anion gap 15.0 mmol/ L Not Available [facility] (Lab) [address] [place], [address], 05/19/2024 15:36:39 05/19/20 24 05/19/2024 COMPR EHENS THOMPSON METAB OLIC PANEL blood urea nitrogen 29 mg/dL 6-24 high Not Available [facility] (Lab) [address], [place], [address], 05/19/2024 15:36:39 05/19/2005/19/2024 COMPR EHENS THOMPSON METAB OLIC PANEL creatinine 1.64 mg/dL 0.76-1 .27 high Not Available [facility] (Lab) [address], [place], [address], 05/19/2024 15:36:39 05/19/2005/19/2024 COMPR EHENS THOMPSON METAB OLIC PANEL glomerular filtration rate 36 mL/mi n/1 Not Available [facility] (Lab) [address], [place], [address], 05/19/2024 15:36:39 05/19/2005/19/2024 COMPR EHENS THOMPSON METAB OLIC PANEL BUN creatinine ratio 18 9-23 normal Not Available [facility] ([facility]) [address], [place], [address], 05/19/2024 15:36:39 05/19/20 24 05/19/2024 COMPR EHENS THOMPSON METAB OLIC PANEL glucose 130 mg/dL 70-99 high Not Available [facility] (Lab) [address], [place], [address], 05/19/2024 15:36:39 05/19/20 24 05/19/2024 COMPR EHENS THOMPSON METAB OLIC PANEL osmolality calculated 281 275-29 5 normal Not Available [facility] (Lab) [address] [place], [address], 05/19/2024 15:36:39 05/19/20 24 05/19/2024 COMPR EHENS THOMPSON METAB OLIC PANEL calcium 10.3 mg/dL 8.7-10 .2 high Not Available [facility] (Lab) [address] [place], [address], 05/19/2024 15:36:39 05/19/20 24 05/19/2024 COMPR EHENS THOMPSON METAB OLIC PANEL bilirubin total 0.2 mg/dL 0.0-1. 2 normal Not Available [facility] (Lab) [address] [place], [address], 05/19/2024 15:36:39 05/19/20 24 05/19/2024 COMPR EHENS THOMPSON METAB OLIC PANEL aspartate amino transferase 11 IU/L 0-40 normal Not Available [facility] ([facility]) [address] [place], [address], 05/19/2024 15:36:39 05/19/20 24 05/19/2024 COMPR EHENS THOMPSON METAB OLIC PANEL alanine aminotransfe rase 7 IU/L 0-32 normal Not Available [facility] (Lab) [address], [place], [address], 05/19/2024 15:36:39 05/19/20 24 05/19/2024 COMPR EHENS THOMPSON METAB OLIC PANEL total protein 7.8 g/dL 6.0-8. 5 normal Not Available [facility] (Lab) [address] [place], [address], 05/19/2024 15:36:39 05/19/20 24 05/19/2024 COMPR EHENS THOMPSON METAB OLIC PANEL albumin level 4.2 g/dL 3.8-4. 9 normal Not Available [facility] (Lab) [address] [place], [address], 05/19/2024 15:36:39 05/19/20 24 05/19/2024 COMPR EHENS THOMPSON METAB OLIC PANEL globulin 3.6 g/dL 1.5-4. 5 normal Not Available [facility] (Lab) [address] [place], [address], 05/19/2024 15:36:39 05/19/20 24 05/19/2024 COMPR EHENS THOMPSON METAB OLIC PANEL albumin globulin ratio 1.0 1.2-2. 2 low Not Available [facility] (Lab) [address] [place], [address], 05/19/2024 15:36:39 05/19/2005/19/2024 COMPR EHENS THOMPSON METAB OLIC PANEL alkaline phosphatase 78 IU/L 44-121 normal Not Available [facility] ([facility]) [address] [place], [address], 05/19/2024 15:36:39 05/19/2005/19/2024 LIPID PANEL triglyceride s 124 mg/dL 0-149 normal Not Available [facility] (Lab) [address] [place], [address], 05/19/2024 15:36:39 05/19/2005/19/2024 LIPID PANEL cholesterol 190 mg/dL 100-19 9 normal Not Available [facility] ([facility]) [address] [place], [address], 05/19/2024 15:36:39 05/19/2005/19/2024 LIPID PANEL LDL cholesterol 120 mg/dL 0-99 high Not Available [facility] ([facility]) [address] [place], [address], 05/19/2024 15:36:39 05/19/20 24 05/19/2024 LIPID PANEL VLDL cholesterol (calc) 25 mg/dL 5-40 normal Not Available [facility] (Lab) [address] [place], [address], 05/19/2024 15:36:39 05/19/20 24 05/19/2024 LIPID PANEL HDL cholesterol 52 mg/dL 40-999 normal Not Available [facility] ([facility]) [address] [place], [address], 05/19/2024 15:36:39 05/19/20 24 05/19/2024 LIPID PANEL LDL HDL ratio 2.3 0-3.2 normal Not Available [facility] (Lab) [address] [place], [address], 05/19/2024 15:36:39 05/19/20 24 05/19/2024 LIPID PANEL chol HDL ratio 4.0 mg/dL 0-4.4 normal Not Available [facility] (Lab) [address] [place], [address], 05/19/2024 15:36:39 06/09/20 24 06/10/2024 ALBUM IN/CR EAT RATIO , RANDO M UR creatinine, urine 91.0 mg/dL notest ab. Not Available [facility] ([facility]) [address], [place], [place], [address], 06/10/2024 11:17:12 06/09/20 24 06/10/2024 ALBUM IN/CR EAT RATIO , RANDO M UR albumin, urine 11.1 ug/mL notest ab. Not Available [facility] ([facility]) [address], [place], [place], [address], 06/10/2024 11:17:12 06/09/20 24 06/10/2024 ALBUM IN/CR EAT RATIO , RANDO M UR alb/creat ratio 12 mg/g_ creat 0-29 Caterina l: 0 - 29 Moder ately incre ased: 30 - 300 Sever perla incre ased: >300 Not Available [facility] ([facility]) [address], [place], [place], [address], 06/10/2024 11:17:12 06/09/20 24 06/09/2024 HbA1c (hemo globi n A1c), blood HbA1c 6.4% Not Available In-Office Order Internal Use Only DO Not Attach Compendium DO Not Attach Compendium, Do Not Delete/merge, [id number] 06/09/2024 10:15:23 06/19/20 24 06/19/2024 COMPL ETE BLOOD COUNT NO DIFF white blood count 5.8 x10e3 /uL 3.4-10 .8 normal Not Available [facility] (Lab) [address], [place], [address], 06/19/2024 14:26:45 06/19/20 24 06/19/2024 COMPL ETE BLOOD COUNT NO DIFF red blood count 4.14 x10e6 /uL 3.77-5 .28 normal Not Available [facility] (Lab) [address] [facility], [place], [address], 06/19/2024 14:26:45 06/19/20 24 06/19/2024 COMPL ETE BLOOD COUNT NO DIFF hemoglobin 11.9 g/dL 11.1-1 5.9 normal Not Available [facility] (Lab) [address] [facility], [place], [address], 06/19/2024 14:26:45 06/19/20 24 06/19/2024 COMPL ETE BLOOD COUNT NO DIFF hematocrit 35.6 % 34.0-4 6.6 normal Not Available [facility] (Lab) [address] [facility], [place], [address], 06/19/2024 14:26:45 06/19/20 24 06/19/2024 COMPL ETE BLOOD COUNT NO DIFF mean corpuscular volume 86 fL 79-97 normal Not Available [facility] ([facility]) [address] [facility], [place], [address], 06/19/2024 14:26:45 06/19/20 24 06/19/2024 COMPL ETE BLOOD COUNT NO DIFF mean corpuscular hemoglobin 28.7 pg 26.6-3 3.0 normal Not Available [facility] (Lab) [address] [facility], [place], [address], 06/19/2024 14:26:45 06/19/20 24 06/19/2024 COMPL ETE BLOOD COUNT NO DIFF mean corpuscular HGB conc 33.4 g/dL 31.5-3 5.7 normal Not Available [facility] ([facility]) [address] [facility], [place], [address], 06/19/2024 14:26:45 06/19/20 24 06/19/2024 COMPL ETE BLOOD COUNT NO DIFF red cell distribution width 12.5 % 11.5-1 4.5 normal Not Available [facility] (Lab) [address] [place], [address], 06/19/2024 14:26:45 06/19/20 24 06/19/2024 COMPL ETE BLOOD COUNT NO DIFF platelet count 266 x10e3 /uL 150-45 0 normal Not Available [facility] (Lab) [address] [place], [address], 06/19/2024 14:26:45 06/19/20 24 06/19/2024 COMPL ETE BLOOD COUNT NO DIFF mean platelet volume 8.5 fL 8.9-12 .7 low Not Available [facility] (Lab) [address] [place], [address], 06/19/2024 14:26:45 06/19/20 24 06/19/2024 COMPL ETE BLOOD COUNT NO DIFF nucleated red blood cells auto 0 % 0-0 normal Not Available [facility] (Lab) [address] [place], [address], 06/19/2024 14:26:45 06/19/20 24 06/19/2024 CREAT INE KINAS E creatine kinase 54 U/L 32-182 normal Not Available [facility] (Lab) [address] [place], [address], 06/19/2024 15:02:50 06/19/20 24 06/19/2024 COMPR EHENS THOMPSON METAB OLIC PANEL sodium 141 mmol/ L 134-14 4 normal Not Available [facility] (Lab) [address] [place], [address], 06/19/2024 16:35:27 06/19/20 24 06/19/2024 COMPR EHENS THOMPSON METAB OLIC PANEL potassium 3.9 mmol/ L 3.5-5. 2 Not Available [facility] (Lab) [address] [place], [address], 06/19/2024 16:35:27 06/19/20 24 06/19/2024 COMPR EHENS THOMPSON METAB OLIC PANEL chloride 103 mmol/ L 96-106 normal Not Available [facility] (Lab) [address] [place], [address], 06/19/2024 16:35:27 06/19/20 24 06/19/2024 COMPR EHENS THOMPSON METAB OLIC PANEL carbon dioxide 28 mmol/ L 20-29 normal Not Available [facility] ([facility]) [address] [place], [address], 06/19/2024 16:35:27 06/19/20 24 06/19/2024 COMPR EHENS THOMPSON METAB OLIC PANEL anion gap 14.0 mmol/ L Not Available [facility] (Lab) [address], [place], [address], 06/19/2024 16:35:27 06/19/20 24 06/19/2024 COMPR EHENS THOMPSON METAB OLIC PANEL blood urea nitrogen 18 mg/dL 6-24 normal Not Available [facility] (Lab) [address] [place], [address], 06/19/2024 16:35:27 06/19/20 24 06/19/2024 COMPR EHENS THOMPSON METAB OLIC PANEL creatinine 1.22 mg/dL 0.76-1 .27 normal Not Available [facility] (Lab) [address], [place], [address], 06/19/2024 16:35:27 06/19/20 24 06/19/2024 COMPR EHENS THOMPSON METAB OLIC PANEL glomerular filtration rate 51 mL/mi n/1 Not Available [facility] (Lab) [address] [place], [address], 06/19/2024 16:35:27 06/19/20 24 06/19/2024 COMPR EHENS THOM[facility]ON METAB OLIC PANEL BUN creatinine ratio 15 9-23 normal Not Available [facility] (Lab) [address] [place], [address], 06/19/2024 16:35:27 06/19/20 24 06/19/2024 COMPR EHENS THOMPSON METAB OLIC PANEL glucose 96 mg/dL 70-99 normal Not Available [facility] (Lab) [address] [place], [address], 06/19/2024 16:35:27 06/19/20 24 06/19/2024 COMPR EHENS THOMPSON METAB OLIC PANEL osmolality calculated 283 275-29 5 normal Not Available [facility] (Lab) [address] [place], [address], 06/19/2024 16:35:27 06/19/20 24 06/19/2024 COMPR EHENS THOMPSON METAB OLIC PANEL calcium 10.6 mg/dL 8.7-10 .2 high Not Available [facility] (Lab) [address] [place], [address], 06/19/2024 16:35:27 06/19/20 24 06/19/2024 COMPR EHENS THOMPSON METAB OLIC PANEL bilirubin total 0.3 mg/dL 0.0-1. 2 normal Not Available [facility] (Lab) [address] [facility], [place], [address], 06/19/2024 16:35:27 06/19/20 24 06/19/2024 COMPR EHENS THOMPSON METAB OLIC PANEL aspartate amino transferase 15 IU/L 0-40 normal Not Available [facility] (Lab) [address] [place], [address], 06/19/2024 16:35:27 06/19/20 24 06/19/2024 COMPR EHENS THOMPSON METAB OLIC PANEL alanine aminotransfe rase 14 IU/L 0-32 normal Not Available [facility] (Lab) [address] [place], [address], 06/19/2024 16:35:27 06/19/20 24 06/19/2024 COMPR EHENS THOMPSON METAB OLIC PANEL total protein 8.0 g/dL 6.0-8. 5 normal Not Available [facility] (Lab) [address] [place], [address], 06/19/2024 16:35:27 06/19/20 24 06/19/2024 COMPR EHENS THOMPSON METAB OLIC PANEL albumin level 4.4 g/dL 3.8-4. 9 normal Not Available [facility] (Lab) [address] [place], [address], 06/19/2024 16:35:27 06/19/20 24 06/19/2024 COMPR EHENS THOMPSON METAB OLIC PANEL globulin 3.6 g/dL 1.5-4. 5 normal Not Available [facility] (Lab) [address], [place], [address], 06/19/2024 16:35:27 06/19/20 24 06/19/2024 COMPR EHENS THOMPSON METAB OLIC PANEL albumin globulin ratio 1.0 1.2-2. 2 low Not Available [facility] (Lab) [address], [place], [address], 06/19/2024 16:35:27 06/19/20 24 06/19/2024 COMPR EHENS THOMPSON METAB OLIC PANEL alkaline phosphatase 68 IU/L 44-121 normal Not Available [facility] (Lab) [address] [place], [address], 06/19/2024 16:35:27 06/19/20 24 06/19/2024 LIPID PANEL triglyceride s 121 mg/dL 0-149 normal Not Available [facility] (Lab) [address] [place], [address], 06/19/2024 16:35:29 06/19/20 24 06/19/2024 LIPID PANEL cholesterol 145 mg/dL 100-19 9 normal Not Available [facility] (Lab) [address] [place], [address], 06/19/2024 16:35:29 06/19/20 24 06/19/2024 LIPID PANEL LDL cholesterol 73 mg/dL 0-99 normal Not Available [facility] (Lab) [address] [place], [address], 06/19/2024 16:35:29 06/19/20 24 06/19/2024 LIPID PANEL VLDL cholesterol (calc) 24 mg/dL 5-40 normal Not Available [facility] (Lab) [address] [facility], [place], [address], 06/19/2024 16:35:29 06/19/20 24 06/19/2024 LIPID PANEL HDL cholesterol 55 mg/dL 40-999 normal Not Available [facility] (Lab) [address] [facility], [place], [address], 06/19/2024 16:35:29 06/19/20 24 06/19/2024 LIPID PANEL LDL HDL ratio 1.3 0-3.2 normal Not Available [facility] (Lab) [address] [facility], [place], [address], 06/19/2024 16:35:29 06/19/20 24 06/19/2024 LIPID PANEL chol HDL ratio 3.0 mg/dL 0-4.4 normal Not Available [facility] (Lab) [address] [facility], [place], [address], 06/19/2024 16:35:29 07/13/20 24 07/13/2024 gluco se, finge rstic k, blood Blood Glucose: mg/dl 211 Not Available In-Off ice Order Internal Use Only DO Not Attach Compendium DO Not Attach Compendium, Do Not Delete/merge, [id number] 07/13/2024 14:49:09 07/14/20 24 07/15/2024 COMP. METAB OLIC PANEL (14) glucose 169 mg/dL 70-99 above high normal Not Available [facility] ([facility]) [address], [place], [place], [address], 07/16/2024 14:11:40 07/14/20 24 07/15/2024 COMP. METAB OLIC PANEL (14) BUN 25 mg/dL 6-24 above high normal Not Available [facility] ([facility]) [address], [place], [address], 07/16/2024 14:11:40 07/14/20 24 07/15/2024 COMP. METAB OLIC PANEL (14) creatinine 1.56 mg/dL 0.57-1 .00 above high normal Not Available [facility] ([facility]) [address], [place], [place], [address], 07/16/2024 14:11:40 07/14/20 24 07/15/2024 COMP. METAB OLIC PANEL (14) eGFR 38 mL/mi n/1.7 3 >59 below low normal Not Available [facility] ([facility]) [address] [place], [address], 07/16/2024 14:11:40 07/14/20 24 07/15/2024 COMP. METAB OLIC PANEL (14) BUN/creatini ne ratio 16 9-23 Not Available [facility] ([facility]) [address] [place], [address], 07/16/2024 14:11:40 07/14/20 24 07/15/2024 COMP. METAB OLIC PANEL (14) sodium 141 mmol/ L 134-14 4 Not Available [facility] ([facility]) [address] [place], [address], 07/16/2024 14:11:40 07/14/20 24 07/15/2024 COMP. METAB OLIC PANEL (14) potassium 4.4 mmol/ L 3.5-5. 2 Not Available [facility] ([facility]) [address] [place], [address], 07/16/2024 14:11:40 07/14/20 24 07/15/2024 COMP. METAB OLIC PANEL (14) chloride 104 mmol/ L 96-106 Not Available [facility] ([facility]) [address], [place], [address], 07/16/2024 14:11:40 07/14/20 24 07/15/2024 COMP. METAB OLIC PANEL (14) carbon dioxide, total 25 mmol/ L 20-29 Not Available [facility] ([facility]) [address], [place], [address], 07/16/2024 14:11:40 07/14/20 24 07/15/2024 COMP. METAB OLIC PANEL (14) calcium 10.1 mg/dL 8.7-10 .2 Not Available [facility] ([facility]) [address], [place], [place], [address], 07/16/2024 14:11:40 07/14/20 24 07/15/2024 COMP. METAB OLIC PANEL (14) protein, total 7.1 g/dL 6.0-8. 5 Not Available [facility] ([facility]) [address], [place], [address], 07/16/2024 14:11:40 07/14/20 24 07/15/2024 COMP. METAB OLIC PANEL (14) albumin 4.4 g/dL 3.8-4. 9 Not Available [facility] ([facility]) [address], [place], [address], 07/16/2024 14:11:40 07/14/20 24 07/15/2024 COMP. METAB OLIC PANEL (14) globulin, total 2.7 g/dL 1.5-4. 5 Not Available [facility] ([facility]) [address], [place], [address], 07/16/2024 14:11:40 07/14/20 24 07/15/2024 COMP. METAB OLIC PANEL (14) bilirubin, total <0.2 mg/dL 0.0-1. 2 Not Available [facility] ([facility]) [address], [place], [place], [address], 07/16/2024 14:11:40 07/14/20 24 07/15/2024 COMP. METAB OLIC PANEL (14) alkaline phosphatase 66 IU/L 44-121 Not Available [facility] ([facility]) [address], [place], [place], [address], 07/16/2024 14:11:40 07/14/20 24 07/15/2024 COMP. METAB OLIC PANEL (14) AST (SGOT) 16 IU/L 0-40 Not Available [facility] ([facility]) [address], [place], [place], [address], 07/16/2024 14:11:40 07/14/20 24 07/15/2024 COMP. METAB OLIC PANEL (14) ALT (SGPT) 12 IU/L 0-32 Not Available [facility] ([facility]) [address], [place], [place], [address], 07/16/2024 14:11:40 07/31/19 25 07/31/2024 COMPL ETE BLOOD COUNT NO DIFF white blood count 7.1 x10e3 /uL 3.4-10 .8 normal Not Available [facility] (Lab) [address] [place], [address], 07/31/2024 21:17:25 07/31/19 25 07/31/2024 COMPL ETE BLOOD COUNT NO DIFF red blood count 3.85 x10e6 /uL 3.77-5 .28 normal Not Available [facility] (Lab) [address] [facility], [place], [address], 07/31/2024 21:17:25 07/31/19 25 07/31/2024 COMPL ETE BLOOD COUNT NO DIFF hemoglobin 11.1 g/dL 11.1-1 5.9 normal Not Available [facility] (Lab) [address] [place], [address], 07/31/2024 21:17:25 07/31/19 25 07/31/2024 COMPL ETE BLOOD COUNT NO DIFF hematocrit 34.1 % 34.0-4 6.6 normal Not Available [facility] (Lab) [address] [facility], [place], [address], 07/31/2024 21:17:25 07/31/19 25 07/31/2024 COMPL ETE BLOOD COUNT NO DIFF mean corpuscular volume 89 fL 79-97 normal Not Available [facility] (Lab) [address] [facility], [place], [address], 07/31/2024 21:17:25 07/31/19 25 07/31/2024 COMPL ETE BLOOD COUNT NO DIFF mean corpuscular hemoglobin 28.8 pg 26.6-3 3.0 normal Not Available [facility] (Lab) [address] [facility], [place], [address], 07/31/2024 21:17:25 07/31/19 25 07/31/2024 COMPL ETE BLOOD COUNT NO DIFF mean corpuscular HGB conc 32.6 g/dL 31.5-3 5.7 normal Not Available [facility] (Lab) [address] [facility], [place], [address], 07/31/2024 21:17:25 07/31/19 25 07/31/2024 COMPL ETE BLOOD COUNT NO DIFF red cell distribution width 12.6 % 11.5-1 4.5 normal Not Available [facility] (Lab) [address] [place], [address], 07/31/2024 21:17:25 07/31/19 25 07/31/2024 COMPL ETE BLOOD COUNT NO DIFF platelet count 259 x10e3 /uL 150-45 0 normal Not Available [facility] (Lab) [address] [place], [address], 07/31/2024 21:17:25 07/31/19 25 07/31/2024 COMPL ETE BLOOD COUNT NO DIFF mean platelet volume 9.7 fL 8.9-12 .7 normal Not Available [facility] (Lab) [address] [place], [address], 07/31/2024 21:17:25 07/31/19 25 07/31/2024 COMPL ETE BLOOD COUNT NO DIFF nucleated red blood cells auto 0 % 0-0 normal Not Available [facility] (Lab) [address] [place], [address], 07/31/2024 21:17:25 07/31/19 25 07/31/2024 CREAT INE KINAS E creatine kinase 47 U/L 32-182 normal Not Available [facility] (Lab) [address], [place], [address], 07/31/2024 21:22:41 07/31/19 25 07/31/2024 COMPR EHENS THOMPSON METAB OLIC PANEL sodium 142 mmol/ L 134-14 4 normal Not Available [facility] (Lab) [address] [place], [address], 07/31/2024 21:22:47 07/31/19 25 07/31/2024 COMPR EHENS THOMPSON METAB OLIC PANEL potassium 3.4 mmol/ L 3.5-5. 2 low Not Available [facility] (Lab) [address] [place], [address], 07/31/2024 21:22:47 07/31/19 25 07/31/2024 COMPR EHENS THOMPSON METAB OLIC PANEL chloride 101 mmol/ L 96-106 normal Not Available [facility] (Lab) [address] [place], [address], 07/31/2024 21:22:47 07/31/19 25 07/31/2024 COMPR EHENS THOMPSON METAB OLIC PANEL carbon dioxide 29 mmol/ L 20-29 normal Not Available [facility] (Lab) [address] [place], [address], 07/31/2024 21:22:47 07/31/19 25 07/31/2024 COMPR EHENS THOMPSON METAB OLIC PANEL anion gap 15.0 mmol/ L Not Available [facility] (Lab) [address] [place], [address], 07/31/2024 21:22:47 07/31/19 25 07/31/2024 COMPR EHENS THOMPSON METAB OLIC PANEL blood urea nitrogen 29 mg/dL 6-24 high Not Available [facility] (Lab) [address], [place], [address], 07/31/2024 21:22:47 07/31/19 25 07/31/2024 COMPR EHENS THOMPSON METAB OLIC PANEL creatinine 1.78 mg/dL 0.76-1 .27 high Not Available [facility] (Lab) [address], [place], [address], 07/31/2024 21:22:47 07/31/19 25 07/31/2024 COMPR EHENS THOMPSON METAB OLIC PANEL glomerular filtration rate 33 mL/mi n/1 Not Available [facility] (Lab) [address] [place], [address], 07/31/2024 21:22:47 07/31/19 25 07/31/2024 COMPR EHENS THOMPSON METAB OLIC PANEL BUN creatinine ratio 16 9-23 normal Not Available [facility] (Lab) [address] [place], [address], 07/31/2024 21:22:47 07/31/19 25 07/31/2024 COMPR EHENS THOMPSON METAB OLIC PANEL glucose 138 mg/dL 70-99 high Not Available [facility] (Lab) [address] [place], [address], 07/31/2024 21:22:47 07/31/19 25 07/31/2024 COMPR EHENS THOMPSON METAB OLIC PANEL osmolality calculated 291 275-29 5 normal Not Available [facility] (Lab) [address] [place], [address], 07/31/2024 21:22:47 07/31/19 25 07/31/2024 COMPR EHENS THOMPSON METAB OLIC PANEL calcium 10.5 mg/dL 8.7-10 .2 high Not Available [facility] (Lab) [address], [place], [address], 07/31/2024 21:22:47 07/31/19 25 07/31/2024 COMPR EHENS THOMPSON METAB OLIC PANEL bilirubin total 0.3 mg/dL 0.0-1. 2 normal Not Available [facility] (Lab) [address], [place], [address], 07/31/2024 21:22:47 07/31/19 25 07/31/2024 COMPR EHENS THOMPSON METAB OLIC PANEL aspartate amino transferase 13 IU/L 0-40 normal Not Available [facility] (Lab) [address], [place], [address], 07/31/2024 21:22:47 07/31/19 25 07/31/2024 COMPR EHENS THOMPSON METAB OLIC PANEL alanine aminotransfe rase 13 IU/L 0-32 normal Not Available [facility] (Lab) [address], [place], [address], 07/31/2024 21:22:47 07/31/19 25 07/31/2024 COMPR EHENS THOMPSON METAB OLIC PANEL total protein 7.3 g/dL 6.0-8. 5 normal Not Available [facility] (Lab) [address] [place], [address], 07/31/2024 21:22:47 07/31/19 25 07/31/2024 COMPR EHENS THOMPSON METAB OLIC PANEL albumin level 4.2 g/dL 3.8-4. 9 normal Not Available [facility] (Lab) [address] [place], [address], 07/31/2024 21:22:47 07/31/19 25 07/31/2024 COMPR EHENS THOMPSON METAB OLIC PANEL globulin 3.1 g/dL 1.5-4. 5 normal Not Available [facility] (Lab) [address] [place], [address], 07/31/2024 21:22:47 07/31/19 25 07/31/2024 COMPR EHENS THOMPSON METAB OLIC PANEL albumin globulin ratio 1.0 1.2-2. 2 low Not Available [facility] (Lab) [address] [place], [address], 07/31/2024 21:22:47 07/31/19 25 07/31/2024 COMPR EHENS THOMPSON METAB OLIC PANEL alkaline phosphatase 68 IU/L 44-121 normal Not Available [facility] (Lab) [address], [place], [address], 07/31/2024 21:22:47 07/31/19 25 07/31/2024 LIPID PANEL triglyceride s 120 mg/dL 0-149 normal Not Available [facility] (Lab) [address] [place], [address], 07/31/2024 21:22:48 07/31/19 25 07/31/2024 LIPID PANEL cholesterol 153 mg/dL 100-19 9 normal Not Available [facility] (Lab) [address] [place], [address], 07/31/2024 21:22:48 07/31/19 25 07/31/2024 LIPID PANEL LDL cholesterol 80 mg/dL 0-99 normal Not Available [facility] ([facility]) [address] [place], [address], 07/31/2024 21:22:48 07/31/19 25 07/31/2024 LIPID PANEL VLDL cholesterol (calc) 24 mg/dL 5-40 normal Not Available [facility] (Lab) [address] [place], [address], 07/31/2024 21:22:48 07/31/19 25 07/31/2024 LIPID PANEL HDL cholesterol 45 mg/dL 40-999 normal Not Available [facility] (Lab) [address] [place], [address], 07/31/2024 21:22:48 07/31/19 25 07/31/2024 LIPID PANEL LDL HDL ratio 1.8 0-3.2 normal Not Available [facility] (Lab) [address] [place], [address], 07/31/2024 21:22:48 07/31/19 25 07/31/2024 LIPID PANEL chol HDL ratio 3.0 mg/dL 0-4.4 normal Not Available [facility] (Lab) [address] [facility], [place], [address], 07/31/2024 21:22:48 04/22/20 24 04/22/2024 elect rocar diogr am No observ ation record ed. LAMPASAS In-Office Order Internal Use Only DO Not Attach Compendium DO Not Attach Compendium, Do Not Delete/merge, [id number] 04/22/2024 16:25:40 04/22/20 elect rocar diogr am No observ ation record ed. [email or web address] Not Available 04/22 16:25:40 05/03/20 24 05/01/2024 CT, coron matti calci um score No observ ation record ed. [facility] [address] [place], [address], 05/05/2024 11:34:43 05/25/20 24 05/25/2024 elect romyo gram + nerve condu ction study No observ ation record ed. [address], [address], 06/09/2024 10:17:43 05/27/20 24 05/25/2024 elect romyo gram + nerve condu ction study No observ ation record ed. [facility] [address] [facility], [place], [address], 05/29/2024 11:00:25 09/02/19 25 09/02/2024 MRI, brain , w/o contr ast No observ ation record ed. [facility] [address] [facility], [place], [address], 09/07/2024 15:39:16 09/18/19 25 09/18/2024 imagi ng/di agnos tic resul t No observ ation record ed. [facility] [address], [place], [address], 09/18/2024 17:23:36 Result Notes None recorded. Problems Name Problem SNOMED Code Status Onset Date Resolution Date Notes Provider Name and Address Organization Details Recorded Time Diabetes mellitus 21120171 Active 2023 Brandi Muniz MA null, [place] - [place] 4 11:30:44 Hypertensive disorder 30388364 Active 2023 Brandi Muniz [place] null, [place] - [facility] 4 11:30:50 Cerebrovascula r accident 598830540 Active 2023 CAMI WILLARD Attn: Nuris dangelo,[address] [facility], [place], [address], [facility] - SI 4 19:29:41 Iron deficiency anemia 77519529 Active 2023 CAMI WILLARD Attn: Nuris dangelo,[address] [facility], [place], [address], [facility] - SIF 4 10:01:29 Type 2 diabetes mellitus without complication 419040666 Active 2023 CAMI WILLARD Attn: Nursi dangelo,[address] [facility], [place], [address], [facility] - SIF 4 19:29:34 Mixed hyperlipidemia 266625792 Active 2023 Maxine Carrasco MD Attn: Nuris dangelo[address] [facility], [place], [address], [place] - [facility] 4 16:16:32 Bilateral lower leg edema 407904182 Active 2023 Maxine Carrasco MD Attn: Nuris dangelo,[address] [facility], [place], [address], [place] [facility] 4 16:16:33 History of cerebrovascula r accident 602328437 Active 2023 CAMI WILLARD Attn: Nuris dangelo,[address] [facility], [place], [address], [place] [facility] 4 10:25:06 Essential hypertension 80206510 Active 2023 CAMI WILLARD Attn: Nuris dangelo,[address] [facility], [place], [address], [place] [facility] 4 10:28:25 Mixed sensory-motor polyneuropathy 2551058 Active 2023 CAMI WILLARD Attn: Nuris dangelo,[address] [facility], [place], [address], [place] - [facility] 4 11:01:14 Anemia of chronic disease 028420496 Active 2023 CAMI WILLARD Attn: Nuris dangelo,[address] [facility], [place], [address], [place] [facility] 4 10:23:22 Calcification of coronary artery 729683217 Active 2023 Maxine Carrasco MD Attn: Varghesebetty dangelo,[address] [facility], [place], [address], [place] - [facility] 4 17:00:34 Anemia 489630944 Active 2023 Maxine Carrasco MD Attn: Nuris antolin,[address] [facility], [place], [address], [place] - [facility] 4 17:04:14 Problem Notes None recorded. Procedures Surgical History Date Name Laterality Status Provider Name and Address Organization Details Recorded Time section completed Brandi Muniz [place] [facility] 03/03/2024 11:32:19 Imaging Results Imaging Date Name Status LastModified by Organization Details LastModified Time 04/22/2024 electrocardiogram completed LAMPASAS In-Offi ce Order Internal Use Only DO Not Attach Compendium DO Not Attach Compendium, Do Not Delete/merge, [id number] 04/22/2024 16:25:40 04/22/2024 electrocardiogram completed [email or web address] Informa tion not available 04/22/2024 16:25:40 05/01/2024 CT, coronary calcium score completed [address], [address], 05/05/2024 11:34:43 05/25/2024 electromyogram + nerve conduction study completed [address] [place], [address], 06/09/2024 10:17:43 05/25/2024 electromyogram + nerve conduction study completed [facility] [address] [place], [address], 05/29/2024 11:00:25 09/02/2024 MRI, brain, w/o contrast completed [address], [address], 09/07/2024 15:39:16 09/18/2024 imaging/diagnostic result active [place] [id number], [address], 09/18/2024 17:23:36 Procedure Notes None recorded. Medical Equipment None [...] Not Available No t Available amoxicillin 875 mg-potassiu m clavulanate 125 mg tablet TAKE 1 [...] Updated DateTime 4 165.1 cm 24.6 kg/m2 70397.5 9 g 92 /min 98.8 [degF] 141 mm[Hg] 82 mm[Hg] Kayla Syed [place] - [facility] 10/08/202 4 12:26:26 Date Recorded Body height Body mass index (BMI) Body weight Oxygen saturation Oxygen saturation in Arterial blood by Pulse oximetry Heart rate Respiratory rate Systolic blood pressure Diastolic blood pressure Provider Name and Address Organization Details Last Updated DateTime 4 165.1 cm 24.6 kg/m2 56869.3 7 g 98 % 98 % 80 /min 18 /min 107 mm[Hg] 66 mm[Hg] Brandi Muniz MA [facility] 4 10:05:00 Date Recorded Body height Body mass index (BMI) Body weight Oxygen saturation Oxygen saturation in Arterial blood by Pulse oximetry Heart rate Respiratory rate Systolic blood pressure Diastolic blood pressure Provider Name and Address Organization Details Last Updated DateTime 4 165.1 cm 24.3 kg/m2 63716.4 9 g 100 % 100 % 99 /min 18 /min 95 mm[Hg] 62 mm[Hg] Terri Rich MA [facility] 4 10:11:48 Date Recorded Body height Body mass index (BMI) Body weight Heart rate Oxygen saturation Oxygen saturation in Arterial blood by Pulse oximetry Systolic blood pressure Diastolic blood pressure Provider Name and Address Organization Details Last Updated DateTime 4 165.1 cm 23.8 kg/m2 79524.7 1 g 95 /min 98 % 98 % 102 mm[Hg] 60 mm[Hg] Lili Nicole MA [facility] 4 16:25:17 Date Recorded Body height Body mass index (BMI) Body weight Oxygen saturation Oxygen saturation in Arterial blood by Pulse oximetry Heart rate Respiratory rate Body temperature Systolic blood pressure Diastolic blood pressure Provider Name and Address Organization Details Last Updated DateTime 4 165.1 cm 23.8 kg/m2 86311.1 1 g 98 % 98 % 94 /min 18 /min 98.2 [degF] 106 mm[Hg] 65 mm[Hg] Lolly Mares MA [facility] 4 14:22:58 Social History Question Answer Notes LastModified by Organizat ion Details LastModified Time Tobacco Smoking Status Never Smoker Brandi Muniz MA null, [facility] 03/03/2024 11:32:12 Do You Have An Advance [...] Or The Highest Degree You Have Received? [id number] Information not available 05/05/2024 Do You Have A Medical Power Of Production Artist? No Information not available 05/05/2024 What Was [...] Has Tobacco Cessation Counseling Been Provided? Yes [email or web address] Information not available 03/03/2024 On What Date [...] SNOMED-CT Code Diagnosis ICD10 Code Diagnosis Note [id number] CAMI WILLARD [facility] [address] [place] [address] 03/03/2024 11:22:07 03/03/2024 12:03:53 Type 2 diabetes mellitus without complication 086758416 E11.9 a1c today 7.8has insulin [place] and [place] how much insulin or BS numbers, son does all of [facility] ed to bring BS log at f/u appt in 1 mo Long-term drug therapy [id number] Z79.899 routine labs Hospital i npatient stay within past 30 days [id number] 106 Z76.89 Admitted to [facility] 12/04/23 to 12/26/23DKA : sugar 800 - [...] referrals at f/u visit Depression screening 171 993495 Z13.31 PHQ 0 History of cerebrovascular accident [id number] Z86.73 per patient, mini stroke on L sidedeclin es deficitsgo ing to PT once a week [id number] Terri Rich MA [facility] [address] [place] [address] 03/06/2024 12:34:59 03/06/2024 14:23:56 [id number] Terri Rich MA [facility] [address] [place] [address] 03/17/2024 11:18:59 03/17/2024 11:27:07 Adult health examination 470115092 Z00.00 [id number] CAMI WILLARD [facility] [address] [place] [address] 04/07/2024 09:38:19 04/07/2024 10:25:56 Iron deficiency anemia 47187873 D50.9 per admission- anemia was secondary to [...] Type 2 eboni betes mellitus without complication 450606299 E11.9 04/07/24: avg BS before bed 300only [...] numbers, [facility] to bring BS log at f/u appt in 1 mo Depression screening 171 392067 Z13.31 PHQ 0 Left atria l enlargement [id number] 9109 I51.7 per [facility] admissiona cute on chronic diastolic CHFrefer to cardio Serum crea tinine above reference range 357668083 R79.89 03/03/24: Cr 1.52, eGFR 40recheck today Screening for malignant neoplasm of breast 751754018 Z12.39 pt declined [id number] Terri Rich MA [facility] [address] [place] [address] 04/09/2024 12:28:41 04/09/2024 14:07:03 [id number] Maxine Carrasco MD [facility] [address] [place] [address] 04/22/2024 15:15:25 04/27/2024 10:29:21 Cardiomegaly 1546701 I51.7 Essential hypertension 09667545 I10 History of cerebrovascular accident 005457531 Z86.73 Mixed hyperlipidemia 267 680707 E78.2 Bilateral lower leg edema 696719871 R60.0 Type 2 eboni betes mellitus without complication 906575820 E11.9 [id number] MERVAT ALMANZA [facility] [address] [place] [address] 05/05/2024 12:17:07 05/06/2024 08:17:42 Anemia 040658513 D64.9 on PO iron, Hgb remains around 9-9.5CBC and CMP in chart 04/07/2024 [id number] CAMI WILLARD [facility] [address] [place] [address] 05/08/2024 09:59:12 05/08/2024 10:47:22 Cardiomegaly 1097546 I51.7 following with Cardioorde red echo and CT calcium score Type 2 eboni betes mellitus without complication 328376454 E11.9 05/08/24: BS fasting 167, before bed [...] numbers, [facility] all of [facility] ed to bring BS log at f/u appt in 1 mo Iron defic iency anemia 15183291 D50.9 05/05/24- saw GI, rec'd colonoscop yrefer [...] other causes of anemia Influenza vaccination declined 834599165 Z28.21 Pneumococc al vaccination declined 996155584 Z28.21 Serum crea tinine above reference range 129047058 R79.89 05/08/24: printed off referral and encouraged pt to call to schedule appt 04/14/24: Cr 1.36, eGFR 45refer to nephrology 8/6/24: Cr 1.52, eGFR 40recheck today Paresthesi a of bilateral hands 937349767 R20.2 since 11/2023numb ness/tingl ing/throbb ing to bilateral handsPEx- nlordered EMG bilat UE Depression screening 171 275231 Z13.31 PHQ 0 [id number] Maxine Carrasco MD [facility] [address] [place] [address] 06/17/2024 15:47:41 06/18/2024 17:37:40 Cerebrovascular accident 669790549 I63.9 Essential hypertension 91648645 I10 History of cerebrovascular accident 915362154 Z86.73 Mixed hyperlipidemia 267 844183 E78.2 Bilateral lower leg edema 740860097 R60.0 Calcificat ion of coronary artery 085871053 I25.84 Anemia 367411534 D64.9 [id number] CAMI WILLARD [facility] [address] [place] [address] 06/09/2024 10:03:11 06/09/2024 10:33:34 Type 2 diabetes mellitus without complication 328016589 E11.9 06/09/24: a1c today 6.4last a1c 7.8decreas [...] mo Serum crea tinine above reference range 253330308 R79.89 06/09/24: has appt 06/18/24 05/08/24: printed off referral and encouraged pt to call to schedule appt 04/14/24: Cr 1.36, eGFR 45refer to nephrology 03/03/24: Cr 1.52, eGFR 40recheck today Depression screening 171 752391 Z13.31 PHQ 0 Mixed sens ory-motor polyneuropathy 6181046 G62.89 found on EMG BUE 4ref er to neurology- printed off referral and encouraged pt to call to schedule apptwants to try something for nerve pain to hands, trial cymbalta, advised pt of ADR Anemia of chronic disease 805190212 D63.8 upcoming colonoscop y and EGD, needs cardiac clearance due to pt taking plavixiron labs nlrefer to hematology - printed off referral and encouraged pt to call to schedule appt History of cerebrovascular accident 288270155 Z86.73 per patient, mini stroke on L sidedeclin [facility] shower chair [id number] CAMI APPIAH [facility] [address] [place] [address] 07/13/2024 13:54:44 07/13/2024 16:01:02 Type 2 diabetes mellitus 37097991 E11.9 -BS 211 after recent food intake-Con tinue medication s as prescribed . Monitor BS and notify office if readings <100 or >200.-Foll ow up with PCP as scheduled Epilepsy 26154460 G40.90 9 -Hx CVA-Concer n for absence [...] even if symptoms resolve spontaneou sly Hypercalcemia 77302825 E 83.52 -Previous CMP with slightly elevated calcium at 10.6-Will repeat today to reassess Health Concerns Section Related Observation LastModified by Organization Detai ls LastModified Time None Recorded Concern Status LastModified by Organization Details LastModified Time None Recorded Advance Directives Directive N: Payers Encounter Date Sequence Insurance Name Policy Number Policy Diana Covered Member ID Diana Member ID Guarantor Name 05/05/2024 1 [place] [facility] (MEDICAID REPLACEMENT - HMO) [id number] Neetu Thakkar [id number] Neetu Thakkar 05/08/2024 1 [place] [facility] [place]ACEMENT - [place]) [id number] Neetu Thakkar [id number] Neetu Thakkar 06/09/2024 1 [place] [facility] ([place]ID RE[place]ACEMENT - [place]) [id number] Neetu Bijan [id number] Neetu [place] Thakkar 06/17/2024 1 [place] [facility] ([place]ID REPLACEMENT - [place]MO) [id number] Neetu Bijan [id number] Neetu Kokoette Bijan 07/13/2024 1 [place] [facility] ([place]ID RE[place]ACEMENT - [place]MO) [id number] Neetu Thakkar [id number] Neetu [place] Thakkar Notes Date Note Type Note Provider Name and Address Organization Details Recorded Time 05/05/2024 text/html Patient presents today for evaluation of anemia. States she's on PO iron and continues to have anemia. Has had ~3 epsiodes of hematochezia over the years, nothing currently. Denies hematemesis, hemoptysis, abdominal pain, nausea, vomiting. MERVAT ALMANZA [address], [place], [address], [place] [facility] 05/05/2024 14:24:38 05/08/2024 text/html Pt presents for 1 mo f/u. States that she is established with cardiology, but has not been taking carvedilol or rosuvastatin. Pt c/o numbness/tingling/ throbbing sensation to both hands since 11/2023.She has not established with nephrology. CAMI WILLARD Attn: Accounting,[address] [facility], [place], [address], [facility] 05/12/2024 11:34:51 06/09/2024 text/html Pt presents for T2DM f/u. States that her fasting BS have been between 120s-140s and post prandial 150s or less. She has upcoming appts with Cardio and Bridge Mechanic. Requesting shower chair. CAMI WILLARD Attn: Accounting,[address] [facility], [place], [address], [facility] 06/09/2024 11:12:39 06/17/2024 text/html Ms. Thakkar is [...] extremity edema. Maxine Carrasco MD Attn: Accounting,[address] [facility], [place], [address], [facility] 06/17/2024 17:19:35 07/13/2024 text/html 58 yo F [...] episodes have occurred. CAMI APPIAH Attn: Accounting,[address] [place], [address], [facility] 07/17/2024 10:23:51 OBGyn Episode No OBEpisode recorded.
[2024-09-18] MEDS: SODIUM CHLORIDE 0.9% IV 1,000 ML 999 ML IV CONT (19:25)
== END 2024-09-18 21:30 | disposition home or self-care (01) ==
PROVIDERS: Physician Assistant; Emergency Provider Physician Assistant; PCP Physician Assistant
DX: I95.1 Orthostatic hypotension (principal); I10 Essential (primary) hypertension; E11.9 Type 2 diabetes mellitus without complications; Z86.73 Personal history of transient ischemic attack (TIA), and cerebral infarction without residual deficits; Z79.82 Long term (current) use of aspirin; Z79.899 Other long term (current) drug therapy
CPT/HCPCS: 36415; 71046; 80053; 82948; 84484; 85025; 85380; 85610; 85730; 93005; 96360; 99284; J7030